=== PATIENT | male | born 1940 | race Caucasian/White ===

== ENCOUNTER 2016-08-08 00:55 | Inpatient (IN) | payer MEDICARE, OTHER ==
[2016-08-08] VITALS (13 sets, daily range): BP systolic 98–124; BP diastolic 50–72
[~2016-08-08] VITALS: Ht 170.2 cm; Wt 68.9 kg
[~2016-08-08 00:55] MED LIST: ASPI-482 PO; BENA20TA2 PO; CYAN100031 PO; FOLI0.8T2 PO; MAGN400C PO; METO25TA4 PO; NITR0.4T SL; PANT40TA5 PO; POTA10TA31 PO; SIMV40TA3 PO; TAMS0.4C2 PO; VITA1TAB31 PO
[2016-08-08 01:59] LABS: BASO % 0 % (0-3); EOS % 1 % (0-3); HEMATOCRIT 35.1 % (39.0-53.0); HEMOGLOBIN 11.2 g/dL (13.0-17.5); LYMPH # 1.5 x10^3/uL (1.0-4.8); LYMPH % 8 % (24-48); MEAN CORPUSCULAR HEMOGLOBIN 28 pg (25-35); MEAN CORPUSCULAR HGB CONC 32 g/dL (31-37); MEAN CORPUSCULAR VOLUME 89 fL (79-100); MONO % 5 % (0-9); NEUT % 86 % (31-73); PLATELET COUNT 281 x10^3/uL (140-400); RED BLOOD COUNT 3.95 x10^6/uL (4.30-5.70); RED CELL DISTRIBUTION WIDTH 13.7 % (11.5-14.5)
[2016-08-08] MEDS ORDERED: fentaNYL PF VIAL 100 MCG/2 ML VIAL IV PRN ×4 (02:00→12:45)
[2016-08-08 02:08] LABS: INR 1.2 (0.8-1.1)
[2016-08-08 02:10] LABS: CALCIUM 8.7 mg/dL (8.5-10.1); CREATININE 1.2 mg/dL (0.7-1.3); GFR 59.3; POTASSIUM 4.4 mmol/L (3.5-5.1)
[2016-08-08] MEDS ORDERED: IV NORMAL SALINE 1000ML BAG 1,000 ML IV SCH (02:15)
[2016-08-08] MEDS ORDERED: PANTOPRAZOLE IV PUSH 40 MG VIAL. IVP ONE (02:15)
[2016-08-08] MEDS ORDERED: ONDANSETRON PF 4 MG/2 ML VIAL. IV ONE (02:15)
--- NOTE | 2016-08-08 02:15 | PHYS DOC ---
Past Medical History Past Medical History: CAD, Cancer, High Cholesterol, Other Additional Past Medical Histor: ESOPHAGUS CANCER 2012,UT 2011 W STENT X 1, Past Surgical History: Other Additional Past Surgical Histo: CARDIAC STENTS,THYROIDECTOMY,PARTAIL ESOPH. REMOVAL Alcohol Use: Occasionally Drug Use: None Adult General Chief Complaint Chief Complaint: HEMATEMESIS/VOMITING BLOOD HPI HPI Patient is a 75 year old male who presents with hematemesis. Patient states his symptoms started approximately 5 hours prior to arrival. Patient states he suddenly had vomiting of bright red blood at home. Patient states that he had been having nausea for the past 3-4 days. 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 Patient has undergone treatment with radiation and chemotherapy. Patient states his last treatments were given over one year ago. Patient states that he has had problems with bleeding peptic ulcers in the past. Patient denies any black stools. Patient has had lightheadedness and states that prior to arrival he had upper abdominal pain. Patient states currently he is having no pain but still feels nauseous and weak. Patient has not taken any medications to help with symptoms at this time. Review of Systems Review of Systems Constitutional: Generalized weakness, denies fever or chills [] Eyes: Denies change in visual acuity, redness, or eye pain [] HENT: Denies nasal congestion or sore throat [] Respiratory: Denies cough or shortness of breath [] Cardiovascular: Denies chest pain or edema [] GI: Abdominal pain, nausea, hematemesis, denies bloody stools [] : Denies dysuria or hematuria [] Musculoskeletal: Denies back pain or joint pain [] Integument: Denies rash or skin lesions [] Neurologic: Denies headache, focal weakness or sensory changes [] Current Medications Current Medications Current Medications Medications (Trade) Dose Ordered Sig/Rita Start Time Stop Time Status Last Admin Dose Admin Fentanyl Citrate (Fentanyl 2ml Vial) 50 mcg PRN Q2HR PRN 08/08/16 03:30 08/09/16 03:29 Ondansetron HCl (Zofran) 4 mg PRN Q8HRS PRN 08/08/16 03:30 08/09/16 03:29 Pantoprazole Sodium (Protonix Vial) 40 mg 1X ONCE 08/08/16 02:15 08/08/16 02:16 DC 08/08/16 02:18 40 MG Pantoprazole Sodium 80 mg/ Sodium Chloride 100 ml @ 10 mls/hr Q10H 08/08/16 03:30 08/09/16 03:29 Sodium Chloride 1,000 ml @ 100 mls/hr Q10H 08/08/16 03:26 08/09/16 03:25 Allergies Allergies Allergies Coded Allergies Type Severity Reaction Last Updated Verified morphine Allergy Intermediate HALLUCINATE 10/08/15 Yes Penicillins Allergy Mild JOINT PAIN 10/08/15 Yes Physical Exam Physical Exam Constitutional: Alert, afebrile, appears ill. [] HENT: Normocephalic, atraumatic, bilateral external ears normal, oropharynx moist, no oral exudates, nose normal. [] Eyes: PERRLA, EOMI, conjunctiva normal, no discharge. [] Neck: Normal range of motion, no tenderness, supple, no stridor. [] Cardiovascular: Tachycardia, regular rhythm, no murmur [] Lungs & Thorax: Bilateral breath sounds clear to auscultation [] Abdomen: Bowel sounds normal, soft, no tenderness, no masses, no pulsatile masses. [] Skin: Warm, dry, no erythema, no rash. [] Back: No tenderness, no CVA tenderness. [] Extremities: No tenderness, no cyanosis, no clubbing, ROM intact, no edema. [] Neurologic: Alert and oriented X 3, normal motor function, normal sensory function, no focal deficits noted. [] Current Patient Data Vital Signs Vital Signs Date Time Temp Pulse Resp B/P (MAP) Pulse Ox O2 Delivery O2 Flow Rate FiO2 08/08/16 01:15 98.1 116 16 106/70 (82) 92 Room Air 98.1 Lab Values Laboratory Tests Test 08/08/16 01:20 White Blood Count 18.0 x10^3/uL (4.0-11.0) H Red Blood Count 3.95 x10^6/uL (4.30-5.70) L Hemoglobin 11.2 g/dL (13.0-17.5) L Hematocrit 35.1 % (39.0-53.0) L Mean Corpuscular Volume 89 fL (79-100) Mean Corpuscular Hemoglobin 28 pg (25-35) Mean Corpuscular Hemoglobin Concent 32 g/dL (31-37) Red Cell Distribution Width 13.7 % (11.5-14.5) Platelet Count 281 x10^3/uL (140-400) Neutrophils (%) (Auto) 86 % (31-73) H Lymphocytes (%) (Auto) 8 % (24-48) L Monocytes (%) (Auto) 5 % (0-9) Eosinophils (%) (Auto) 1 % (0-3) Basophils (%) (Auto) 0 % (0-3) Neutrophils # (Auto) 15.4 x10^3uL (1.8-7.7) H Lymphocytes # (Auto) 1.5 x10^3/uL (1.0-4.8) Monocytes # (Auto) 0.9 x10^3/uL (0.0-1.1) Eosinophils # (Auto) 0.1 x10^3/uL (0.0-0.7) Basophils # (Auto) 0.0 x10^3/uL (0.0-0.2) Segmented Neutrophils % 85 % (35-66) H Band Neutrophils % 1 % (0-9) Lymphocytes % 11 % (24-48) L Monocytes % 2 % (0-10) Metamyelocytes % 1 % (0-0) H Platelet Estimate Adequate (ADEQUATE) Prothrombin Time 14.0 SEC (11.7-14.0) Prothrombin Time INR 1.2 (0.8-1.1) H PTT 30 SEC (24-38) Sodium Level 142 mmol/L (136-145) Potassium Level 4.4 mmol/L (3.5-5.1) Chloride Level 103 mmol/L (98-107) Carbon Dioxide Level 31 mmol/L (21-32) Anion Gap 8 (6-14) Blood Urea Nitrogen 44 mg/dL (8-26) H Creatinine 1.2 mg/dL (0.7-1.3) Estimated GFR (Cockcroft-Gault) 59.3 BUN/Creatinine Ratio 37 (6-20) H Glucose Level 211 mg/dL (70-99) H Calcium Level 8.7 mg/dL (8.5-10.1) Total Bilirubin 0.3 mg/dL (0.2-1.0) Aspartate Amino Transferase (AST) 14 U/L (15-37) L Alanine Aminotransferase (ALT) 17 U/L (16-63) Alkaline Phosphatase 77 U/L (46-116) Total Protein 7.0 g/dL (6.4-8.2) Albumin 3.2 g/dL (3.4-5.0) L Albumin/Globulin Ratio 0.8 (1.0-1.7) L Lipase 141 U/L (73-393) Laboratory Tests 08/08/16 01:20 Laboratory Tests 08/08/16 01:20 EKG EKG Interpreted by me: Heart rate 93, sinus rhythm, normal intervals, normal axis, no acute ST/T-wave abnormalities present [] Radiology/Procedures Radiology/Procedures 3 view acute abdominal series interpreted by me: No pulmonary infiltrates or effusions, no free air under the diaphragm, nonobstructive bowel gas pattern [] Course & Med Decision Making Course & Med Decision Making Pertinent Labs and Imaging studies reviewed. (See chart for details) Patient started on IV fluids, fentanyl, Protonix, and Zofran. The patient will be continued on Protonix drip. Patient hemoglobin at this time is slightly decreased and patient's BUN level is significantly elevated. Patient is hemodynamically stable at this time. The patient will be continued on IV Protonix drip and IV fluids and will be admitted to the hospital for further evaluation and care. Patient admitted to Dr. Maher. A consult was placed to Dr. Jaimes of gastroenterology to follow with patient in hospital. Dragon Disclaimer Dragon Disclaimer This electronic medical record was generated, in whole or in part, using a voice recognition dictation system. Departure Departure Impression: Primary Impression: Acute GI bleeding Additional Impressions: Peptic ulcer disease History of esophageal cancer Hyperglycemia Mild protein malnutrition Disposition: ADMITTED INPATIENT Admitting Physician: Pranav Maher Condition: GUARDED Referrals: GRUPO RICHARDSON Jr, MD (PCP) Problem Qualifiers JOSE MIGUEL FIELD MD August 08, 2016 02:15
[2016-08-08 02:17] LABS: ALBUMIN 3.2 g/dL (3.4-5.0); ALBUMIN/GLOBULIN RATIO 0.8 (1.0-1.7); TOTAL BILIRUBIN 0.3 mg/dL (0.2-1.0)
[2016-08-08 03:05] LABS: PLT ESTIMATE ADEQUATE (ADEQUATE)
[2016-08-08] MEDS ORDERED: ONDANSETRON PF 4 MG/2 ML VIAL. IV PRN ×2 (03:30→09:36)
[2016-08-08] MEDS: PANTOPRAZOLE SODIUM IV 80 MG in IV NORMAL SALINE 100ML 100 ML IV SCH ×3 (05:06→23:30)
[2016-08-08] MEDS: IV NORMAL SALINE 1000ML BAG 1,000 ML IV SCH ×3 (05:06→18:25)
[2016-08-08] MEDS ORDERED: MAG355OR12 PO (05:56)
[2016-08-08] MEDS ORDERED: PSYL0.5215 PO (05:56)
[2016-08-08] MEDS ORDERED: HYDR12.58 PO (05:56)
[2016-08-08] MEDS ORDERED: ASPI-482 PO (05:56)
[2016-08-08] MEDS ORDERED: OMEP20CA9 PO (05:56)
--- NOTE | 2016-08-08 06:43 | EKG ---
[facility] [address] [place] [address] Test Date: 2016-08-08 Test Time: 01:23:40 Pat Name: RIMA DEL REAL Department: Room: 402 1 Gender: M Urology Teacher: TW EMT : 1940 Requested By: JOSE MIGUEL FIELD Order Number: [id number] Reading MD: Pierre Baltazar Measurements Intervals [place] Rate: 93 P: 51 CA: 156 QRS: -34 QRSD: 80 T: 49 QT: 364 QTc: 455 Interpretive Statements SINUS RHYTHM Electronically Signed On 08-09-2016 9:23:36 CDT by Pierre Baltazar
--- NOTE | 2016-08-08 08:16 | RAD ---
Indication hematemesis. A single view of the chest was obtained as well as flat and upright films of the abdomen. The chest is compared to a study 02/24/2015. There are changes compatible with esophagectomy and gastric pull-up. The appearance of the chest is similar to the previous exam. The heart and pulmonary vessels are within normal limits. An acute parenchymal infiltrate in the chest or significant change compared to the previous exam is not seen. There is no free air. An acute finding in the abdomen is not apparent on plain films. Benign-appearing calcifications are noted. IMPRESSION: No acute finding seen in the chest or abdomen on plain films
--- NOTE | 2016-08-08 09:14 | PDOC2 ---
GI CONSULT Reason For Consult: Upper GI Bleed HPI: HPI: 75 y/o male admitted through the ER for hematemesis. He reports he has had some vague lower abdominal pain and has been losing some weight. He ate dinner around 7:00 or 8:00 last night, and then at 9:00 felt "sick to his stomach" and vomited "dark purple" material about 3 times. Bleeding has not recurred since admission. Labs: WBC 18, Hgb 11.2, INR 1.2, BUN 44. Abd x-ray unrevealing. Has been NPO on PPI drip. GI history is significant for esophageal cancer s/p resection and chemo/ radiation in 2012. Relays history of GI bleed in 2014; saw Dr. Celaya and reports EGD showed some small gastric ulcers. Seems had colonoscopy a couple months later (also w/ Dr. Celaya) which showed "a lot of holes" (diverticulosis). Takes ASA 81mg QD, no other NSAIDs. Takes omeprazole and Maalox QHS. Denies dysphagia, diarrhea, constipation, melena, hematochezia. His is actually currently admitted as well. PMH: PMH: esophageal cancer s/p resection w/ chemo/radiation, [place], CAD s/p stent, COPD, HLD , partial thyroidectomy, cholecystectomy, PEG tube placement/removal FH: Family History: No pertinent hx Social History: Smoke: Quit ALCOHOL: occassional (1-2 beers per month) Drugs: None ROS: GEN: Denies fevers, chills, sweats HEENT: Denies blurred vision, sore throat CV: Denies chest pain RESP: Denies shortness of air, cough GI: Per HPI : Denies hematuria, dysuria ENDO: +weight loss NEURO: Denies confusion, dizziness MSK: Denies weakness, joint pain/swelling SKIN: Denies jaundice, pruritus Vitals: Vitals: Vital Signs Date Time Temp Pulse Resp B/P (MAP) Pulse Ox O2 Delivery O2 Flow Rate FiO2 08/08/16 07:15 97.9 97 18 113/66 (82) 96 Room Air 97.9 Labs: Labs: Laboratory Tests Test 08/08/16 01:20 White Blood Count 18.0 x10^3/uL (4.0-11.0) Red Blood Count 3.95 x10^6/uL (4.30-5.70) Hemoglobin 11.2 g/dL (13.0-17.5) Hematocrit 35.1 % (39.0-53.0) Mean Corpuscular Volume 89 fL (79-100) Mean Corpuscular Hemoglobin 28 pg (25-35) Mean Corpuscular Hemoglobin Concent 32 g/dL (31-37) Red Cell Distribution Width 13.7 % (11.5-14.5) Platelet Count 281 x10^3/uL (140-400) Neutrophils (%) (Auto) 86 % (31-73) Lymphocytes (%) (Auto) 8 % (24-48) Monocytes (%) (Auto) 5 % (0-9) Eosinophils (%) (Auto) 1 % (0-3) Basophils (%) (Auto) 0 % (0-3) Neutrophils # (Auto) 15.4 x10^3uL (1.8-7.7) Lymphocytes # (Auto) 1.5 x10^3/uL (1.0-4.8) Monocytes # (Auto) 0.9 x10^3/uL (0.0-1.1) Eosinophils # (Auto) 0.1 x10^3/uL (0.0-0.7) Basophils # (Auto) 0.0 x10^3/uL (0.0-0.2) Segmented Neutrophils % 85 % (35-66) Band Neutrophils % 1 % (0-9) Lymphocytes % 11 % (24-48) Monocytes % 2 % (0-10) Metamyelocytes % 1 % (0-0) Platelet Estimate Adequate (ADEQUATE) Prothrombin Time 14.0 SEC (11.7-14.0) Prothromb Time International Ratio 1.2 (0.8-1.1) Activated Partial Thromboplast Time 30 SEC (24-38) Sodium Level 142 mmol/L (136-145) Potassium Level 4.4 mmol/L (3.5-5.1) Chloride Level 103 mmol/L (98-107) Carbon Dioxide Level 31 mmol/L (21-32) Anion Gap 8 (6-14) Blood Urea Nitrogen 44 mg/dL (8-26) Creatinine 1.2 mg/dL (0.7-1.3) Estimated GFR (Cockcroft-Gault) 59.3 BUN/Creatinine Ratio 37 (6-20) Glucose Level 211 mg/dL (70-99) Calcium Level 8.7 mg/dL (8.5-10.1) Total Bilirubin 0.3 mg/dL (0.2-1.0) Aspartate Amino Transf (AST/SGOT) 14 U/L (15-37) Alanine Aminotransferase (ALT/SGPT) 17 U/L (16-63) Alkaline Phosphatase 77 U/L (46-116) Total Protein 7.0 g/dL (6.4-8.2) Albumin 3.2 g/dL (3.4-5.0) Albumin/Globulin Ratio 0.8 (1.0-1.7) Lipase 141 U/L (73-393) Allergies: Coded Allergies: morphine (Verified Allergy, Intermediate, HALLUCINATE, 10/08/15) Penicillins (Verified Allergy, Mild, JOINT PAIN, 10/08/15) Medications: Current Medications Medications (Trade) Dose Ordered Sig/Rita Route PRN Reason Start Time Stop Time Status Last Admin Dose Admin Sodium Chloride 1,000 ml @ 1,000 mls/hr Q1H IV 08/08/16 02:15 08/08/16 03:14 DC 08/08/16 02:19 Ondansetron HCl (Zofran) 4 mg 1X ONCE IV 08/08/16 02:15 08/08/16 02:16 DC 08/08/16 02:18 Pantoprazole Sodium (Protonix Vial) 40 mg 1X ONCE IVP 08/08/16 02:15 08/08/16 02:16 DC 08/08/16 02:18 Sodium Chloride 1,000 ml @ 100 mls/hr Q10H IV 08/08/16 03:26 08/09/16 03:25 08/08/16 05:06 Pantoprazole Sodium 80 mg/ Sodium Chloride 100 ml @ 10 mls/hr Q10H IV 08/08/16 03:30 08/09/16 03:29 08/08/16 05:06 Imaging: Imaging: Acute Abd Series 08/08/16 IMPRESSION: No acute finding seen in the chest or abdomen on plain films. PE: GEN: NAD HEENT: Atraumatic, PERRL LUNGS: CTAB anteriorly HEART: RRR ABD: NABS, S/ND, BLQ discomfort EXTREMITY: No edema SKIN: No rashes, no jaundice NEURO/PSYCH: A & O 3 A/P: A/P: Hematemesis -sudden onset last night, "dark purple" emesis x 3 -takes ASA 81mg QD + omeprazole and Maalox QHS Lower abd pain, weight loss H/o esophageal cancer s/p resection, chemo/rad -2012 H/o GI bleed, PUD, diverticulosis -had EGD and colonoscopy w/ Dr. Celaya in [id number] CRC screen -up to date Leukocytosis, anemia -Hgb 11.2 w/ elevated BUN -Hgb was in 7-9 range around the time of previous GI bleed -- Keep NPO on PPI drip. EGD this afternoon to assess for recurrent esophageal cancer, esophagitis, or PUD. D/w GI lab and CUONG. KRISTIN REDMOND August 08, 2016 09:14
--- NOTE | 2016-08-08 11:59 | PDOC1 ---
History and Physical Date of Admission Date of Admission DATE: 08/08/16 TIME: 11:54 Identification/Chief Complaint Chief Complaint vomited blood at home after dinner Problems: Source Source: Caregiver, Chart review, Patient History of Present Illness History of Present Illness Very pleasant 75 y.o male, hx esophageal CA? s/p resection? chemo/ radiation, went home after visiting his here who is hospitalized, ate dinner, then vomited blood quite significant amount, did it 3x. SOme abd pain, Known to Dr. Mendoza, last EGD 18 mos ago., did twice, second time found "ulcers". Followed by Cscope afterwards, was ok. VS ok, hgb 11. started on IVF and PPI gtt on admit by ER/GI. PLans of EGD today, Pt denies any recurrence since admit, no pain, watching tv TAkes ASA 81 at home, no NSAIDs or AC (blood thinners) Past Medical History Cardiovascular: No pertinent hx Pulmonary: No pertinent hx GI: Gastritis, Other Heme/Onc: Cancer Infectious disease: No pertinent hx Renal/: No pertinent hx Endocrine: No pertinent hx Past Surgical History Past Surgical History: Other Family History Family History: No Significant Social History Smoke: No ALCOHOL: none (1-2 beers per month) Drugs: None Current Problem List Problem List Problems Medical Problems: (1) Acute GI bleeding Status: Acute (2) History of esophageal cancer Status: Acute (3) Hyperglycemia Status: Acute (4) Mild protein malnutrition Status: Acute (5) Peptic ulcer disease Status: Acute Problems: Current Medications Current Medications Current Medications Fentanyl Citrate (Fentanyl 2ml Vial) 50 mcg PRN Q15MIN PRN IV PAIN GREATER THAN 3/10; Start 08/08/16 at 02:00; Stop 08/08/16 at 05:00; Status DC Sodium Chloride 1,000 ml @ 1,000 mls/hr Q1H IV Last administered on 08/08/16 02:19; Start 08/08/16 at 02:15; Stop 08/08/16 at 03:14; Status DC Ondansetron HCl (Zofran) 4 mg 1X ONCE IV Last administered on 08/08/16 02:18 ; Start 08/08/16 at 02:15; Stop 08/08/16 at 02:16; Status DC Pantoprazole Sodium (Protonix Vial) 40 mg 1X ONCE IVP Last administered on 02:18; Start 08/08/16 at 02:15; Stop 08/08/16 at 02:16; Status DC Ondansetron HCl (Zofran) 4 mg PRN Q8HRS PRN IV NAUSEA/VOMITING; Start 08/08/16 at 03:30; Stop 08/08/16 at 09:38; Status DC Fentanyl Citrate (Fentanyl 2ml Vial) 50 mcg PRN Q2HR PRN IV SEVERE PAIN; Start 08/08/16 at 03:30; Stop 08/09/16 at 03:29 Sodium Chloride 1,000 ml @ 100 mls/hr Q10H IV Last administered on 08/08/16 05:06; Start 08/08/16 at 03:26; Stop 08/09/16 at 03:25 Pantoprazole Sodium 80 mg/ Sodium Chloride 100 ml @ 10 mls/hr Q10H IV Last administered on 08/08/16 05:06; Start 08/08/16 at 03:30; Stop 08/09/16 at 03:29 Ondansetron HCl (Zofran) 4 mg PRN Q6HRS PRN IV NAUSEA/VOMITING; Start 08/08/16 at 09:36; Stop 08/09/16 at 09:35 Active Scripts Active Pantoprazole Sodium 40 Mg Tablet.dr 40 Mg PO BID Reported Metamucil (Psyllium Husk) 0.52 Gm Capsule 0.52 Gm PO PRN DAILY PRN Hydrochlorothiazide Tablet (Hydrochlorothiazide) 12.5 Mg Tablet 25 Mg PO DAILY Aspir 81 (Aspirin) 81 Mg Tablet.dr 1 Tab PO DAILY Maalox Maximum Strength Susp (Mag Hydrox/Al Hydrox/Simeth) 355 Ml Oral.susp 355 Ml PO DAILY Omeprazole 20 Mg Capsule.dr 1 Cap PO DAILYWSUP Potassium Chloride 10 Meq Tab.er.prt 10 Meq PO DAILY Tamsulosin Hcl 0.4 Mg Cap.er.24h 0.4 Mg PO B-12 (Cyanocobalamin (Vitamin B-12)) 1,000 Mcg Tablet.er 1,000 Mcg PO Metoprolol Tartrate 25 Mg Tablet 25 Mg PO BID Magnesium (Magnesium Oxide) 400 Mg Capsule 400 Mg PO Folic Acid 0.8 Mg Tablet 0.8 Mg PO D3 + K2 Dots 1,000 Units Tab (Vitamin D3/Vitamin K2) 1 Each Tab.rapdis 1 Each PO Simvastatin 40 Mg Tablet 40 Mg PO QHS Nitrostat (Nitroglycerin) 0.4 Mg Tab.subl 0.4 Mg SL Allergies Allergies: Coded Allergies: morphine (Verified Allergy, Intermediate, HALLUCINATE, 10/08/15) Penicillins (Verified Allergy, Mild, JOINT PAIN, 10/08/15) ROS General: No: Chills, Night Sweats, Fatigue, Malaise, Appetite, Other PSYCHOLOGICAL ROS: No: Anxiety, Behavioral Disorder, Concentration difficultie , Decreased libido, Depression, Disorientation, Hallucinations, Hostility, Irritablity, Memory difficulties, Mood Swings, Obsessive thoughts, Physical abuse, Sexual abuse, Sleep disturbances, Suicidal ideation, Other Eyes: No Blurry vision, No Decreased vision, No Double vision, No Dry eyes, No Excessive tearing, No Eye Pain, No Itchy Eyes, No Loss of vision, No Photophobia , No Scotomata, No Uses contacts, No Uses glasses, No Other HEENT: No: Heacaches, Visual Changes, Hearing change, Nasal congestion, Nasal discharge, Oral lesions, Sinus pain, Sore Throat, Epistaxis, Sneezing, Snoring, Tinnitus, Vertigo, Vocal changes, Other ALLERGY AND IMMUNOLOGY: No: Hives, Insect Bite Sensitivity, Itchy/Watery Eyes, Nasal Congestion, Post Nasal Drip, Seasonal Allergies, Other Hematological and Lymphatic: No: Bleeding Problems, Blood Clots, Blood Transfusions, Brusing, Night Sweats, Pallor, Swollen Lymph Nodes, Other ENDOCRINE: No: Breast Changes, Galactorrhea, Hair Pattern Changes, Hot Flashes , Malaise/lethargy, Mood Swings, Palpitations, Polydipsia/polyuria, Skin Changes , Temperature Intolerance, Unexpected Weight Changes, Other Breast: No New/Changing Breast Lumps, No Nipple changes, No Nipple discharge, No Other Respiratory: No: Cough, Hemoptysis, Orthopnea, Pleuritic Pain, Shortness of breath, SOB with excertion, Sputum Changes, Stridor, Tachypnea, Wheezing, Other Cardiovascular: No Chest Pain, No Palpitations, No Orthopnea, No Paroxysmal Noc. Dyspnea, No Edema, No Lt Headedness, No Other Gastrointestinal: No Nausea, No Vomiting, No Abdominal Pain, No Diarrhea, No Constipation, No Melena, No Hematochezia, No Other Genitourinary: No Dysuria, No Frequency, No Incontinence, No Hematuria, No Retention, No Discharge, No Urgency, No Pain, No Flank Pain, No Other, No , No , No , No , No , No , No Musculoskeletal: No Gait Disturbance, No Joint Pain, No Joint Stiffness, No Joint Swelling, No Muscle Pain, No Muscular Weakness, No Pain In:, No Swelling In:, No Other Neurological: No Behavorial Changes, No Bowel/Bladder ControlChng, No Confusion , No Dizziness, No Gait Disturbance, No Headaches, No Impaired Coord/balance, No Memory Loss, No Numbness/Tingling, No Seizures, No Speech Problems, No Tremors, No Visual Changes, No Weakness, No Other Skin: No Dry Skin, No Eczema, No Hair Changes, No Lumps, No Mole Changes, No Mottling, No Nail Changes, No Pruritus, No Rash, No Skin Lesion Changes, No Other, No Acne Physical Exam General: Alert, Oriented X3, Cooperative, No acute distress HEENT: PERRLA, EOMI Lungs: Clear to auscultation, Normal air movement Heart: S1S2, RRR, no thrills, no rubs, no gallops, no murmurs Cardiovascular: S1, S2 Abdomen: Normal bowel sounds, Soft, No tenderness, No hepatosplenomegaly, No masses Male Genitals Exam: normal genitalia, normal prostate Rectal Exam: not examined, mass Extremities: No clubbing, No cyanosis, No edema, Normal pulses, No tenderness/ swelling Skin: No rashes, No breakdown, No significant lesion Neuro: Normal gait, Normal speech, Strength at 5/5 X4 ext, Normal tone, Sensation intact, Cranial nerves 3-12 NL, Reflexes 2+ Psych/Mental Status: Mental status NL, Mood NL Vitals Vitals Vital Signs Date Time Temp Pulse Resp B/P (MAP) Pulse Ox O2 Delivery O2 Flow Rate FiO2 08/08/16 11:07 99.0 84 20 107/63 (78) 97 Room Air 99.0 Labs Labs Laboratory Tests Test 08/08/16 01:20 White Blood Count 18.0 x10^3/uL (4.0-11.0) Red Blood Count 3.95 x10^6/uL (4.30-5.70) Hemoglobin 11.2 g/dL (13.0-17.5) Hematocrit 35.1 % (39.0-53.0) Mean Corpuscular Volume 89 fL (79-100) Mean Corpuscular Hemoglobin 28 pg (25-35) Mean Corpuscular Hemoglobin Concent 32 g/dL (31-37) Red Cell Distribution Width 13.7 % (11.5-14.5) Platelet Count 281 x10^3/uL (140-400) Neutrophils (%) (Auto) 86 % (31-73) Lymphocytes (%) (Auto) 8 % (24-48) Monocytes (%) (Auto) 5 % (0-9) Eosinophils (%) (Auto) 1 % (0-3) Basophils (%) (Auto) 0 % (0-3) Neutrophils # (Auto) 15.4 x10^3uL (1.8-7.7) Lymphocytes # (Auto) 1.5 x10^3/uL (1.0-4.8) Monocytes # (Auto) 0.9 x10^3/uL (0.0-1.1) Eosinophils # (Auto) 0.1 x10^3/uL (0.0-0.7) Basophils # (Auto) 0.0 x10^3/uL (0.0-0.2) Segmented Neutrophils % 85 % (35-66) Band Neutrophils % 1 % (0-9) Lymphocytes % 11 % (24-48) Monocytes % 2 % (0-10) Metamyelocytes % 1 % (0-0) Platelet Estimate Adequate (ADEQUATE) Prothrombin Time 14.0 SEC (11.7-14.0) Prothromb Time International Ratio 1.2 (0.8-1.1) Activated Partial Thromboplast Time 30 SEC (24-38) Sodium Level 142 mmol/L (136-145) Potassium Level 4.4 mmol/L (3.5-5.1) Chloride Level 103 mmol/L (98-107) Carbon Dioxide Level 31 mmol/L (21-32) Anion Gap 8 (6-14) Blood Urea Nitrogen 44 mg/dL (8-26) Creatinine 1.2 mg/dL (0.7-1.3) Estimated GFR (Cockcroft-Gault) 59.3 BUN/Creatinine Ratio 37 (6-20) Glucose Level 211 mg/dL (70-99) Calcium Level 8.7 mg/dL (8.5-10.1) Total Bilirubin 0.3 mg/dL (0.2-1.0) Aspartate Amino Transf (AST/SGOT) 14 U/L (15-37) Alanine Aminotransferase (ALT/SGPT) 17 U/L (16-63) Alkaline Phosphatase 77 U/L (46-116) Total Protein 7.0 g/dL (6.4-8.2) Albumin 3.2 g/dL (3.4-5.0) Albumin/Globulin Ratio 0.8 (1.0-1.7) Lipase 141 U/L (73-393) Laboratory Tests Test 08/08/16 01:20 White Blood Count 18.0 x10^3/uL (4.0-11.0) Red Blood Count 3.95 x10^6/uL (4.30-5.70) Hemoglobin 11.2 g/dL (13.0-17.5) Hematocrit 35.1 % (39.0-53.0) Mean Corpuscular Volume 89 fL (79-100) Mean Corpuscular Hemoglobin 28 pg (25-35) Mean Corpuscular Hemoglobin Concent 32 g/dL (31-37) Red Cell Distribution Width 13.7 % (11.5-14.5) Platelet Count 281 x10^3/uL (140-400) Neutrophils (%) (Auto) 86 % (31-73) Lymphocytes (%) (Auto) 8 % (24-48) Monocytes (%) (Auto) 5 % (0-9) Eosinophils (%) (Auto) 1 % (0-3) Basophils (%) (Auto) 0 % (0-3) Neutrophils # (Auto) 15.4 x10^3uL (1.8-7.7) Lymphocytes # (Auto) 1.5 x10^3/uL (1.0-4.8) Monocytes # (Auto) 0.9 x10^3/uL (0.0-1.1) Eosinophils # (Auto) 0.1 x10^3/uL (0.0-0.7) Basophils # (Auto) 0.0 x10^3/uL (0.0-0.2) Segmented Neutrophils % 85 % (35-66) Band Neutrophils % 1 % (0-9) Lymphocytes % 11 % (24-48) Monocytes % 2 % (0-10) Metamyelocytes % 1 % (0-0) Platelet Estimate Adequate (ADEQUATE) Prothrombin Time 14.0 SEC (11.7-14.0) Prothromb Time International Ratio 1.2 (0.8-1.1) Activated Partial Thromboplast Time 30 SEC (24-38) Sodium Level 142 mmol/L (136-145) Potassium Level 4.4 mmol/L (3.5-5.1) Chloride Level 103 mmol/L (98-107) Carbon Dioxide Level 31 mmol/L (21-32) Anion Gap 8 (6-14) Blood Urea Nitrogen 44 mg/dL (8-26) Creatinine 1.2 mg/dL (0.7-1.3) Estimated GFR (Cockcroft-Gault) 59.3 BUN/Creatinine Ratio 37 (6-20) Glucose Level 211 mg/dL (70-99) Calcium Level 8.7 mg/dL (8.5-10.1) Total Bilirubin 0.3 mg/dL (0.2-1.0) Aspartate Amino Transf (AST/SGOT) 14 U/L (15-37) Alanine Aminotransferase (ALT/SGPT) 17 U/L (16-63) Alkaline Phosphatase 77 U/L (46-116) Total Protein 7.0 g/dL (6.4-8.2) Albumin 3.2 g/dL (3.4-5.0) Albumin/Globulin Ratio 0.8 (1.0-1.7) Lipase 141 U/L (73-393) VTE Prophylaxis Ordered VTE Prophylaxis Devices: Contraindicated VTE Pharmacological Prophylaxi: Contraindicated Assessment/Plan Assessment/Plan 1. Hematemesis 2. Acute blood loss anemia, possible on top of chronic anemia of hx malignancy 3. esophageal cancer s/p resection w/ chemo/radiation, [place], CAD s/p stent, COPD, HLD, partial thyroidectomy, cholecystectomy, PEG tube placement/removal PLAN: NPO, PPI gtt Admit 2MN IVF GI consult NO NSAIDs, hold ASA, hold AC SCDs supportive care Dw pt and RN and his JAMES ARRIAGA August 08, 2016 11:59
[2016-08-08] MEDS ORDERED: LIDOCAINE 1% 1 ML SYRINGE. ID PRN (12:45)
[2016-08-08] MEDS ORDERED: MIDAZOLAM HCL/PF 2 MG/2 ML VIAL. IV PRN (12:45)
[2016-08-08] MEDS: IV RINGERS,LACTATED 1000ML 1,000 ML IV SCH ×2 (12:52→20:31)
[2016-08-08] MEDS ORDERED: LIDOCAINE 2% PF Vial for OR 5 ML VIAL. ONE (13:17)
[2016-08-08] MEDS ORDERED: PROPOFOL 20 ML IV ONE ×2 (13:17→13:41)
--- NOTE | 2016-08-08 13:46 | PDOC4 ---
Operative Note Operative Note EGD Meds propofol per anesthesia Pre-op dx acute blood loss anemia/hematemesis Post-op dx normal esophagus s/p pull through with ge junction at 30 cm and clear GE junction without varices normal duodenum without ulcer or retained blood after washing adherent clot less er [id number] base Plan IR consult for possible embolization RYAN MONTE MD August 08, 2016 13:46
[2016-08-08] MEDS ORDERED: IOHEXOL 300 MG/ML 100ML VIAL. ONE (14:46)
[2016-08-08] MEDS ORDERED: HEPARIN for ARTERIAL LINE 1,500 ML ONE (14:47)
[2016-08-08] MEDS ORDERED: LIDOCAINE 1% / SOD BICARB 8.4% 20 ML VIAL. IJ ONE ×2 (14:47→16:00)
[2016-08-08] MEDS ORDERED: MIDAZOLAM HCL/PF 5 MG/5 ML VIAL. ONE (15:31)
[2016-08-08] MEDS ORDERED: fentaNYL PF VIAL 250 MCG/5 ML VIAL ONE (15:31)
[2016-08-08] MEDS ORDERED: fentaNYL PF VIAL 250 MCG/5 ML VIAL IV ONE (16:00)
[2016-08-08] MEDS ORDERED: NITROGLYCERIN 200 MCG/2 ML SYRINGE FOR CATH/VASC LAB. IART ONE (16:00)
[2016-08-08] MEDS ORDERED: IOHEXOL 300 MG/ML 100ML VIAL. IART ONE (16:00)
[2016-08-08] MEDS ORDERED: MIDAZOLAM HCL/PF 5 MG/5 ML VIAL. IV ONE (16:00)
[2016-08-08] MEDS ORDERED: CONTRAST GIVEN MC PRN (16:15)
[2016-08-08] MEDS ORDERED: GELATIN SPONGE SIZE 12-7MM SPONGE. ONE (16:20)
--- NOTE | 2016-08-08 17:13 | PDOC ---
MODERATE SEDATION ASSESSMENT RISKS/ALTERNATIVES Risks/Alternatives Risks and alternatives of this type of sedation and procedure discussed with: RISK/ALTERNATIVES: Patient H & P ON CHART H & P H & P on chart and reviewed for co-morbid conditions and appropriate labs. H&P ON CHART: Yes STATUS PREG STATUS ASSESSED: N/A MEDS/ALLERGIES REVIEWED Meds/Allergies Reviewed Medications and Allergies including time and route of recently administered narcotics and sedatives. MEDS/ALLERGIES REVIEWED: Yes ASA RATING ASA RATING: II AIRWAY ASSESSMENT Airway Assessment Airway patency, oral function limitations, presence of caps, crowns, dentures, partials, and ability to extend neck assessed. AIRWAY ASSESSMENT: Yes MALLAMPATI SCORE MALLAMPATI SCORE: II PRE-SEDATION ASSESSMENT PRE-SEDATION ASSESSMENT: Yes JOIE FARRELL MD August 08, 2016 17:13
--- NOTE | 2016-08-08 17:19 | PDOC ---
Exam Transit Operations Supervisor Transit Operations Supervisor Reinier Classification Control Clerk Classification Control Clerk F Ndumbu Pre-Procedure Diagnosis Pre-Procedure Diagnosis Gastric bleed by EGD, s/p gastric pull-up procedure and XRT for esophageal cancer. Angio +/- embolization requested by GI. Post-Procedure Diagnosis Post-Procedure Diagnosis No active GI bleed identified. No LGA identified. Large caliber inferior epigastric artery from GDA is only visualized artery perfusing stomach, which lies almost entirely within chest. Procedure Performed Procedure Performed Selective/superselective celiac angio with trans-microcatheter embolization of inferior epigastric artery with Gelfoam slurry Type of Anesthesia Type of Anesthesia Local + Mod sedation Estimated Blood Loss EBL: 25 cc Condition of Patient Condition of Patient Hemodynamically stable. No apparent complication. Disposition Disposition From IR return to 402 for recovery. F/u with GI and HIMS. Full report to follow. JOIE FARRELL MD August 08, 2016 17:19
[2016-08-08] MEDS: TAMSULOSIN 0.4 MG CAP.ER.24H. PO SCH (21:34)
--- NOTE | 2016-08-09 02:04 | ACF ---
Admission Forms Criteria GASTROINTESTINAL BLEEDING Clinical Indications for Inpatient Care (Place 'X' for any and all applicable criteria): Ongoing inpatient care may be indicated for gastrointestinal bleeding with ANY ONE of the following (4)(20)(21)(22)(23)(24): [X ]I. Active bleeding (eg, fresh voluminous blood in emesis or nasogastric aspirate, or per rectum) [ ]II. Hemodynamic instability [ ]III. Anticoagulation therapy or coagulopathy ((eg, advanced liver disease, irreversible anticoagulation) [ ]IV. Ischemic colitis (22) [ ]V. Endoscopy showing arterial bleeding, adherent clot, nonbleeding visible vessel, varices, flat red spots, ulcer size greater than 2 cm, or portal hypertensive gastropathy [ ]. High-risk low platelet count [ ]VII. Anemia requiring inpatient care as indicated by ANY ONE of the following a)[ ] Cognitive impairment b)[ ] Syncope c)[ ] Heart failure d)[ ] Chest pain e)[ ] Dyspnea f)[ ] Other findings suggesting inadequate perfusion (eg, peripheral or myocardial ischemia, end organ dysfunction) [ ]VIII. High-risk low platelet count [ ]IX. Suspected variceal cause of bleeding as indicated by ANY ONE of the following(27)(28): a)[ ] Known varices b)[ ] Hepatomegaly or splenomegaly c)[ ] Ascites d)[ ] Jaundice or scleral icterus e)[ ] History of liver disease (eg, cirrhosis) f)[ ] Physical findings of portal hypertension (eg, caput medusa) g)[ ] Comorbid disorder indicating risk for portal vein thrombosis (eg , abdominal surgery, sepsis, shock, exchange transfusion, prior umbilical vein catheterization) Extended stay may be needed until ALL of the following are present(20)(38)(47): [ ]a) Hemodynamic stability [ ]b) No evidence of active bleeding (eg, stable Hematocrit) [ ]c) Platelet count, prothrombin time, and partial thromboplastin time acceptable for next level of care [ ]d) Surgical or other acute intervention not needed [ ]e) Oral hydration and diet tolerated The original [employer]aint[employer] content created by Rod Clifford has been revised. The portions of the content which have been revised are identified through the use of italic text or in bold, and Rod Clifford has neither reviewed nor approved the modified material. All other unmodified content is copyright [facility]. Please see references footnoted in the original [facility] edition 2016 Admission Criteria Met?: Yes JOANA OLIVERA Aug 09, 2016 02:03
[2016-08-09 03:05] VITALS: BP 109/56
[2016-08-09 06:36] LABS: BASO % 0 % (0-3); EOS % 0 % (0-3); HEMATOCRIT 27.3 % (39.0-53.0); HEMOGLOBIN 8.7 g/dL (13.0-17.5); LYMPH # 0.7 x10^3/uL (1.0-4.8); LYMPH % 4 % (24-48); MEAN CORPUSCULAR HEMOGLOBIN 28 pg (25-35); MEAN CORPUSCULAR HGB CONC 32 g/dL (31-37); MEAN CORPUSCULAR VOLUME 89 fL (79-100); MONO % 8 % (0-9); NEUT % 88 % (31-73); PLATELET COUNT 219 x10^3/uL (140-400); RED BLOOD COUNT 3.07 x10^6/uL (4.30-5.70); RED CELL DISTRIBUTION WIDTH 14.2 % (11.5-14.5); WHITE BLOOD COUNT 15.9 x10^3/uL (4.0-11.0)
[2016-08-09 06:55] LABS: GFR 73.2; POTASSIUM 3.9 mmol/L (3.5-5.1)
[2016-08-09 07:15] VITALS: BP 113/57
--- NOTE | 2016-08-09 07:22 | RAD ---
Selective/superselective celiac arteriogram (celiac, GDA, and inferior epigastric artery injections) Trans-microcatheter embolization of inferior epigastric artery Indication: 75-year-old male with upper GI bleed, status post gastric pull-up procedure with XRT for esophageal cancer. EGD revealed unremarkable esophagus and unremarkable duodenum, with a large amount of blood within stomach, consistent with gastric GI bleed. Diagnostic angiography, with possible embolization, has been requested by GI. Fluoroscopy time: 25.4 minutes Kerma-area Product: 275 Gycm2 Contrast material: 91 cc Omnipaque 300 Anesthesia: The patient was appropriately monitored by a qualified independent observer throughout the time of moderate sedation. Consent: The procedure was explained in its entirety to the patient and/or the patient's designated district representative by a member of the treatment team. This included a discussion of risks and benefits and commonly accepted alternatives to the procedure, as well as expected consequences of no treatment at all. Discussion of risks included, but was not limited to, those that are most frequent and those that are rare, but possibly severe or life-threatening, as well as the possibility of unforeseen complications. Sterility: All elements of maximal sterile barrier technique, hand hygiene, skin preparation, and, if ultrasound was used, sterile ultrasound technique were followed. Procedure: Informed consent was obtained from the patient and his . He was placed supine on the angiography table. Preliminary ultrasound examination of right groin revealed wide patency of right common femoral artery, which was documented with a single hard copy ultrasound image. Right groin was then prepped and draped in the usual sterile fashion, utilizing all elements of maximal sterile barrier technique, as described above. Moderate sedation was provided with IV Versed and fentanyl. Using aseptic technique, local anesthesia, direct ultrasound guidance, and the micropuncture system, a 6 [place] Gold 2 sheath was successfully introduced. Celiac trunk injection: The 6 [place] Gold 2 sheath was advanced superiorly under fluoroscopic guidance, and was utilized to selectively cannulate celiac trunk. Omnipaque 300 was injected and DSA images were obtained over celiac distribution. Findings: Celiac trunk is widely patent. Left gastric artery was not identified. Of note, this vessel was large in caliber and was easily seen on a preoperative CT chest done 07/28/2010, but was not identified on a postoperative CTA chest done 05/21/2012. Splenic artery, common hepatic artery, proper hepatic artery, are widely patent. Gastroduodenal artery is also widely patent. Large caliber inferior epigastric artery arises from distal gastroduodenal artery, and extends superiorly to provide major perfusion to stomach, which predominantly lies within chest, right of midline. No extravasation of injected contrast material was demonstrated, to document active GI bleeding. Gastroduodenal artery injection: The 6 [place] Gold 2 sheath was then further advanced from celiac trunk into mid common hepatic artery. A 4 [place] angled glide catheter was then inserted through the Ancel sheath, and was utilized to selectively cannulate gastroduodenal artery. Omnipaque 300 was injected and DSA images were obtained. Findings: Gastroduodenal artery is tortuous, but widely patent. Areas of guidewire induced vasospasm were noted, and were successfully treated with direct intra-arterial nitroglycerin. Large caliber inferior epigastric artery arises from the gastroduodenal artery, is widely patent, and extends superiorly to provide perfusion to stomach, which predominantly lies within chest, right of midline, status post gastric pull-up procedure for esophageal cancer. No active extravasation of injected contrast material was demonstrated. Inferior epigastric artery injection: A 2.4 [place] ProGreat microcatheter was coaxially inserted through the angled glide catheter, previously positioned within gastroduodenal artery. The microcatheter was then successfully advanced over a Selerity GT microguidewire through gastroduodenal artery into proximal segment of large caliber inferior epigastric artery. Omnipaque 300 was hand injected and DSA images were obtained. Utilizing magnification fluoroscopic guidance, control contrast injections, and roadmapping technique, the microcatheter was then further advanced superiorly, deeply into inferior epigastric artery, to a level above jeana. Omnipaque 300 was again injected and DSA images were again obtained. Findings: Inferior epigastric artery, and multiple tiny side branches, are patent. There was no demonstration of active GI bleeding. No vascular malformation or hypervascular mass was seen. Trans-microcatheter Gelfoam embolization of inferior epigastric artery: Due to this patient's known gastric upper GI bleed, with absent visualization of left gastric artery, empirical embolization of inferior epigastric artery was considered reasonable. Using aseptic technique and magnification fluoroscopic guidance, "pull-back" Gelfoam embolization of inferior epigastric artery was carefully performed, beginning distally at the level of jeana, then terminating near diaphragmatic hiatus. The microcatheter was then withdrawn into proximal inferior epigastric artery. Omnipaque 300 was injected and completion DSA images were obtained. Those images revealed satisfactory embolization, with very sluggish flow within inferior epigastric artery, and with markedly diminished opacification of multiple previously present small side branches. Patient tolerated the procedure well without apparent complication. The microcatheter, angled glide catheter, and Gold sheath were removed and hemostasis was achieved at the right groin puncture site utilizing the Mynx closure system. Impression: 1. Successful, uneventful selective/superselective celiac arteriogram, as described. No extravasation of injected contrast material was demonstrated on any injection to document ongoing active GI bleeding. 2. Left gastric artery was not visualized angiographically. This vessel was easily identified and was large in caliber on pregastric pull-up CT images from 2010. However, left gastric artery was not identified on postoperative CT images from 2012. This suggests that left gastric artery was sacrificed during the surgical procedure. 3. Large caliber inferior epigastric artery arises from gastroduodenal artery, and provides major perfusion to stomach, which lies predominantly within chest, centered right of midline. Empirical trans-microcatheter Gelfoam embolization of inferior epigastric artery was then successfully and uneventfully performed, as described.
[2016-08-09] MEDS: fentaNYL PF VIAL 100 MCG/2 ML VIAL IV PRN ×3 (07:27→21:57)
--- NOTE | 2016-08-09 09:26 | PDOC ---
Subjective: Subjective: Right rib pain, 5/10 w/ pain meds. Some nausea attributed to pain. No bleeding. Reports normal-colored BM. Objective: Vital Signs: Vital Signs Date Time Temp Pulse Resp B/P (MAP) Pulse Ox O2 Delivery O2 Flow Rate FiO2 08/09/16 08:50 Room Air 08/09/16 07:15 101.1 98 18 113/57 (75) 97 101.1 08/09/16 06:42 95.0 Labs: Laboratory Tests Test 08/09/16 05:40 White Blood Count 15.9 x10^3/uL Red Blood Count 3.07 x10^6/uL Hemoglobin 8.7 g/dL Hematocrit 27.3 % Mean Corpuscular Volume 89 fL Mean Corpuscular Hemoglobin 28 pg Mean Corpuscular Hemoglobin Concent 32 g/dL Red Cell Distribution Width 14.2 % Platelet Count 219 x10^3/uL Neutrophils (%) (Auto) 88 % Lymphocytes (%) (Auto) 4 % Monocytes (%) (Auto) 8 % Eosinophils (%) (Auto) 0 % Basophils (%) (Auto) 0 % Neutrophils # (Auto) 14.0 x10^3uL Lymphocytes # (Auto) 0.7 x10^3/uL Monocytes # (Auto) 1.2 x10^3/uL Eosinophils # (Auto) 0.0 x10^3/uL Basophils # (Auto) 0.0 x10^3/uL Sodium Level 143 mmol/L Potassium Level 3.9 mmol/L Chloride Level 107 mmol/L Carbon Dioxide Level 28 mmol/L Anion Gap 8 Blood Urea Nitrogen 36 mg/dL Creatinine 1.0 mg/dL Estimated GFR (Cockcroft-Gault) 73.2 Glucose Level 138 mg/dL Calcium Level 8.0 mg/dL Imaging: EGD 08/08/16: normal esophagus s/p pull through with ge junction at 30 cm and clear GE junction without varices, normal duodenum without ulcer or retained blood after washing, adherent clot less er [id number] base. IR procedure 08/08/16: No active GI bleed identified, no LGA identified, large caliber inferior epigastric artery from GDA is only visualized artery perfusing stomach, which lies almost entirely within chest. Selective/superselective celiac angio with trans-microcatheter embolization of inferior epigastric artery with Gelfoam slurry. PE: GEN: NAD LUNGS: clear HEART: tachy ABD: right-sided discomfort toward RLQ, although mostly right ribs/flank NEURO/PSYCH: A & O 3 A/P: Hematemesis - no recurrence -s/p EGD w/ adherent clot, IR embol of inferior gastric artery Right-sided pain -ribs, flank, some abdomen Anemia -Hgb from 11.2 to 8.7, BUN better Leukocytosis, fever, tachycardia H/o esophageal cancer s/p gastric pull-up, chemo/rad CRC screen -reports diverticulosis on colonoscopy last year w/ Dr. Celaya -- D/w Dr. Jaimes. Continue to monitor. Fever possibly 2/2 embolization. Keep to ice chips for now. KRISTIN REDMOND Aug 09, 2016 09:26
[2016-08-09] MEDS ORDERED: IOHEXOL 300 MG/ML 75 ML VIAL IV ONE (09:45)
[2016-08-09] MEDS: PANTOPRAZOLE IV PUSH 40 MG VIAL. IVP SCH (09:50)
[2016-08-09] MEDS: ACETAMINOPHEN 325 MG TABLET. PO PRN (09:51)
[2016-08-09] MEDS: IV NORMAL SALINE 1000ML BAG 1,000 ML IV SCH ×2 (09:52→21:17)
[2016-08-09] MEDS: HYDROcodone/APAP 5/325MG 1 TAB TABLET PO PRN ×2 (10:53→18:20)
[2016-08-09 11:13] VITALS: BP 103/58
--- NOTE | 2016-08-09 11:20 | RAD ---
Indication abdominal pain, fever. Axial images through the abdomen and pelvis were obtained. IV contrast, approximately 75 cc of Omnipaque 300 was administered intravenously. No oral contrast was administered. Note is made of a previous examination 02/24/2015. There is a small nodule in the right middle lobe similar to an examination 02/18/2015. There is some volume loss in the right lower lobe which may reflect atelectasis or pneumonia. This volume loss does appear to be new relative to the exam 02/25/2015. Changes of a gastric pull-up are noted. The liver and spleen appear unremarkable. Clips are noted in the gallbladder fossa. The pancreas adrenal glands and kidneys are unremarkable. There is a 1 cm mass in the left kidney compatible with a cyst. Inflammatory process or acute finding in the abdomen is not seen. In the pelvis occasional diverticula are seen associated with the sigmoid colon. There are suggested mild inflammatory changes extending over approximately a 8 to 10 cm segment involving the sigmoid colon and junction of the descending and sigmoid colon. Mild diverticulitis or focal colitis in this area is not excluded. An underlying mass is not seen but if colonoscopy has not been recently performed this should be considered. The prostate is moderately enlarged. IMPRESSION: Volume loss compatible with atelectasis or pneumonia at the right lung base. Probable mild diverticulitis or focal colitis extending over several centimeters at the junction of the descending and sigmoid colon. If colonoscopy has not been recently performed this should be considered. Enlarged prostate
--- NOTE | 2016-08-09 11:48 | PDOC ---
PROGRESS NOTES Chief Complaint Chief Complaint 1. Hematemesis -s/p EGD w/ adherent clot, IR embol of inferior gastric artery 2. Acute blood loss anemia, possible on top of chronic anemia of hx malignancy 3. esophageal cancer s/p gastric pull up w/ chemo/radiation, MO, CAD s/p stent, COPD, HLD, partial thyroidectomy, cholecystectomy, PEG tube placement/removal History of Present Illness History of Present Illness ABd pain today, RUQ area, needing IV pain meds Was severely nauseated this AM, no emesis Fevers 101 temp this AM SInus tachy WBC 15 (lower) from 18 HGb dropped to 8 from 11 Platelets ok PLAn: Stat CT abd pelvis with IV contrast (crea ok) HH again nick (dropped today) NPO for now, or liquid diet (nauseated) keep IVF NAusea meds Tylenol for fever MOnitor fevers BC if persists MAy check UA - await CT results Dw RN Vitals Vitals Vital Signs Date Time Temp Pulse Resp B/P (MAP) Pulse Ox O2 Delivery O2 Flow Rate FiO2 08/09/16 11:13 99.5 117 20 103/58 (73) 94 Room Air 99.5 08/09/16 08:00 97.0 Physical Exam General: Alert, Oriented X3, Cooperative, No acute distress Abdomen: Normal bowel sounds, Soft, No tenderness, No hepatosplenomegaly, No masses Extremities: No clubbing, No cyanosis, No edema, Normal pulses, No tenderness/ swelling Skin: No rashes, No breakdown, No significant lesion Labs LABS Laboratory Tests Test 08/09/16 05:40 White Blood Count 15.9 x10^3/uL (4.0-11.0) Red Blood Count 3.07 x10^6/uL (4.30-5.70) Hemoglobin 8.7 g/dL (13.0-17.5) Hematocrit 27.3 % (39.0-53.0) Mean Corpuscular Volume 89 fL (79-100) Mean Corpuscular Hemoglobin 28 pg (25-35) Mean Corpuscular Hemoglobin Concent 32 g/dL (31-37) Red Cell Distribution Width 14.2 % (11.5-14.5) Platelet Count 219 x10^3/uL (140-400) Neutrophils (%) (Auto) 88 % (31-73) Lymphocytes (%) (Auto) 4 % (24-48) Monocytes (%) (Auto) 8 % (0-9) Eosinophils (%) (Auto) 0 % (0-3) Basophils (%) (Auto) 0 % (0-3) Neutrophils # (Auto) 14.0 x10^3uL (1.8-7.7) Lymphocytes # (Auto) 0.7 x10^3/uL (1.0-4.8) Monocytes # (Auto) 1.2 x10^3/uL (0.0-1.1) Eosinophils # (Auto) 0.0 x10^3/uL (0.0-0.7) Basophils # (Auto) 0.0 x10^3/uL (0.0-0.2) Sodium Level 143 mmol/L (136-145) Potassium Level 3.9 mmol/L (3.5-5.1) Chloride Level 107 mmol/L (98-107) Carbon Dioxide Level 28 mmol/L (21-32) Anion Gap 8 (6-14) Blood Urea Nitrogen 36 mg/dL (8-26) Creatinine 1.0 mg/dL (0.7-1.3) Estimated GFR (Cockcroft-Gault) 73.2 Glucose Level 138 mg/dL (70-99) Calcium Level 8.0 mg/dL (8.5-10.1) Review of Systems Review of Systems abd pain, nausea, no emesis, no diarrhea, RUQ /rib pain Assessment and Plan Assessmemt and Plan Problems Medical Problems: (1) Acute GI bleeding Status: Acute (2) History of esophageal cancer Status: Acute (3) Hyperglycemia Status: Acute (4) Mild protein malnutrition Status: Acute (5) Peptic ulcer disease Status: Acute Problems: Comment Review of Relevant I have reviewed the following items indigo (where applicable) has been applied. Labs Laboratory Tests Test 08/08/16 01:20 08/09/16 05:40 White Blood Count 18.0 x10^3/uL (4.0-11.0) 15.9 x10^3/uL (4.0-11.0) Red Blood Count 3.95 x10^6/uL (4.30-5.70) 3.07 x10^6/uL (4.30-5.70) Hemoglobin 11.2 g/dL (13.0-17.5) 8.7 g/dL (13.0-17.5) Hematocrit 35.1 % (39.0-53.0) 27.3 % (39.0-53.0) Mean Corpuscular Volume 89 fL (79-100) 89 fL (79-100) Mean Corpuscular Hemoglobin 28 pg (25-35) 28 pg (25-35) Mean Corpuscular Hemoglobin Concent 32 g/dL (31-37) 32 g/dL (31-37) Red Cell Distribution Width 13.7 % (11.5-14.5) 14.2 % (11.5-14.5) Platelet Count 281 x10^3/uL (140-400) 219 x10^3/uL (140-400) Neutrophils (%) (Auto) 86 % (31-73) 88 % (31-73) Lymphocytes (%) (Auto) 8 % (24-48) 4 % (24-48) Monocytes (%) (Auto) 5 % (0-9) 8 % (0-9) Eosinophils (%) (Auto) 1 % (0-3) 0 % (0-3) Basophils (%) (Auto) 0 % (0-3) 0 % (0-3) Neutrophils # (Auto) 15.4 x10^3uL (1.8-7.7) 14.0 x10^3uL (1.8-7.7) Lymphocytes # (Auto) 1.5 x10^3/uL (1.0-4.8) 0.7 x10^3/uL (1.0-4.8) Monocytes # (Auto) 0.9 x10^3/uL (0.0-1.1) 1.2 x10^3/uL (0.0-1.1) Eosinophils # (Auto) 0.1 x10^3/uL (0.0-0.7) 0.0 x10^3/uL (0.0-0.7) Basophils # (Auto) 0.0 x10^3/uL (0.0-0.2) 0.0 x10^3/uL (0.0-0.2) Segmented Neutrophils % 85 % (35-66) Band Neutrophils % 1 % (0-9) Lymphocytes % 11 % (24-48) Monocytes % 2 % (0-10) Metamyelocytes % 1 % (0-0) Platelet Estimate Adequate (ADEQUATE) Prothrombin Time 14.0 SEC (11.7-14.0) Prothromb Time International Ratio 1.2 (0.8-1.1) Activated Partial Thromboplast Time 30 SEC (24-38) Sodium Level 142 mmol/L (136-145) 143 mmol/L (136-145) Potassium Level 4.4 mmol/L (3.5-5.1) 3.9 mmol/L (3.5-5.1) Chloride Level 103 mmol/L (98-107) 107 mmol/L (98-107) Carbon Dioxide Level 31 mmol/L (21-32) 28 mmol/L (21-32) Anion Gap 8 (6-14) 8 (6-14) Blood Urea Nitrogen 44 mg/dL (8-26) 36 mg/dL (8-26) Creatinine 1.2 mg/dL (0.7-1.3) 1.0 mg/dL (0.7-1.3) Estimated GFR (Cockcroft-Gault) 59.3 73.2 BUN/Creatinine Ratio 37 (6-20) Glucose Level 211 mg/dL (70-99) 138 mg/dL (70-99) Calcium Level 8.7 mg/dL (8.5-10.1) 8.0 mg/dL (8.5-10.1) Total Bilirubin 0.3 mg/dL (0.2-1.0) Aspartate Amino Transf (AST/SGOT) 14 U/L (15-37) Alanine Aminotransferase (ALT/SGPT) 17 U/L (16-63) Alkaline Phosphatase 77 U/L (46-116) Total Protein 7.0 g/dL (6.4-8.2) Albumin 3.2 g/dL (3.4-5.0) Albumin/Globulin Ratio 0.8 (1.0-1.7) Lipase 141 U/L (73-393) Laboratory Tests Test 08/09/16 05:40 White Blood Count 15.9 x10^3/uL (4.0-11.0) Red Blood Count 3.07 x10^6/uL (4.30-5.70) Hemoglobin 8.7 g/dL (13.0-17.5) Hematocrit 27.3 % (39.0-53.0) Mean Corpuscular Volume 89 fL (79-100) Mean Corpuscular Hemoglobin 28 pg (25-35) Mean Corpuscular Hemoglobin Concent 32 g/dL (31-37) Red Cell Distribution Width 14.2 % (11.5-14.5) Platelet Count 219 x10^3/uL (140-400) Neutrophils (%) (Auto) 88 % (31-73) Lymphocytes (%) (Auto) 4 % (24-48) Monocytes (%) (Auto) 8 % (0-9) Eosinophils (%) (Auto) 0 % (0-3) Basophils (%) (Auto) 0 % (0-3) Neutrophils # (Auto) 14.0 x10^3uL (1.8-7.7) Lymphocytes # (Auto) 0.7 x10^3/uL (1.0-4.8) Monocytes # (Auto) 1.2 x10^3/uL (0.0-1.1) Eosinophils # (Auto) 0.0 x10^3/uL (0.0-0.7) Basophils # (Auto) 0.0 x10^3/uL (0.0-0.2) Sodium Level 143 mmol/L (136-145) Potassium Level 3.9 mmol/L (3.5-5.1) Chloride Level 107 mmol/L (98-107) Carbon Dioxide Level 28 mmol/L (21-32) Anion Gap 8 (6-14) Blood Urea Nitrogen 36 mg/dL (8-26) Creatinine 1.0 mg/dL (0.7-1.3) Estimated GFR (Cockcroft-Gault) 73.2 Glucose Level 138 mg/dL (70-99) Calcium Level 8.0 mg/dL (8.5-10.1) Medications Current Medications Fentanyl Citrate (Fentanyl 2ml Vial) 50 mcg PRN Q15MIN PRN IV PAIN GREATER THAN 3/10; Start 08/08/16 at 02:00; Stop 08/08/16 at 05:00; Status DC Sodium Chloride 1,000 ml @ 1,000 mls/hr Q1H IV Last administered on 08/08/16t 02:19; Start 08/08/16 at 02:15; Stop 08/08/16 at 03:14; Status DC Ondansetron HCl (Zofran) 4 mg 1X ONCE IV Last administered on 08/08/16 02:18 ; Start 08/08/16 at 02:15; Stop 08/08/16 at 02:16; Status DC Pantoprazole Sodium (Protonix Vial) 40 mg 1X ONCE IVP Last administered on 02:18; Start 08/08/16 at 02:15; Stop 08/08/16 at 02:16; Status DC Ondansetron HCl (Zofran) 4 mg PRN Q8HRS PRN IV NAUSEA/VOMITING; Start 08/08/16 at 03:30; Stop 08/08/16 at 09:38; Status DC Fentanyl Citrate (Fentanyl 2ml Vial) 50 mcg PRN Q2HR PRN IV SEVERE PAIN Last administered on 08/09/16 02:58; Start 08/08/16 at 03:30; Stop 08/09/16 at 03:29; Status DC Sodium Chloride 1,000 ml @ 100 mls/hr Q10H IV Last administered on 08/08/16 18:25; Start 08/08/16 at 03:26; Stop 08/09/16 at 03:25; Status DC Pantoprazole Sodium 80 mg/ Sodium Chloride 100 ml @ 10 mls/hr Q10H IV Last administered on 08/08/16 16:38; Start 08/08/16 at 03:30; Stop 08/09/16 at 03:29 ; Status DC Ondansetron HCl (Zofran) 4 mg PRN Q6HRS PRN IV NAUSEA/VOMITING; Start 08/08/16 at 09:36; Stop 08/09/16 at 09:35; Status DC Midazolam HCl (Versed) 2 mg PRN 1X PRN IV PRIOR TO PROCEDURE; Start 08/08/16 at 12:45; Stop 08/08/16 at 18:00; Status DC Fentanyl Citrate (Fentanyl 2ml Vial) 25 mcg PRN Q5MIN PRN IV X 2 DOSES FOR PAIN ; Start 08/08/16 at 12:45; Stop 08/08/16 at 18:00; Status DC Fentanyl Citrate (Fentanyl 2ml Vial) 50 mcg PRN Q5MIN PRN IV X 2 DOSES FOR PAIN ; Start 08/08/16 at 12:45; Stop 08/08/16 at 18:00; Status DC Ringer's Solution 1,000 ml @ 125 mls/hr Q8H IV Last administered on 08/08/16t 12:52; Start 08/08/16 at 12:45; Stop 08/09/16 at 00:44; Status DC Lidocaine HCl 2 ml 1X PRN PRN ID IV START; Start 08/08/16 at 12:45; Stop at 18:00; Status DC Propofol 20 ml @ As Directed STK-MED ONCE IV ; Start 08/08/16 at 13:17; Stop at 13:18; Status DC Lidocaine HCl (Lidocaine Pf 2% Vial) 5 ml STK-MED ONCE .ROUTE ; Start 08/08/16 at 13:17; Stop 08/08/16 at 13:18; Status DC Propofol 20 ml @ As Directed STK-MED ONCE IV ; Start 08/08/16 at 13:41; Stop at 13:42; Status DC Iohexol (Omnipaque 300 Mg/ml) 100 ml STK-MED ONCE .ROUTE ; Start 08/08/16 at 14: 46; Stop 08/08/16 at 14:47; Status DC Lidocaine/Sodium Bicarbonate (Buffered Lidocaine 1%) 20 ml STK-MED ONCE IJ ; Start 08/08/16 at 14:47; Stop 08/08/16 at 14:48; Status DC Heparin Sodium/ Sodium Chloride 1,500 ml @ As Directed STK-MED ONCE .ROUTE ; Start 08/08/16 at 14:47; Stop 08/08/16 at 14:48; Status DC Midazolam HCl (Versed) 5 mg STK-MED ONCE .ROUTE ; Start 08/08/16 at 15:31; Stop 08/08/16 at 15:32; Status DC Fentanyl Citrate (Fentanyl 5ml Vial) 250 mcg STK-MED ONCE .ROUTE ; Start at 15:31; Stop 08/08/16 at 15:32; Status DC Nitroglycerin (Nitroglycerin) 200 mcg 1X ONCE IART Last administered on t 17:03; Start 08/08/16 at 16:00; Stop 08/08/16 at 16:03; Status DC Heparin Sodium/ Sodium Chloride 1,000 unit 1X ONCE IART Last administered on 17:03; Start 08/08/16 at 16:00; Stop 08/08/16 at 16:03; Status DC Lidocaine/Sodium Bicarbonate (Buffered Lidocaine 1%) 20 ml 1X ONCE IJ Last administered on 08/08/16 17:04; Start 08/08/16 at 16:00; Stop 08/08/16 at 16:03 ; Status DC Midazolam HCl (Versed) 5 mg 1X ONCE IV Last administered on 08/08/16 17:04; Start 08/08/16 at 16:00; Stop 08/08/16 at 16:03; Status DC Fentanyl Citrate (Fentanyl 5ml Vial) 250 mcg 1X ONCE IV Last administered on 17:04; Start 08/08/16 at 16:00; Stop 08/08/16 at 16:03; Status DC Iohexol (Omnipaque 300 Mg/ml) 100 ml 1X ONCE IART Last administered on 17:03; Start 08/08/16 at 16:00; Stop 08/08/16 at 16:03; Status DC Info (Do NOT chart on this entry -- for MONITORING) 1 each PRN DAILY PRN MC SEE COMMENTS; Start 08/08/16 at 16:15; Stop 08/10/16 at 16:14 Gelatin (Gelfoam Size 12-7mm) 1 each STK-MED ONCE .ROUTE ; Start 08/08/16 at 16 :20; Stop 08/08/16 at 16:21; Status DC Tamsulosin HCl (Flomax) 0.4 mg QHS PO Last administered on 08/08/16 21:34; Start 08/08/16 at 21:30 Fentanyl Citrate (Fentanyl 2ml Vial) 50 mcg PRN Q2HR PRN IV PAIN Last administered on 08/09/16 07:27; Start 08/09/16 at 07:15 Acetaminophen/ Hydrocodone Bitart (Lortab 5/325) 1 tab PRN Q6HRS PRN PO PAIN Last administered on 08/09/16 10:53; Start 08/09/16 at 07:15 Pantoprazole Sodium (Protonix Vial) 40 mg DAILYAC IVP Last administered on 09:50; Start 08/09/16 at 10:00 Sodium Chloride 1,000 ml @ 100 mls/hr Q10H IV Last administered on 08/09/16 09 :52; Start 08/09/16 at 09:45 Acetaminophen (Tylenol) 650 mg PRN Q6HRS PRN PO temp Last administered on 09:51; Start 08/09/16 at 09:45 Iohexol (Omnipaque 300 Mg/ml) 75 ml 1X ONCE IV Last administered on 08/09/16 10:13; Start 08/09/16 at 09:45; Stop 08/09/16 at 09:47; Status DC Active Scripts Active Pantoprazole Sodium 40 Mg Tablet.dr 40 Mg PO BID Reported Metamucil (Psyllium Husk) 0.52 Gm Capsule 0.52 Gm PO PRN DAILY PRN Hydrochlorothiazide Tablet (Hydrochlorothiazide) 12.5 Mg Tablet 25 Mg PO DAILY Aspir 81 (Aspirin) 81 Mg Tablet.dr 1 Tab PO DAILY Maalox Maximum Strength Susp (Mag Hydrox/Al Hydrox/Simeth) 355 Ml Oral.susp 355 Ml PO DAILY Omeprazole 20 Mg Capsule.dr 1 Cap PO DAILYWSUP Potassium Chloride 10 Meq Tab.er.prt 10 Meq PO DAILY Tamsulosin Hcl 0.4 Mg Cap.er.24h 0.4 Mg PO B-12 (Cyanocobalamin (Vitamin B-12)) 1,000 Mcg Tablet.er 1,000 Mcg PO Metoprolol Tartrate 25 Mg Tablet 25 Mg PO BID Magnesium (Magnesium Oxide) 400 Mg Capsule 400 Mg PO Folic Acid 0.8 Mg Tablet 0.8 Mg PO D3 + K2 Dots 1,000 Units Tab (Vitamin D3/Vitamin K2) 1 Each Tab.rapdis 1 Each PO Simvastatin 40 Mg Tablet 40 Mg PO QHS Nitrostat (Nitroglycerin) 0.4 Mg Tab.subl 0.4 Mg SL Vitals/I & O Vital Sign - Last 24 Hours 08/08/16 08/08/16 08/08/16 08/08/16 12:49 12:50 13:50 14:04 Temp 98.8 98.5 98.8 98.5 Pulse 90 84 83 Resp 20 16 20 B/P (MAP) 106/64 118/72 Pulse Ox 97 98 100 O2 Delivery Room Air Room Air Room Air 508/08/16 08/08/16 08/08/16 14:15 14:57 16:55 17:04 Temp 98.7 98.7 Pulse 82 82 80 Resp 20 18 14 15 B/P (MAP) 117/69 111/63 (79) Pulse Ox 100 98 100 100 O2 Delivery Room Air Room Air Room Air 08/08/16 08/08/16 08/08/16 08/08/16 17:15 17:30 17:45 18:00 Temp 97.9 97.9 Pulse 80 78 80 Resp 18 16 16 B/P (MAP) 103/54 (70) 106/50 (68) 102/63 (76) 110/60 (77) Pulse Ox 99 98 99 O2 Delivery Room Air Room Air Room Air 08/08/16 08/08/16 08/08/16 08/08/16 18:01 18:30 19:00 20:00 Temp 97.4 97.4 Pulse 77 85 89 Resp 18 18 18 B/P (MAP) 109/55 (73) 118/59 (78) 117/65 (82) Pulse Ox 98 95 98 O2 Delivery Room Air Room Air Room Air Room Air 08/08/16 08/09/16 08/09/16 08/09/16 23:04 02:58 03:05 05:21 Pulse 89 77 Resp 18 18 18 B/P (MAP) 98/50 (66) 109/56 (73) Pulse Ox 98 98 O2 Delivery Room Air Room Air Room Air Room Air 08/09/16 08/09/16 08/09/16 08/09/16 06:42 07:15 07:27 08:00 Temp 101.1 101.1 Pulse 98 Resp 18 B/P (MAP) 113/57 (75) Pulse Ox 97 O2 Delivery Room Air Room Air Room Air Room Air O2 Flow Rate 95.0 97.0 08/09/16 08/09/16 08/09/16 08:50 10:53 11:13 Temp 99.5 99.5 Pulse 117 Resp 20 B/P (MAP) 103/58 (73) Pulse Ox 94 O2 Delivery Room Air Room Air Room Air Intake and Output 08/08/16 08/08/16 08/09/16 15:00 23:00 07:00 Intake Total 650 ml 867 ml 0 ml Output Total 600 ml 975 ml Balance 50 ml -108 ml 0 ml JAMES ARRIAGA MD Aug 09, 2016 11:48
[2016-08-09 15:04] VITALS: BP 109/64
[2016-08-09 19:15] VITALS: BP 102/64
[2016-08-09] MEDS: TAMSULOSIN 0.4 MG CAP.ER.24H. PO SCH (21:15)
[2016-08-09 22:59] VITALS: BP 105/65
[2016-08-10] MEDS: HYDROcodone/APAP 5/325MG 1 TAB TABLET PO PRN ×4 (00:15→20:52)
[2016-08-10] MEDS: fentaNYL PF VIAL 100 MCG/2 ML VIAL IV PRN ×3 (00:16→08:30)
[2016-08-10 03:16] VITALS: BP 102/63
[2016-08-10 04:43] LABS: BASO % 0 % (0-3); EOS % 0 % (0-3); HEMATOCRIT 22.3 % (39.0-53.0); HEMOGLOBIN 7.2 g/dL (13.0-17.5); LYMPH # 0.8 x10^3/uL (1.0-4.8); LYMPH % 4 % (24-48); MEAN CORPUSCULAR HEMOGLOBIN 29 pg (25-35); MEAN CORPUSCULAR HGB CONC 32 g/dL (31-37); MEAN CORPUSCULAR VOLUME 88 fL (79-100); MONO % 12 % (0-9); NEUT % 84 % (31-73); PLATELET COUNT 187 x10^3/uL (140-400); RED BLOOD COUNT 2.53 x10^6/uL (4.30-5.70); RED CELL DISTRIBUTION WIDTH 14.3 % (11.5-14.5); WHITE BLOOD COUNT 18.5 x10^3/uL (4.0-11.0)
[2016-08-10 04:53] LABS: GFR 73.2; POTASSIUM 4.1 mmol/L (3.5-5.1)
[2016-08-10 07:00] VITALS: BP 95/54
[2016-08-10] MEDS: IV NORMAL SALINE 1000ML BAG 1,000 ML IV SCH ×3 (08:23→20:52)
[2016-08-10] MEDS: TAMSULOSIN 0.4 MG CAP.ER.24H. PO SCH ×2 (08:24→20:51)
[2016-08-10] MEDS: PANTOPRAZOLE IV PUSH 40 MG VIAL. IVP SCH (08:24)
--- NOTE | 2016-08-10 10:38 | PDOC ---
Subjective: Subjective: Less pain today, now mostly felt w/ hiccups. No bleeding or stools. Would like to try diet. Objective: Objective: Tmax 99.5. Started on Levaquin. Note ID consult. Vital Signs: Vital Signs Date Time Temp Pulse Resp B/P (MAP) Pulse Ox O2 Delivery O2 Flow Rate FiO2 08/10/16 08:30 Room Air 08/10/16 07:00 97.7 87 20 95/54 (68) 94 97.7 08/09/16 08:00 97.0 Labs: Laboratory Tests Test 08/10/16 04:11 White Blood Count 18.5 x10^3/uL Red Blood Count 2.53 x10^6/uL Hemoglobin 7.2 g/dL Hematocrit 22.3 % Mean Corpuscular Volume 88 fL Mean Corpuscular Hemoglobin 29 pg Mean Corpuscular Hemoglobin Concent 32 g/dL Red Cell Distribution Width 14.3 % Platelet Count 187 x10^3/uL Neutrophils (%) (Auto) 84 % Lymphocytes (%) (Auto) 4 % Monocytes (%) (Auto) 12 % Eosinophils (%) (Auto) 0 % Basophils (%) (Auto) 0 % Neutrophils # (Auto) 15.5 x10^3uL Lymphocytes # (Auto) 0.8 x10^3/uL Monocytes # (Auto) 2.2 x10^3/uL Eosinophils # (Auto) 0.0 x10^3/uL Basophils # (Auto) 0.0 x10^3/uL Sodium Level 140 mmol/L Potassium Level 4.1 mmol/L Chloride Level 106 mmol/L Carbon Dioxide Level 28 mmol/L Anion Gap 6 Blood Urea Nitrogen 26 mg/dL Creatinine 1.0 mg/dL Estimated GFR (Cockcroft-Gault) 73.2 Glucose Level 128 mg/dL Calcium Level 8.0 mg/dL Imaging: CT A/P 08/09/16 IMPRESSION: Volume loss compatible with atelectasis or pneumonia at the right lung base. Probable mild diverticulitis or focal colitis extending over several centimeters at the junction of the descending and sigmoid colon. If colonoscopy has not been recently performed this should be considered. Enlarged prostate PE: GEN: looks better, more comfortable LUNGS: clear HEART: RRR ABD: non-tender NEURO/PSYCH: A & O 3 A/P: Hematemesis - no recurrence -s/p EGD w/ adherent clot, IR embol of inferior gastric artery Right-sided pain - improved Abnormal CT -right atelectasis vs pneumonia, diverticulitis/colitis left colon -no SOA or diarrhea Anemia -Hgb from 11.2 to 8.7 to 7.2, BUN now normal -had colonoscopy last year w/ Dr. Celaya, h/o diverticulosis Leukocytosis - worse Fever, tachycardia - better H/o esophageal cancer s/p gastric pull-up, chemo/rad -- Clinically better today. Hgb and WBC worse. Continue same for now, Dr. Varner to see later. KRISTIN REDMOND Aug 10, 2016 10:38
[2016-08-10 11:00] VITALS: BP 97/47
--- NOTE | 2016-08-10 13:12 | PDOC ---
PROGRESS NOTES Chief Complaint Chief Complaint 1. Hematemesis -s/p EGD w/ adherent clot, IR embol of inferior gastric artery 2. Acute blood loss anemia, possible on top of chronic anemia of hx malignancy 3. esophageal cancer s/p gastric pull up w/ chemo/radiation, AK, CAD s/p stent, COPD, HLD, partial thyroidectomy, cholecystectomy, PEG tube placement/removal 4. FEVERS, LEUKOCYTOSIS, R rib pain History of Present Illness History of Present Illness WBC 18 Low grade temps persist Was higher temp few days ago COughing actually better CT shows possible pNA or atelectasis on R side COlitis/diverticulitis on CT HGb dropping down to 7 now from 11 on admit Pt denies active BS CTs can results provided to dtr PLAN: Recheckl hgb at 2 PM Keep NPO per GI INvolve ID given persistent temps and WBC 18 despite me starting IV levaquin few days ago BC now - ordered this AM Dw dtr and pt CBC nick Trial of lidoderm patch to R rib pain, could be from PNA too Vitals Vitals Vital Signs Date Time Temp Pulse Resp B/P (MAP) Pulse Ox O2 Delivery O2 Flow Rate FiO2 08/10/16 12:26 Room Air 08/10/16 11:00 97.5 91 20 97/47 (64) 94 97.5 08/09/16 08:00 97.0 Physical Exam General: Alert, Oriented X3, Cooperative, No acute distress Heart: Regular rate Lungs: Clear Abdomen: Normal bowel sounds, Soft, No tenderness, No hepatosplenomegaly, No masses Extremities: No clubbing, No cyanosis, No edema, Normal pulses, No tenderness/ swelling Skin: No rashes, No breakdown, No significant lesion Labs LABS Laboratory Tests Test 08/10/16 04:11 White Blood Count 18.5 x10^3/uL (4.0-11.0) Red Blood Count 2.53 x10^6/uL (4.30-5.70) Hemoglobin 7.2 g/dL (13.0-17.5) Hematocrit 22.3 % (39.0-53.0) Mean Corpuscular Volume 88 fL (79-100) Mean Corpuscular Hemoglobin 29 pg (25-35) Mean Corpuscular Hemoglobin Concent 32 g/dL (31-37) Red Cell Distribution Width 14.3 % (11.5-14.5) Platelet Count 187 x10^3/uL (140-400) Neutrophils (%) (Auto) 84 % (31-73) Lymphocytes (%) (Auto) 4 % (24-48) Monocytes (%) (Auto) 12 % (0-9) Eosinophils (%) (Auto) 0 % (0-3) Basophils (%) (Auto) 0 % (0-3) Neutrophils # (Auto) 15.5 x10^3uL (1.8-7.7) Lymphocytes # (Auto) 0.8 x10^3/uL (1.0-4.8) Monocytes # (Auto) 2.2 x10^3/uL (0.0-1.1) Eosinophils # (Auto) 0.0 x10^3/uL (0.0-0.7) Basophils # (Auto) 0.0 x10^3/uL (0.0-0.2) Sodium Level 140 mmol/L (136-145) Potassium Level 4.1 mmol/L (3.5-5.1) Chloride Level 106 mmol/L (98-107) Carbon Dioxide Level 28 mmol/L (21-32) Anion Gap 6 (6-14) Blood Urea Nitrogen 26 mg/dL (8-26) Creatinine 1.0 mg/dL (0.7-1.3) Estimated GFR (Cockcroft-Gault) 73.2 Glucose Level 128 mg/dL (70-99) Calcium Level 8.0 mg/dL (8.5-10.1) Review of Systems Review of Systems R rib pain, no cough soa, cp, abd pain or bloody bm Assessment and Plan Assessmemt and Plan Problems Medical Problems: (1) Acute GI bleeding Status: Acute (2) History of esophageal cancer Status: Acute (3) Hyperglycemia Status: Acute (4) Mild protein malnutrition Status: Acute (5) Peptic ulcer disease Status: Acute Problems: Comment Review of Relevant I have reviewed the following items indigo (where applicable) has been applied. Labs Laboratory Tests Test 08/09/16 05:40 08/10/16 04:11 White Blood Count 15.9 x10^3/uL (4.0-11.0) 18.5 x10^3/uL (4.0-11.0) Red Blood Count 3.07 x10^6/uL (4.30-5.70) 2.53 x10^6/uL (4.30-5.70) Hemoglobin 8.7 g/dL (13.0-17.5) 7.2 g/dL (13.0-17.5) Hematocrit 27.3 % (39.0-53.0) 22.3 % (39.0-53.0) Mean Corpuscular Volume 89 fL (79-100) 88 fL (79-100) Mean Corpuscular Hemoglobin 28 pg (25-35) 29 pg (25-35) Mean Corpuscular Hemoglobin Concent 32 g/dL (31-37) 32 g/dL (31-37) Red Cell Distribution Width 14.2 % (11.5-14.5) 14.3 % (11.5-14.5) Platelet Count 219 x10^3/uL (140-400) 187 x10^3/uL (140-400) Neutrophils (%) (Auto) 88 % (31-73) 84 % (31-73) Lymphocytes (%) (Auto) 4 % (24-48) 4 % (24-48) Monocytes (%) (Auto) 8 % (0-9) 12 % (0-9) Eosinophils (%) (Auto) 0 % (0-3) 0 % (0-3) Basophils (%) (Auto) 0 % (0-3) 0 % (0-3) Neutrophils # (Auto) 14.0 x10^3uL (1.8-7.7) 15.5 x10^3uL (1.8-7.7) Lymphocytes # (Auto) 0.7 x10^3/uL (1.0-4.8) 0.8 x10^3/uL (1.0-4.8) Monocytes # (Auto) 1.2 x10^3/uL (0.0-1.1) 2.2 x10^3/uL (0.0-1.1) Eosinophils # (Auto) 0.0 x10^3/uL (0.0-0.7) 0.0 x10^3/uL (0.0-0.7) Basophils # (Auto) 0.0 x10^3/uL (0.0-0.2) 0.0 x10^3/uL (0.0-0.2) Sodium Level 143 mmol/L (136-145) 140 mmol/L (136-145) Potassium Level 3.9 mmol/L (3.5-5.1) 4.1 mmol/L (3.5-5.1) Chloride Level 107 mmol/L (98-107) 106 mmol/L (98-107) Carbon Dioxide Level 28 mmol/L (21-32) 28 mmol/L (21-32) Anion Gap 8 (6-14) 6 (6-14) Blood Urea Nitrogen 36 mg/dL (8-26) 26 mg/dL (8-26) Creatinine 1.0 mg/dL (0.7-1.3) 1.0 mg/dL (0.7-1.3) Estimated GFR (Cockcroft-Gault) 73.2 73.2 Glucose Level 138 mg/dL (70-99) 128 mg/dL (70-99) Calcium Level 8.0 mg/dL (8.5-10.1) 8.0 mg/dL (8.5-10.1) Laboratory Tests Test 08/10/16 04:11 White Blood Count 18.5 x10^3/uL (4.0-11.0) Red Blood Count 2.53 x10^6/uL (4.30-5.70) Hemoglobin 7.2 g/dL (13.0-17.5) Hematocrit 22.3 % (39.0-53.0) Mean Corpuscular Volume 88 fL (79-100) Mean Corpuscular Hemoglobin 29 pg (25-35) Mean Corpuscular Hemoglobin Concent 32 g/dL (31-37) Red Cell Distribution Width 14.3 % (11.5-14.5) Platelet Count 187 x10^3/uL (140-400) Neutrophils (%) (Auto) 84 % (31-73) Lymphocytes (%) (Auto) 4 % (24-48) Monocytes (%) (Auto) 12 % (0-9) Eosinophils (%) (Auto) 0 % (0-3) Basophils (%) (Auto) 0 % (0-3) Neutrophils # (Auto) 15.5 x10^3uL (1.8-7.7) Lymphocytes # (Auto) 0.8 x10^3/uL (1.0-4.8) Monocytes # (Auto) 2.2 x10^3/uL (0.0-1.1) Eosinophils # (Auto) 0.0 x10^3/uL (0.0-0.7) Basophils # (Auto) 0.0 x10^3/uL (0.0-0.2) Sodium Level 140 mmol/L (136-145) Potassium Level 4.1 mmol/L (3.5-5.1) Chloride Level 106 mmol/L (98-107) Carbon Dioxide Level 28 mmol/L (21-32) Anion Gap 6 (6-14) Blood Urea Nitrogen 26 mg/dL (8-26) Creatinine 1.0 mg/dL (0.7-1.3) Estimated GFR (Cockcroft-Gault) 73.2 Glucose Level 128 mg/dL (70-99) Calcium Level 8.0 mg/dL (8.5-10.1) Microbiology 08/09/16 Blood Culture - Preliminary, Resulted NO GROWTH AFTER 1 DAY Medications Current Medications Fentanyl Citrate (Fentanyl 2ml Vial) 50 mcg PRN Q15MIN PRN IV PAIN GREATER THAN 3/10; Start 08/08/16 at 02:00; Stop 08/08/16 at 05:00; Status DC Sodium Chloride 1,000 ml @ 1,000 mls/hr Q1H IV Last administered on 08/08/16 02:19; Start 08/08/16 at 02:15; Stop 08/08/16 at 03:14; Status DC Ondansetron HCl (Zofran) 4 mg 1X ONCE IV Last administered on 08/08/16 02:18 ; Start 08/08/16 at 02:15; Stop 08/08/16 at 02:16; Status DC Pantoprazole Sodium (Protonix Vial) 40 mg 1X ONCE IVP Last administered on 02:18; Start 08/08/16 at 02:15; Stop 08/08/16 at 02:16; Status DC Ondansetron HCl (Zofran) 4 mg PRN Q8HRS PRN IV NAUSEA/VOMITING; Start 08/08/16 at 03:30; Stop 08/08/16 at 09:38; Status DC Fentanyl Citrate (Fentanyl 2ml Vial) 50 mcg PRN Q2HR PRN IV SEVERE PAIN Last administered on 08/09/16 02:58; Start 08/08/16 at 03:30; Stop 08/09/16 at 03:29; Status DC Sodium Chloride 1,000 ml @ 100 mls/hr Q10H IV Last administered on 08/08/16 18:25; Start 08/08/16 at 03:26; Stop 08/09/16 at 03:25; Status DC Pantoprazole Sodium 80 mg/ Sodium Chloride 100 ml @ 10 mls/hr Q10H IV Last administered on 08/08/16 16:38; Start 08/08/16 at 03:30; Stop 08/09/16 at 03:29 ; Status DC Ondansetron HCl (Zofran) 4 mg PRN Q6HRS PRN IV NAUSEA/VOMITING; Start 08/08/16 at 09:36; Stop 08/09/16 at 09:35; Status DC Midazolam HCl (Versed) 2 mg PRN 1X PRN IV PRIOR TO PROCEDURE; Start 08/08/16 at 12:45; Stop 08/08/16 at 18:00; Status DC Fentanyl Citrate (Fentanyl 2ml Vial) 25 mcg PRN Q5MIN PRN IV X 2 DOSES FOR PAIN ; Start 08/08/16 at 12:45; Stop 08/08/16 at 18:00; Status DC Fentanyl Citrate (Fentanyl 2ml Vial) 50 mcg PRN Q5MIN PRN IV X 2 DOSES FOR PAIN ; Start 08/08/16 at 12:45; Stop 08/08/16 at 18:00; Status DC Ringer's Solution 1,000 ml @ 125 mls/hr Q8H IV Last administered on 08/08/16 12:52; Start 08/08/16 at 12:45; Stop 08/09/16 at 00:44; Status DC Lidocaine HCl 2 ml 1X PRN PRN ID IV START; Start 08/08/16 at 12:45; Stop at 18:00; Status DC Propofol 20 ml @ As Directed STK-MED ONCE IV ; Start 08/08/16 at 13:17; Stop at 13:18; Status DC Lidocaine HCl (Lidocaine Pf 2% Vial) 5 ml STK-MED ONCE .ROUTE ; Start 08/08/16 at 13:17; Stop 08/08/16 at 13:18; Status DC Propofol 20 ml @ As Directed STK-MED ONCE IV ; Start 08/08/16 at 13:41; Stop at 13:42; Status DC Iohexol (Omnipaque 300 Mg/ml) 100 ml STK-MED ONCE .ROUTE ; Start 08/08/16 at 14: 46; Stop 08/08/16 at 14:47; Status DC Lidocaine/Sodium Bicarbonate (Buffered Lidocaine 1%) 20 ml STK-MED ONCE IJ ; Start 08/08/16 at 14:47; Stop 08/08/16 at 14:48; Status DC Heparin Sodium/ Sodium Chloride 1,500 ml @ As Directed STK-MED ONCE .ROUTE ; Start 08/08/16 at 14:47; Stop 08/08/16 at 14:48; Status DC Midazolam HCl (Versed) 5 mg STK-MED ONCE .ROUTE ; Start 08/08/16 at 15:31; Stop 08/08/16 at 15:32; Status DC Fentanyl Citrate (Fentanyl 5ml Vial) 250 mcg STK-MED ONCE .ROUTE ; Start at 15:31; Stop 08/08/16 at 15:32; Status DC Nitroglycerin (Nitroglycerin) 200 mcg 1X ONCE IART Last administered on 17:03; Start 08/08/16 at 16:00; Stop 08/08/16 at 16:03; Status DC Heparin Sodium/ Sodium Chloride 1,000 unit 1X ONCE IART Last administered on 17:03; Start 08/08/16 at 16:00; Stop 08/08/16 at 16:03; Status DC Lidocaine/Sodium Bicarbonate (Buffered Lidocaine 1%) 20 ml 1X ONCE IJ Last administered on 08/08/16 17:04; Start 08/08/16 at 16:00; Stop 08/08/16 at 16:03 ; Status DC Midazolam HCl (Versed) 5 mg 1X ONCE IV Last administered on 08/08/16 17:04; Start 08/08/16 at 16:00; Stop 08/08/16 at 16:03; Status DC Fentanyl Citrate (Fentanyl 5ml Vial) 250 mcg 1X ONCE IV Last administered on 17:04; Start 08/08/16 at 16:00; Stop 08/08/16 at 16:03; Status DC Iohexol (Omnipaque 300 Mg/ml) 100 ml 1X ONCE IART Last administered on 17:03; Start 08/08/16 at 16:00; Stop 08/08/16 at 16:03; Status DC Info (Do NOT chart on this entry -- for MONITORING) 1 each PRN DAILY PRN MC SEE COMMENTS; Start 08/08/16 at 16:15; Stop 08/10/16 at 16:14 Gelatin (Gelfoam Size 12-7mm) 1 each STK-MED ONCE .ROUTE ; Start 08/08/16 at 16 :20; Stop 08/08/16 at 16:21; Status DC Tamsulosin HCl (Flomax) 0.4 mg QHS PO Last administered on 08/09/16 21:15; Start 08/08/16 at 21:30; Stop 08/10/16 at 07:10; Status DC Fentanyl Citrate (Fentanyl 2ml Vial) 50 mcg PRN Q2HR PRN IV PAIN Last administered on 08/10/16 08:30; Start 08/09/16 at 07:15 Acetaminophen/ Hydrocodone Bitart (Lortab 5/325) 1 tab PRN Q6HRS PRN PO PAIN Last administered on 08/10/16 12:26; Start 08/09/16 at 07:15 Pantoprazole Sodium (Protonix Vial) 40 mg DAILYAC IVP Last administered on 08:24; Start 08/09/16 at 10:00 Sodium Chloride 1,000 ml @ 100 mls/hr Q10H IV Last administered on 08/10/16 08 :23; Start 08/09/16 at 09:45 Acetaminophen (Tylenol) 650 mg PRN Q6HRS PRN PO temp Last administered on 09:51; Start 08/09/16 at 09:45 Iohexol (Omnipaque 300 Mg/ml) 75 ml 1X ONCE IV Last administered on 08/09/16 10:13; Start 08/09/16 at 09:45; Stop 08/09/16 at 09:47; Status DC Levofloxacin/ Dextrose 100 ml @ 100 mls/hr Q24H IV Last administered on 14:30; Start 08/09/16 at 14:00 Metronidazole 100 ml @ 100 mls/hr Q12HR IV Last administered on 08/10/16 08:23 ; Start 08/09/16 at 18:00 Tamsulosin HCl (Flomax) 0.4 mg BID PO Last administered on 08/10/16 08:24; Start 08/10/16 at 09:00 Active Scripts Active Pantoprazole Sodium 40 Mg Tablet.dr 40 Mg PO BID Reported Metamucil (Psyllium Husk) 0.52 Gm Capsule 0.52 Gm PO PRN DAILY PRN Hydrochlorothiazide Tablet (Hydrochlorothiazide) 12.5 Mg Tablet 25 Mg PO DAILY Aspir 81 (Aspirin) 81 Mg Tablet.dr 1 Tab PO DAILY Maalox Maximum Strength Susp (Mag Hydrox/Al Hydrox/Simeth) 355 Ml Oral.susp 355 Ml PO DAILY Omeprazole 20 Mg Capsule.dr 1 Cap PO DAILYWSUP Potassium Chloride 10 Meq Tab.er.prt 10 Meq PO DAILY Tamsulosin Hcl 0.4 Mg Cap.er.24h 0.4 Mg PO B-12 (Cyanocobalamin (Vitamin B-12)) 1,000 Mcg Tablet.er 1,000 Mcg PO Metoprolol Tartrate 25 Mg Tablet 25 Mg PO BID Magnesium (Magnesium Oxide) 400 Mg Capsule 400 Mg PO Folic Acid 0.8 Mg Tablet 0.8 Mg PO D3 + K2 Dots 1,000 Units Tab (Vitamin D3/Vitamin K2) 1 Each Tab.rapdis 1 Each PO Simvastatin 40 Mg Tablet 40 Mg PO QHS Nitrostat (Nitroglycerin) 0.4 Mg Tab.subl 0.4 Mg SL Vitals/I & O Vital Sign - Last 24 Hours 08/09/16 08/09/16 08/09/16 08/09/16 15:04 18:20 19:15 19:21 Temp 99.2 99.5 99.2 99.5 Pulse 90 100 Resp 18 8 20 8 B/P (MAP) 109/64 (79) 102/64 (77) Pulse Ox 95 95 93 95 O2 Delivery Room Air Room Air Room Air Room Air 08/09/16 08/09/16 08/09/16 08/10/16 20:08 21:57 22:59 00:15 Temp 99.5 99.5 Pulse 96 Resp 18 18 18 B/P (MAP) 105/65 (78) Pulse Ox 94 O2 Delivery Room Air Room Air Room Air Room Air 08/10/16 08/10/16 08/10/16 08/10/16 00:16 03:16 06:04 07:00 Temp 99.5 97.7 99.5 97.7 Pulse 91 87 Resp 18 18 18 20 B/P (MAP) 102/63 (76) 95/54 (68) Pulse Ox 94 94 O2 Delivery Room Air Room Air Room Air 08/10/16 08/10/16 08/10/16 08/10/16 07:20 07:20 07:25 08:30 O2 Delivery Room Air Room Air Room Air Room Air 08/10/16 08/10/16 11:00 12:26 Temp 97.5 97.5 Pulse 91 Resp 20 B/P (MAP) 97/47 (64) Pulse Ox 94 O2 Delivery Room Air Room Air Intake and Output 08/09/16 08/09/16 08/10/16 15:00 23:00 07:00 Intake Total 50 ml 345 ml 0 ml Output Total 400 ml 350 ml Balance 50 ml -55 ml -350 ml JAMES ARRIAGA MD Aug 10, 2016 13:12
[2016-08-10] MEDS: LIDOCAINE (700MG/PATCH) PATCH. TD SCH (13:45)
[2016-08-10 13:47] LABS: HEMATOCRIT 23.6 % (39.0-53.0); HEMOGLOBIN 7.7 g/dL (13.0-17.5)
[2016-08-10 15:00] VITALS: BP 115/57
--- NOTE | 2016-08-10 15:12 | PDOC ---
Infectious Disease Note Vital Sign Vital Signs Vital Signs Date Time Temp Pulse Resp B/P (MAP) Pulse Ox O2 Delivery O2 Flow Rate FiO2 08/10/16 13:45 Room Air 08/10/16 11:00 97.5 91 20 97/47 (64) 94 97.5 08/09/16 08:00 97.0 Labs Lab Laboratory Tests Test 08/10/16 04:11 08/10/16 13:40 White Blood Count 18.5 x10^3/uL (4.0-11.0) Red Blood Count 2.53 x10^6/uL (4.30-5.70) Hemoglobin 7.2 g/dL (13.0-17.5) 7.7 g/dL (13.0-17.5) Hematocrit 22.3 % (39.0-53.0) 23.6 % (39.0-53.0) Mean Corpuscular Volume 88 fL (79-100) Mean Corpuscular Hemoglobin 29 pg (25-35) Mean Corpuscular Hemoglobin Concent 32 g/dL (31-37) 33 g/dL (31-37) Red Cell Distribution Width 14.3 % (11.5-14.5) Platelet Count 187 x10^3/uL (140-400) Neutrophils (%) (Auto) 84 % (31-73) Lymphocytes (%) (Auto) 4 % (24-48) Monocytes (%) (Auto) 12 % (0-9) Eosinophils (%) (Auto) 0 % (0-3) Basophils (%) (Auto) 0 % (0-3) Neutrophils # (Auto) 15.5 x10^3uL (1.8-7.7) Lymphocytes # (Auto) 0.8 x10^3/uL (1.0-4.8) Monocytes # (Auto) 2.2 x10^3/uL (0.0-1.1) Eosinophils # (Auto) 0.0 x10^3/uL (0.0-0.7) Basophils # (Auto) 0.0 x10^3/uL (0.0-0.2) Sodium Level 140 mmol/L (136-145) Potassium Level 4.1 mmol/L (3.5-5.1) Chloride Level 106 mmol/L (98-107) Carbon Dioxide Level 28 mmol/L (21-32) Anion Gap 6 (6-14) Blood Urea Nitrogen 26 mg/dL (8-26) Creatinine 1.0 mg/dL (0.7-1.3) Estimated GFR (Cockcroft-Gault) 73.2 Glucose Level 128 mg/dL (70-99) Calcium Level 8.0 mg/dL (8.5-10.1) Objective Assessment Fever Leukocytosis Colitis on abd/pelvis CT PCN allergy Atelectasis GI bleed s/p embolization gastric artery, 08/08 Plan Plan of Care change Levaquin and Flagyl to po Monitor WBC, Cr and temp Continue ambulation Thank you [id number] Attending Co-Sign The patient was seen and interviewed as well as examined at the bedside. The chart was reviewed. The case was discussed. Agree with the plan of care. MARNI DUNCAN APRN Aug 10, 2016 15:12 ARTHUR CUNHA MD Aug 10, 2016 15:15
[2016-08-10 19:00] VITALS: BP 101/55
[2016-08-10] MEDS: ACETAMINOPHEN 325 MG TABLET. PO PRN (22:48)
[2016-08-10 23:00] VITALS: BP 95/51
[2016-08-11] VITALS (11 sets, daily range): BP systolic 95–128; BP diastolic 45–68
--- NOTE | 2016-08-11 01:25 | CONS ---
DATE OF CONSULTATION: 08/10/2016 REFERRING PHYSICIAN: Dr. Wallace. REASON FOR CONSULTATION: Pneumonia. HISTORY OF PRESENT ILLNESS: This patient is a pleasant 75-year-old male with a past medical history of esophageal cancer, status post resection, chemotherapy and radiation. He presented with a 3-4 day history of nausea followed by acute onset of bright red emesis. He was admitted for the GI bleed. He underwent an EGD followed by embolization of inferior epigastric artery on 08/08/2016. The following day, he spiked a fever of 101.1. A CT of abdomen with IV contrast only revealed volume loss compatible with atelectasis or pneumonia at the right lung base as well as probable mild diverticulitis or focal colitis extending over several centimeters at the junction of the descending and sigmoid colon. His white blood cell count is 18,000. The patient is feeling "blah." He walked earlier. Denies further nausea or vomiting. His abdomen feels somewhat sore. He is tolerating a clear liquid diet so far. Denies diarrhea or constipation. Denies cough, shortness of air or wheezing. Denies chest pain, palpitations or swelling. Denies headache, nasal/sinus congestion or sore throat. Denies difficulty swallowing. Denies dysuria, frequency or urgency. Denies rash. PAST MEDICAL HISTORY: Previous history of GI bleed, peptic ulcer, myocardial infarction, coronary artery disease, chronic obstructive pulmonary disease, hyperlipidemia, diverticulosis, history of infected Port-A-Cath. PAST SURGICAL HISTORY: Partial thyroidectomy, cholecystectomy, PEG tube placement and removal, Port-A-Cath placement and removal, coronary artery stent, esophagectomy. FAMILY HISTORY: Positive for cancer. SOCIAL HISTORY: The patient is a former smoker, drinks about 1-2 beers a month. ALLERGIES: PENICILLINS AND MORPHINE. MEDICATIONS: Levofloxacin, metronidazole, Thorazine, Tylenol, fentanyl, hydrocodone/APAP, Lidoderm patch, Protonix, Flomax. REVIEW OF SYSTEMS: As per HPI. PHYSICAL EXAMINATION: GENERAL: male, sitting on the side of the bed, in no apparent distress. VITAL SIGNS: Temperature is 97.5, blood pressure 97/47, heart rate 91, respiratory rate 20, pulse oximetry 94% on room air, weight is 152 pounds, BMI 23.8. HEENT: Pupils equally round. Normal conjunctivae. Oral mucosa is pink and moist. NECK: Supple. No adenopathy present. LUNGS: Clear to auscultation. HEART: Normal S1 and S2. ABDOMEN: Nondistended. Bowel sounds are present, soft and mildly tender in epigastric area. EXTREMITIES: No gross edema or cyanosis. SKIN: Without rash. Warm to touch. NEUROLOGIC: Alert and oriented x 3. He is ambulatory. LABORATORY DATA: Today's WBC 18.5, hemoglobin 7.2, hematocrit 22.3, platelet count 187,000. Electrolytes are unremarkable. Creatinine 1.0, BUN 26, glucose 128, total bilirubin 0.3, AST 14, ALT 17, albumin 3.2, lipase 141. Blood cultures are negative so far. Abdomen/pelvis CT per HPI. IMPRESSION: 1. Fever. 2. Leukocytosis. 3. Colitis on abdominal and pelvis CT. 4. PENICILLIN ALLERGY. 5. Atelectasis. 6. GI bleed, status post embolization of gastric artery on 08/08/2016. PLAN: Change levofloxacin and metronidazole to p.o. Monitor WBC count, creatinine, temperature. Continue ambulation. Supportive care. Thank you, Dr. Wallace for asking us to participate in this patient's care. Should you have further questions or concerns, please call. The patient seen and examined and plan of care implemented by Dr. Aden Cunha. ADEN CUNHA MD DR: DARLYN/roni JOB#: [id number] / [id number] CLARISSE
[2016-08-11] MEDS: fentaNYL PF VIAL 100 MCG/2 ML VIAL IV PRN ×5 (02:56→21:16)
[2016-08-11 04:45] LABS: BASO % 0 % (0-3); EOS % 0 % (0-3); LYMPH # 0.8 x10^3/uL (1.0-4.8); LYMPH % 6 % (24-48); MEAN CORPUSCULAR HEMOGLOBIN 29 pg (25-35); MEAN CORPUSCULAR HGB CONC 32 g/dL (31-37); MEAN CORPUSCULAR VOLUME 89 fL (79-100); MONO % 10 % (0-9); NEUT % 84 % (31-73); PLATELET COUNT 194 x10^3/uL (140-400); RED BLOOD COUNT 2.35 x10^6/uL (4.30-5.70); RED CELL DISTRIBUTION WIDTH 14.3 % (11.5-14.5); WHITE BLOOD COUNT 14.2 x10^3/uL (4.0-11.0)
[2016-08-11 04:51] LABS: HEMATOCRIT 20.8 % (39.0-53.0); HEMOGLOBIN 6.7 g/dL (13.0-17.5)
[2016-08-11] MEDS: ACETAMINOPHEN 325 MG TABLET. PO PRN (05:16)
[2016-08-11] MEDS: diphenhydrAMINE HCL 25 MG CAPSULE PO ONE ×2 (05:16→08:17)
[2016-08-11] MEDS: PANTOPRAZOLE IV PUSH 40 MG VIAL. IVP SCH (06:14)
[2016-08-11] MEDS: IV NORMAL SALINE 1000ML BAG 1,000 ML IV SCH ×2 (06:14→22:00)
[2016-08-11 08:05] LABS: BILIRUBIN,URINE NEGATIVE (NEG); GLUCOSE,URINE NEGATIVE (NEG); NITRITE,URINE NEGATIVE (NEG); PH,URINE 5.5; PROTEIN,URINE NEGATIVE (NEG-TRACE)
[2016-08-11 08:18] LABS: BACTERIA,URINE 0 /HPF (0-FEW); RBC,URINE 0 /HPF (0-2); SQUAMOUS EPITHELIAL CELL,UR MOD /LPF; WBC,URINE 20-40 /HPF (0-4)
[2016-08-11] MEDS: TAMSULOSIN 0.4 MG CAP.ER.24H. PO SCH ×2 (08:27→21:16)
[2016-08-11] MEDS: LIDOCAINE (700MG/PATCH) PATCH. TD SCH (08:35)
[2016-08-11] MEDS: HYDROcodone/APAP 5/325MG 1 TAB TABLET PO PRN ×3 (08:35→21:16)
--- NOTE | 2016-08-11 10:51 | PDOC ---
Infectious Disease Note Subjective Subjective feeling not too bad + fever Tolerating clear liquids ROS ROS GEN: Denies chills, sweats CV: Denies chest pain RESP: Denies shortness of air, cough GI: Denies n/v/d Vital Sign Vital Signs Vital Signs Date Time Temp Pulse Resp B/P (MAP) Pulse Ox O2 Delivery O2 Flow Rate FiO2 08/11/16 10:03 Room Air 08/11/16 10:01 100.0 90 16 98/55 100.0 08/11/16 07:00 90 Physical Exam PHYSICAL EXAM GENERAL: Propped up in bed, NAD Blood transfusing HEENT: OC/OP clear LUNGS: Clear HEART: S1S2, no gallop, no murmur ABD: Soft, NT, BS present EXT: No edema, no cyanosis [employer] MACHINE OPERATOR: Alert, oriented x 3, no focal neurologic deficit SKIN: No rash IV: ok Labs Lab Laboratory Tests Test 08/10/16 13:40 08/10/16 22:55 08/11/16 04:02 08/11/16 05:24 Hemoglobin 7.7 g/dL (13.0-17.5) 6.7 g/dL (13.0-17.5) Hematocrit 23.6 % (39.0-53.0) 20.8 % (39.0-53.0) Mean Corpuscular Hemoglobin Concent 33 g/dL (31-37) 32 g/dL (31-37) Glucose (Fingerstick) 119 mg/dL (70-99) White Blood Count 14.2 x10^3/uL (4.0-11.0) Red Blood Count 2.35 x10^6/uL (4.30-5.70) Mean Corpuscular Volume 89 fL (79-100) Mean Corpuscular Hemoglobin 29 pg (25-35) Red Cell Distribution Width 14.3 % (11.5-14.5) Platelet Count 194 x10^3/uL (140-400) Neutrophils (%) (Auto) 84 % (31-73) Lymphocytes (%) (Auto) 6 % (24-48) Monocytes (%) (Auto) 10 % (0-9) Eosinophils (%) (Auto) 0 % (0-3) Basophils (%) (Auto) 0 % (0-3) Neutrophils # (Auto) 11.9 x10^3uL (1.8-7.7) Lymphocytes # (Auto) 0.8 x10^3/uL (1.0-4.8) Monocytes # (Auto) 1.5 x10^3/uL (0.0-1.1) Eosinophils # (Auto) 0.0 x10^3/uL (0.0-0.7) Basophils # (Auto) 0.0 x10^3/uL (0.0-0.2) Urine Collection Type Unknown Urine Color Yellow Urine Clarity Clear Urine pH 5.5 Urine Specific [place] 1.025 Urine Protein Negative mg/dL (NEG-TRACE) Urine Glucose (UA) Negative mg/dL (NEG) Urine Ketones (Stick) Negative mg/dL (NEG) Urine Blood Negative (NEG) Urine Nitrite Negative (NEG) Urine Bilirubin Negative (NEG) Urine Urobilinogen Dipstick 1.0 mg/dL (0.2 mg/dL) Urine Leukocyte Esterase Small (NEG) Urine RBC 0 /HPF (0-2) Urine WBC 20-40 /HPF (0-4) Urine Squamous Epithelial Cells Mod /LPF Urine Bacteria 0 /HPF (0-FEW) Urine Mucus Mod /LPF Micro BLOOD CULTURE Preliminary NO GROWTH AFTER 1 DAY Objective Assessment Fever Leukocytosis, improved Colitis on abd/pelvis CT PCN allergy-joint pains Anemia Atelectasis GI bleed s/p embolization gastric artery, 08/08 Plan Plan of Care Levaquin and Flagyl change to meropenem Monitor WBC, Cr and temp Continue ambulation MARNI DUNCAN APRN Aug 11, 2016 10:51 ARTHUR CUNHA MD Aug 11, 2016 12:48
--- NOTE | 2016-08-11 13:52 | PDOC ---
PROGRESS NOTES Chief Complaint Chief Complaint 1. Hematemesis -s/p EGD w/ adherent clot, IR embol of inferior gastric artery 2. Acute blood loss anemia, possible on top of chronic anemia of hx malignancy 3. esophageal cancer s/p gastric pull up w/ chemo/radiation, [place], CAD s/p stent, COPD, HLD, partial thyroidectomy, cholecystectomy, PEG tube placement/removal 4. FEVERS, LEUKOCYTOSIS, R rib pain History of Present Illness History of Present Illness 2 issues today: 1. HGb dropped to 6.7 NO overt blood loss (emesis) ON liquid diet 2. Fevers persist, atelectasis or PNA on CT ABd pelvis is neg NO UTI ID has escalated to meropenem BC neg prelim PLAN: Transfuse 1 pRBC - HH 2 hrs after Keep on clears only HH nick AM FOllow ID recs Vitals Vitals Vital Signs Date Time Temp Pulse Resp B/P (MAP) Pulse Ox O2 Delivery O2 Flow Rate FiO2 08/11/16 12:00 101.7 87 18 111/59 101.7 08/11/16 11:00 92 Room Air Physical Exam General: Alert, Oriented X3, Cooperative, No acute distress Heart: Regular rate Lungs: Clear Abdomen: Normal bowel sounds, Soft, No tenderness, No hepatosplenomegaly, No masses Extremities: No clubbing, No cyanosis, No edema, Normal pulses, No tenderness/ swelling Skin: No rashes, No breakdown, No significant lesion Labs LABS Laboratory Tests Test 08/10/16 22:55 08/11/16 04:02 08/11/16 05:24 Glucose (Fingerstick) 119 mg/dL (70-99) White Blood Count 14.2 x10^3/uL (4.0-11.0) Red Blood Count 2.35 x10^6/uL (4.30-5.70) Hemoglobin 6.7 g/dL (13.0-17.5) Hematocrit 20.8 % (39.0-53.0) Mean Corpuscular Volume 89 fL (79-100) Mean Corpuscular Hemoglobin 29 pg (25-35) Mean Corpuscular Hemoglobin Concent 32 g/dL (31-37) Red Cell Distribution Width 14.3 % (11.5-14.5) Platelet Count 194 x10^3/uL (140-400) Neutrophils (%) (Auto) 84 % (31-73) Lymphocytes (%) (Auto) 6 % (24-48) Monocytes (%) (Auto) 10 % (0-9) Eosinophils (%) (Auto) 0 % (0-3) Basophils (%) (Auto) 0 % (0-3) Neutrophils # (Auto) 11.9 x10^3uL (1.8-7.7) Lymphocytes # (Auto) 0.8 x10^3/uL (1.0-4.8) Monocytes # (Auto) 1.5 x10^3/uL (0.0-1.1) Eosinophils # (Auto) 0.0 x10^3/uL (0.0-0.7) Basophils # (Auto) 0.0 x10^3/uL (0.0-0.2) Urine Collection Type Unknown Urine Color Yellow Urine Clarity Clear Urine pH 5.5 Urine Specific [place] 1.025 Urine Protein Negative mg/dL (NEG-TRACE) Urine Glucose (UA) Negative mg/dL (NEG) Urine Ketones (Stick) Negative mg/dL (NEG) Urine Blood Negative (NEG) Urine Nitrite Negative (NEG) Urine Bilirubin Negative (NEG) Urine Urobilinogen Dipstick 1.0 mg/dL (0.2 mg/dL) Urine Leukocyte Esterase Small (NEG) Urine RBC 0 /HPF (0-2) Urine WBC 20-40 /HPF (0-4) Urine Squamous Epithelial Cells Mod /LPF Urine Bacteria 0 /HPF (0-FEW) Urine Mucus Mod /LPF Review of Systems Review of Systems SOme R rib pain, no emesis, black stools, cp, soa Assessment and Plan Assessmemt and Plan Problems Medical Problems: (1) Acute GI bleeding Status: Acute (2) History of esophageal cancer Status: Acute (3) Hyperglycemia Status: Acute (4) Mild protein malnutrition Status: Acute (5) Peptic ulcer disease Status: Acute Problems: Comment Review of Relevant I have reviewed the following items indigo (where applicable) has been applied. Labs Laboratory Tests Test 08/10/16 04:11 08/10/16 13:40 08/10/16 22:55 08/11/16 04:02 White Blood Count 18.5 x10^3/uL (4.0-11.0) 14.2 x10^3/uL (4.0-11.0) Red Blood Count 2.53 x10^6/uL (4.30-5.70) 2.35 x10^6/uL (4.30-5.70) Hemoglobin 7.2 g/dL (13.0-17.5) 7.7 g/dL (13.0-17.5) 6.7 g/dL (13.0-17.5) Hematocrit 22.3 % (39.0-53.0) 23.6 % (39.0-53.0) 20.8 % (39.0-53.0) Mean Corpuscular Volume 88 fL (79-100) 89 fL (79-100) Mean Corpuscular Hemoglobin 29 pg (25-35) 29 pg (25-35) Mean Corpuscular Hemoglobin Concent 32 g/dL (31-37) 33 g/dL (31-37) 32 g/dL (31-37) Red Cell Distribution Width 14.3 % (11.5-14.5) 14.3 % (11.5-14.5) Platelet Count 187 x10^3/uL (140-400) 194 x10^3/uL (140-400) Neutrophils (%) (Auto) 84 % (31-73) 84 % (31-73) Lymphocytes (%) (Auto) 4 % (24-48) 6 % (24-48) Monocytes (%) (Auto) 12 % (0-9) 10 % (0-9) Eosinophils (%) (Auto) 0 % (0-3) 0 % (0-3) Basophils (%) (Auto) 0 % (0-3) 0 % (0-3) Neutrophils # (Auto) 15.5 x10^3uL (1.8-7.7) 11.9 x10^3uL (1.8-7.7) Lymphocytes # (Auto) 0.8 x10^3/uL (1.0-4.8) 0.8 x10^3/uL (1.0-4.8) Monocytes # (Auto) 2.2 x10^3/uL (0.0-1.1) 1.5 x10^3/uL (0.0-1.1) Eosinophils # (Auto) 0.0 x10^3/uL (0.0-0.7) 0.0 x10^3/uL (0.0-0.7) Basophils # (Auto) 0.0 x10^3/uL (0.0-0.2) 0.0 x10^3/uL (0.0-0.2) Sodium Level 140 mmol/L (136-145) Potassium Level 4.1 mmol/L (3.5-5.1) Chloride Level 106 mmol/L (98-107) Carbon Dioxide Level 28 mmol/L (21-32) Anion Gap 6 (6-14) Blood Urea Nitrogen 26 mg/dL (8-26) Creatinine 1.0 mg/dL (0.7-1.3) Estimated GFR (Cockcroft-Gault) 73.2 Glucose Level 128 mg/dL (70-99) Calcium Level 8.0 mg/dL (8.5-10.1) Glucose (Fingerstick) 119 mg/dL (70-99) Test 08/11/16 05:24 Urine Collection Type Unknown Urine Color Yellow Urine Clarity Clear Urine pH 5.5 Urine Specific [place] 1.025 Urine Protein Negative mg/dL (NEG-TRACE) Urine Glucose (UA) Negative mg/dL (NEG) Urine Ketones (Stick) Negative mg/dL (NEG) Urine Blood Negative (NEG) Urine Nitrite Negative (NEG) Urine Bilirubin Negative (NEG) Urine Urobilinogen Dipstick 1.0 mg/dL (0.2 mg/dL) Urine Leukocyte Esterase Small (NEG) Urine RBC 0 /HPF (0-2) Urine WBC 20-40 /HPF (0-4) Urine Squamous Epithelial Cells Mod /LPF Urine Bacteria 0 /HPF (0-FEW) Urine Mucus Mod /LPF Laboratory Tests Test 08/10/16 22:55 08/11/16 04:02 08/11/16 05:24 Glucose (Fingerstick) 119 mg/dL (70-99) White Blood Count 14.2 x10^3/uL (4.0-11.0) Red Blood Count 2.35 x10^6/uL (4.30-5.70) Hemoglobin 6.7 g/dL (13.0-17.5) Hematocrit 20.8 % (39.0-53.0) Mean Corpuscular Volume 89 fL (79-100) Mean Corpuscular Hemoglobin 29 pg (25-35) Mean Corpuscular Hemoglobin Concent 32 g/dL (31-37) Red Cell Distribution Width 14.3 % (11.5-14.5) Platelet Count 194 x10^3/uL (140-400) Neutrophils (%) (Auto) 84 % (31-73) Lymphocytes (%) (Auto) 6 % (24-48) Monocytes (%) (Auto) 10 % (0-9) Eosinophils (%) (Auto) 0 % (0-3) Basophils (%) (Auto) 0 % (0-3) Neutrophils # (Auto) 11.9 x10^3uL (1.8-7.7) Lymphocytes # (Auto) 0.8 x10^3/uL (1.0-4.8) Monocytes # (Auto) 1.5 x10^3/uL (0.0-1.1) Eosinophils # (Auto) 0.0 x10^3/uL (0.0-0.7) Basophils # (Auto) 0.0 x10^3/uL (0.0-0.2) Urine Collection Type Unknown Urine Color Yellow Urine Clarity Clear Urine pH 5.5 Urine Specific [place] 1.025 Urine Protein Negative mg/dL (NEG-TRACE) Urine Glucose (UA) Negative mg/dL (NEG) Urine Ketones (Stick) Negative mg/dL (NEG) Urine Blood Negative (NEG) Urine Nitrite Negative (NEG) Urine Bilirubin Negative (NEG) Urine Urobilinogen Dipstick 1.0 mg/dL (0.2 mg/dL) Urine Leukocyte Esterase Small (NEG) Urine RBC 0 /HPF (0-2) Urine WBC 20-40 /HPF (0-4) Urine Squamous Epithelial Cells Mod /LPF Urine Bacteria 0 /HPF (0-FEW) Urine Mucus Mod /LPF Microbiology 08/10/16 Blood Culture - Preliminary, Resulted NO GROWTH AFTER 1 DAY Medications Current Medications Fentanyl Citrate (Fentanyl 2ml Vial) 50 mcg PRN Q15MIN PRN IV PAIN GREATER THAN 3/10; Start 08/08/16 at 02:00; Stop 08/08/16 at 05:00; Status DC Sodium Chloride 1,000 ml @ 1,000 mls/hr Q1H IV Last administered on 08/08/16t 02:19; Start 08/08/16 at 02:15; Stop 08/08/16 at 03:14; Status DC Ondansetron HCl (Zofran) 4 mg 1X ONCE IV Last administered on 08/08/16 02:18 ; Start 08/08/16 at 02:15; Stop 08/08/16 at 02:16; Status DC Pantoprazole Sodium (Protonix Vial) 40 mg 1X ONCE IVP Last administered on 02:18; Start 08/08/16 at 02:15; Stop 08/08/16 at 02:16; Status DC Ondansetron HCl (Zofran) 4 mg PRN Q8HRS PRN IV NAUSEA/VOMITING; Start 08/08/16 at 03:30; Stop 08/08/16 at 09:38; Status DC Fentanyl Citrate (Fentanyl 2ml Vial) 50 mcg PRN Q2HR PRN IV SEVERE PAIN Last administered on 08/09/16 02:58; Start 08/08/16 at 03:30; Stop 08/09/16 at 03:29; Status DC Sodium Chloride 1,000 ml @ 100 mls/hr Q10H IV Last administered on 08/08/16 18:25; Start 08/08/16 at 03:26; Stop 08/09/16 at 03:25; Status DC Pantoprazole Sodium 80 mg/ Sodium Chloride 100 ml @ 10 mls/hr Q10H IV Last administered on 08/08/16 16:38; Start 08/08/16 at 03:30; Stop 08/09/16 at 03:29 ; Status DC Ondansetron HCl (Zofran) 4 mg PRN Q6HRS PRN IV NAUSEA/VOMITING; Start 08/08/16 at 09:36; Stop 08/09/16 at 09:35; Status DC Midazolam HCl (Versed) 2 mg PRN 1X PRN IV PRIOR TO PROCEDURE; Start 08/08/16 at 12:45; Stop 08/08/16 at 18:00; Status DC Fentanyl Citrate (Fentanyl 2ml Vial) 25 mcg PRN Q5MIN PRN IV X 2 DOSES FOR PAIN ; Start 08/08/16 at 12:45; Stop 08/08/16 at 18:00; Status DC Fentanyl Citrate (Fentanyl 2ml Vial) 50 mcg PRN Q5MIN PRN IV X 2 DOSES FOR PAIN ; Start 08/08/16 at 12:45; Stop 08/08/16 at 18:00; Status DC Ringer's Solution 1,000 ml @ 125 mls/hr Q8H IV Last administered on 08/08/16t 12:52; Start 08/08/16 at 12:45; Stop 08/09/16 at 00:44; Status DC Lidocaine HCl 2 ml 1X PRN PRN ID IV START; Start 08/08/16 at 12:45; Stop at 18:00; Status DC Propofol 20 ml @ As Directed STK-MED ONCE IV ; Start 08/08/16 at 13:17; Stop at 13:18; Status DC Lidocaine HCl (Lidocaine Pf 2% Vial) 5 ml STK-MED ONCE .ROUTE ; Start 08/08/16 at 13:17; Stop 08/08/16 at 13:18; Status DC Propofol 20 ml @ As Directed STK-MED ONCE IV ; Start 08/08/16 at 13:41; Stop at 13:42; Status DC Iohexol (Omnipaque 300 Mg/ml) 100 ml STK-MED ONCE .ROUTE ; Start 08/08/16 at 14: 46; Stop 08/08/16 at 14:47; Status DC Lidocaine/Sodium Bicarbonate (Buffered Lidocaine 1%) 20 ml STK-MED ONCE IJ ; Start 08/08/16 at 14:47; Stop 08/08/16 at 14:48; Status DC Heparin Sodium/ Sodium Chloride 1,500 ml @ As Directed STK-MED ONCE .ROUTE ; Start 08/08/16 at 14:47; Stop 08/08/16 at 14:48; Status DC Midazolam HCl (Versed) 5 mg STK-MED ONCE .ROUTE ; Start 08/08/16 at 15:31; Stop 08/08/16 at 15:32; Status DC Fentanyl Citrate (Fentanyl 5ml Vial) 250 mcg STK-MED ONCE .ROUTE ; Start at 15:31; Stop 08/08/16 at 15:32; Status DC Nitroglycerin (Nitroglycerin) 200 mcg 1X ONCE IART Last administered on t 17:03; Start 08/08/16 at 16:00; Stop 08/08/16 at 16:03; Status DC Heparin Sodium/ Sodium Chloride 1,000 unit 1X ONCE IART Last administered on 17:03; Start 08/08/16 at 16:00; Stop 08/08/16 at 16:03; Status DC Lidocaine/Sodium Bicarbonate (Buffered Lidocaine 1%) 20 ml 1X ONCE IJ Last administered on 08/08/16 17:04; Start 08/08/16 at 16:00; Stop 08/08/16 at 16:03 ; Status DC Midazolam HCl (Versed) 5 mg 1X ONCE IV Last administered on 08/08/16 17:04; Start 08/08/16 at 16:00; Stop 08/08/16 at 16:03; Status DC Fentanyl Citrate (Fentanyl 5ml Vial) 250 mcg 1X ONCE IV Last administered on 17:04; Start 08/08/16 at 16:00; Stop 08/08/16 at 16:03; Status DC Iohexol (Omnipaque 300 Mg/ml) 100 ml 1X ONCE IART Last administered on 17:03; Start 08/08/16 at 16:00; Stop 08/08/16 at 16:03; Status DC Info (Do NOT chart on this entry -- for MONITORING) 1 each PRN DAILY PRN MC SEE COMMENTS; Start 08/08/16 at 16:15; Stop 08/10/16 at 16:14; Status DC Gelatin (Gelfoam Size 12-7mm) 1 each STK-MED ONCE .ROUTE ; Start 08/08/16 at 16 :20; Stop 08/08/16 at 16:21; Status DC Tamsulosin HCl (Flomax) 0.4 mg QHS PO Last administered on 08/09/16 21:15; Start 08/08/16 at 21:30; Stop 08/10/16 at 07:10; Status DC Fentanyl Citrate (Fentanyl 2ml Vial) 50 mcg PRN Q2HR PRN IV PAIN Last administered on 08/11/16 08:28; Start 08/09/16 at 07:15 Acetaminophen/ Hydrocodone Bitart (Lortab 5/325) 1 tab PRN Q6HRS PRN PO PAIN Last administered on 08/11/16 08:35; Start 08/09/16 at 07:15 Pantoprazole Sodium (Protonix Vial) 40 mg DAILYAC IVP Last administered on 06:14; Start 08/09/16 at 10:00 Sodium Chloride 1,000 ml @ 100 mls/hr Q10H IV Last administered on 08/11/16 06 :14; Start 08/09/16 at 09:45 Acetaminophen (Tylenol) 650 mg PRN Q6HRS PRN PO temp Last administered on 05:16; Start 08/09/16 at 09:45 Iohexol (Omnipaque 300 Mg/ml) 75 ml 1X ONCE IV Last administered on 08/09/16 10:13; Start 08/09/16 at 09:45; Stop 08/09/16 at 09:47; Status DC Levofloxacin/ Dextrose 100 ml @ 100 mls/hr Q24H IV Last administered on 15:00; Start 08/09/16 at 14:00; Stop 08/11/16 at 12:49; Status DC Metronidazole 100 ml @ 100 mls/hr Q12HR IV Last administered on 08/11/16 11:34 ; Start 08/09/16 at 18:00; Stop 08/11/16 at 12:49; Status DC Tamsulosin HCl (Flomax) 0.4 mg BID PO Last administered on 08/11/16 08:27; Start 08/10/16 at 09:00 Lidocaine (Lidoderm) 1 patch DAILY TD Last administered on 08/10/16 13:45; Start 08/10/16 at 13:15 Chlorpromazine HCl (Thorazine) 25 mg PRN Q6HRS PRN PO HICCUPS; Start 08/10/16 at 14:45 Diphenhydramine HCl (Benadryl) 25 mg 1X ONCE PO Last administered on 08/11/16 08:17; Start 08/11/16 at 05:15; Stop 08/11/16 at 05:16; Status DC Meropenem 500 mg/ Sodium Chloride 50 ml @ 100 mls/hr Q8HRS IV ; Start 08/11/16 at 14:00 Active Scripts Active Pantoprazole Sodium 40 Mg Tablet.dr 40 Mg PO BID Reported Metamucil (Psyllium Husk) 0.52 Gm Capsule 0.52 Gm PO PRN DAILY PRN Hydrochlorothiazide Tablet (Hydrochlorothiazide) 12.5 Mg Tablet 25 Mg PO DAILY Aspir 81 (Aspirin) 81 Mg Tablet.dr 1 Tab PO DAILY Maalox Maximum Strength Susp (Mag Hydrox/Al Hydrox/Simeth) 355 Ml Oral.susp 355 Ml PO DAILY Omeprazole 20 Mg Capsule.dr 1 Cap PO DAILYWSUP Potassium Chloride 10 Meq Tab.er.prt 10 Meq PO DAILY Tamsulosin Hcl 0.4 Mg Cap.er.24h 0.4 Mg PO B-12 (Cyanocobalamin (Vitamin B-12)) 1,000 Mcg Tablet.er 1,000 Mcg PO Metoprolol Tartrate 25 Mg Tablet 25 Mg PO BID Magnesium (Magnesium Oxide) 400 Mg Capsule 400 Mg PO Folic Acid 0.8 Mg Tablet 0.8 Mg PO D3 + K2 Dots 1,000 Units Tab (Vitamin D3/Vitamin K2) 1 Each Tab.rapdis 1 Each PO Simvastatin 40 Mg Tablet 40 Mg PO QHS Nitrostat (Nitroglycerin) 0.4 Mg Tab.subl 0.4 Mg SL Vitals/I & O Vital Sign - Last 24 Hours 08/10/16 08/10/16 08/10/16 08/10/16 15:00 19:00 20:00 20:52 Temp 97.5 98.8 97.5 98.8 Pulse 101 98 Resp 20 18 18 B/P (MAP) 115/57 (76) 101/55 (70) Pulse Ox 92 93 O2 Delivery Room Air Room Air Room Air Room Air 08/10/16 08/11/16 08/11/16 08/11/16 23:00 02:56 03:00 05:30 Temp 100.6 100.2 99.1 100.6 100.2 99.1 Pulse 95 88 90 Resp 18 18 18 18 B/P (MAP) 95/51 (66) 95/54 (68) Pulse Ox 92 93 92 O2 Delivery Room Air Room Air Room Air 08/11/16 08/11/16 08/11/16 08/11/16 07:00 07:50 08:28 08:35 Temp 100.6 100.6 Pulse 87 Resp 20 B/P (MAP) 101/56 (71) Pulse Ox 90 O2 Delivery Room Air Room Air Room Air Room Air 08/11/16 08/11/16 08/11/16 08/11/16 08:44 08:59 09:02 10:01 Temp 101.7 100.9 100.0 101.7 100.9 100.0 Pulse 89 89 90 Resp 16 16 16 B/P (MAP) 103/56 102/55 98/55 O2 Delivery Room Air 08/11/16 08/11/16 08/11/16 08/11/16 10:03 11:00 11:00 12:00 Temp 99.5 99.5 101.7 99.5 99.5 101.7 Pulse 84 84 87 Resp 20 20 18 B/P (MAP) 128/68 128/68 (88) 111/59 Pulse Ox 92 O2 Delivery Room Air Room Air Intake and Output 08/10/16 08/10/16 08/11/16 15:00 23:00 07:00 Intake Total 819 ml 450 ml Output Total 100 ml 850 ml 175 ml Balance -100 ml -31 ml 275 ml JAMES ARRIAGA MD Aug 11, 2016 13:52
[2016-08-11] MEDS: MEROPENEM 500 MG in IV NORMAL SALINE 50ML 50 ML IV SCH ×2 (14:03→21:16)
[2016-08-11 14:28] LABS: HEMATOCRIT 25.6 % (39.0-53.0); HEMOGLOBIN 8.5 g/dL (13.0-17.5)
[2016-08-12] MEDS: HYDROcodone/APAP 5/325MG 1 TAB TABLET PO PRN ×4 (02:30→21:28)
[2016-08-12] MEDS: fentaNYL PF VIAL 100 MCG/2 ML VIAL IV PRN ×5 (02:30→21:28)
[2016-08-12 03:05] VITALS: BP 122/65
[2016-08-12] MEDS: MEROPENEM 500 MG in IV NORMAL SALINE 50ML 50 ML IV SCH ×3 (05:09→18:08)
[2016-08-12] MEDS: IV NORMAL SALINE 1000ML BAG 1,000 ML IV SCH ×2 (06:22→18:08)
[2016-08-12] MEDS: PANTOPRAZOLE IV PUSH 40 MG VIAL. IVP SCH (06:22)
[2016-08-12 07:00] VITALS: BP 114/61
[2016-08-12] MEDS: TAMSULOSIN 0.4 MG CAP.ER.24H. PO SCH ×2 (08:50→21:28)
[2016-08-12] MEDS: chlorproMAZINE 25 MG TABLET PO PRN ×2 (08:50→18:09)
[2016-08-12] MEDS: LIDOCAINE (700MG/PATCH) PATCH. TD SCH (09:19)
--- NOTE | 2016-08-12 09:35 | PDOC ---
Infectious Disease Note Subjective Subjective + cough with phlegm production Now on supplemental O2, 2LNC Persistent fevers ROS ROS GEN: Denies chills, sweats CV: Denies chest pain RESP: Denies shortness of air GI: Denies n/v/d Vital Sign Vital Signs Vital Signs Date Time Temp Pulse Resp B/P (MAP) Pulse Ox O2 Delivery O2 Flow Rate FiO2 08/12/16 08:51 Nasal Cannula 08/12/16 07:00 100.8 85 20 114/61 (78) 94 100.8 08/12/16 03:40 2.0 Physical Exam PHYSICAL EXAM GENERAL: Propped up in bed, NAD HEENT: OC/OP clear LUNGS: Clear HEART: S1S2, no gallop, no murmur ABD: Soft, NT, BS present EXT: BLE trace edema. No cyanosis RESIDENTIAL AIDE: Alert, oriented x 3, no focal neurologic deficit SKIN: No rash IV: ok Labs Lab Laboratory Tests Test 08/11/16 14:00 Hemoglobin 8.5 g/dL (13.0-17.5) Hematocrit 25.6 % (39.0-53.0) Mean Corpuscular Hemoglobin Concent 33 g/dL (31-37) Micro BLOOD CULTURE NGTD Objective Assessment Fever Leukocytosis, improved Colitis on abd/pelvis CT PCN allergy-joint pains Anemia Atelectasis GI bleed s/p embolization gastric artery, 08/08 Plan Plan of Care meropenem Monitor WBC, Cr and temp Panculture pending Attending Co-Sign The patient was seen and interviewed as well as examined at the bedside. The chart was reviewed. The case was discussed. Agree with the plan of care. MARNI DUNCAN APRN Aug 12, 2016 09:35 ARTHUR CUNHA MD Aug 12, 2016 14:15
--- NOTE | 2016-08-12 10:54 | PDOC ---
PROGRESS NOTES Chief Complaint Chief Complaint 1. Hematemesis -s/p EGD w/ adherent clot, IR embol of inferior gastric artery 2. Acute blood loss anemia, possible on top of chronic anemia of hx malignancy 3. esophageal cancer s/p gastric pull up w/ chemo/radiation, [place], CAD s/p stent, COPD, HLD, partial thyroidectomy, cholecystectomy, PEG tube placement/removal 4. FEVERS, LEUKOCYTOSIS, R rib pain History of Present Illness History of Present Illness Temp 100.8 this AM [place] warm NOt coughing NO diarrhea BC neg prelim HGb up to 8 plus after 1 prBC NO overt blood loss PLAN: On IV meropenem Follow BC HH inck CBC nick PT/OT Dw pt Vitals Vitals Vital Signs Date Time Temp Pulse Resp B/P (MAP) Pulse Ox O2 Delivery O2 Flow Rate FiO2 08/12/16 10:23 Nasal Cannula 08/12/16 07:00 100.8 85 20 114/61 (78) 94 100.8 08/12/16 03:40 2.0 Physical Exam General: Alert, Oriented X3, Cooperative, No acute distress Heart: Regular rate Lungs: Clear Abdomen: Normal bowel sounds, Soft, No tenderness, No hepatosplenomegaly, No masses Extremities: No clubbing, No cyanosis, No edema, Normal pulses, No tenderness/ swelling Skin: No rashes, No breakdown, No significant lesion Labs LABS Laboratory Tests Test 08/11/16 14:00 08/12/16 09:42 Hemoglobin 8.5 g/dL (13.0-17.5) 9.3 g/dL (13.0-17.5) Hematocrit 25.6 % (39.0-53.0) 26.9 % (39.0-53.0) Mean Corpuscular Hemoglobin Concent 33 g/dL (31-37) 35 g/dL (31-37) Review of Systems Review of Systems denies 14 pt except felt warm this AM Assessment and Plan Assessmemt and Plan Problems Medical Problems: (1) Acute GI bleeding Status: Acute (2) History of esophageal cancer Status: Acute (3) Hyperglycemia Status: Acute (4) Mild protein malnutrition Status: Acute (5) Peptic ulcer disease Status: Acute Problems: Comment Review of Relevant I have reviewed the following items indigo (where applicable) has been applied. Labs Laboratory Tests Test 08/10/16 13:40 08/10/16 22:55 08/11/16 04:02 08/11/16 05:24 Hemoglobin 7.7 g/dL (13.0-17.5) 6.7 g/dL (13.0-17.5) Hematocrit 23.6 % (39.0-53.0) 20.8 % (39.0-53.0) Mean Corpuscular Hemoglobin Concent 33 g/dL (31-37) 32 g/dL (31-37) Glucose (Fingerstick) 119 mg/dL (70-99) White Blood Count 14.2 x10^3/uL (4.0-11.0) Red Blood Count 2.35 x10^6/uL (4.30-5.70) Mean Corpuscular Volume 89 fL (79-100) Mean Corpuscular Hemoglobin 29 pg (25-35) Red Cell Distribution Width 14.3 % (11.5-14.5) Platelet Count 194 x10^3/uL (140-400) Neutrophils (%) (Auto) 84 % (31-73) Lymphocytes (%) (Auto) 6 % (24-48) Monocytes (%) (Auto) 10 % (0-9) Eosinophils (%) (Auto) 0 % (0-3) Basophils (%) (Auto) 0 % (0-3) Neutrophils # (Auto) 11.9 x10^3uL (1.8-7.7) Lymphocytes # (Auto) 0.8 x10^3/uL (1.0-4.8) Monocytes # (Auto) 1.5 x10^3/uL (0.0-1.1) Eosinophils # (Auto) 0.0 x10^3/uL (0.0-0.7) Basophils # (Auto) 0.0 x10^3/uL (0.0-0.2) Urine Collection Type Unknown Urine Color Yellow Urine Clarity Clear Urine pH 5.5 Urine Specific [place] 1.025 Urine Protein Negative mg/dL (NEG-TRACE) Urine Glucose (UA) Negative mg/dL (NEG) Urine Ketones (Stick) Negative mg/dL (NEG) Urine Blood Negative (NEG) Urine Nitrite Negative (NEG) Urine Bilirubin Negative (NEG) Urine Urobilinogen Dipstick 1.0 mg/dL (0.2 mg/dL) Urine Leukocyte Esterase Small (NEG) Urine RBC 0 /HPF (0-2) Urine WBC 20-40 /HPF (0-4) Urine Squamous Epithelial Cells Mod /LPF Urine Bacteria 0 /HPF (0-FEW) Urine Mucus Mod /LPF Test 08/11/16 14:00 08/12/16 09:42 Hemoglobin 8.5 g/dL (13.0-17.5) 9.3 g/dL (13.0-17.5) Hematocrit 25.6 % (39.0-53.0) 26.9 % (39.0-53.0) Mean Corpuscular Hemoglobin Concent 33 g/dL (31-37) 35 g/dL (31-37) Laboratory Tests Test 08/11/16 14:00 08/12/16 09:42 Hemoglobin 8.5 g/dL (13.0-17.5) 9.3 g/dL (13.0-17.5) Hematocrit 25.6 % (39.0-53.0) 26.9 % (39.0-53.0) Mean Corpuscular Hemoglobin Concent 33 g/dL (31-37) 35 g/dL (31-37) Microbiology 08/10/16 Blood Culture - Preliminary, Resulted NO GROWTH AFTER 1 DAY Medications Current Medications Fentanyl Citrate (Fentanyl 2ml Vial) 50 mcg PRN Q15MIN PRN IV PAIN GREATER THAN 3/10; Start 08/08/16 at 02:00; Stop 08/08/16 at 05:00; Status DC Sodium Chloride 1,000 ml @ 1,000 mls/hr Q1H IV Last administered on 08/08/16 02:19; Start 08/08/16 at 02:15; Stop 08/08/16 at 03:14; Status DC Ondansetron HCl (Zofran) 4 mg 1X ONCE IV Last administered on 08/08/16 02:18 ; Start 08/08/16 at 02:15; Stop 08/08/16 at 02:16; Status DC Pantoprazole Sodium (Protonix Vial) 40 mg 1X ONCE IVP Last administered on 02:18; Start 08/08/16 at 02:15; Stop 08/08/16 at 02:16; Status DC Ondansetron HCl (Zofran) 4 mg PRN Q8HRS PRN IV NAUSEA/VOMITING; Start 08/08/16 at 03:30; Stop 08/08/16 at 09:38; Status DC Fentanyl Citrate (Fentanyl 2ml Vial) 50 mcg PRN Q2HR PRN IV SEVERE PAIN Last administered on 08/09/16 02:58; Start 08/08/16 at 03:30; Stop 08/09/16 at 03:29; Status DC Sodium Chloride 1,000 ml @ 100 mls/hr Q10H IV Last administered on 08/08/16 18:25; Start 08/08/16 at 03:26; Stop 08/09/16 at 03:25; Status DC Pantoprazole Sodium 80 mg/ Sodium Chloride 100 ml @ 10 mls/hr Q10H IV Last administered on 08/08/16 16:38; Start 08/08/16 at 03:30; Stop 08/09/16 at 03:29 ; Status DC Ondansetron HCl (Zofran) 4 mg PRN Q6HRS PRN IV NAUSEA/VOMITING; Start 08/08/16 at 09:36; Stop 08/09/16 at 09:35; Status DC Midazolam HCl (Versed) 2 mg PRN 1X PRN IV PRIOR TO PROCEDURE; Start 08/08/16 at 12:45; Stop 08/08/16 at 18:00; Status DC Fentanyl Citrate (Fentanyl 2ml Vial) 25 mcg PRN Q5MIN PRN IV X 2 DOSES FOR PAIN ; Start 08/08/16 at 12:45; Stop 08/08/16 at 18:00; Status DC Fentanyl Citrate (Fentanyl 2ml Vial) 50 mcg PRN Q5MIN PRN IV X 2 DOSES FOR PAIN ; Start 08/08/16 at 12:45; Stop 08/08/16 at 18:00; Status DC Ringer's Solution 1,000 ml @ 125 mls/hr Q8H IV Last administered on 08/08/16 12:52; Start 08/08/16 at 12:45; Stop 08/09/16 at 00:44; Status DC Lidocaine HCl 2 ml 1X PRN PRN ID IV START; Start 08/08/16 at 12:45; Stop at 18:00; Status DC Propofol 20 ml @ As Directed STK-MED ONCE IV ; Start 08/08/16 at 13:17; Stop at 13:18; Status DC Lidocaine HCl (Lidocaine Pf 2% Vial) 5 ml STK-MED ONCE .ROUTE ; Start 08/08/16 at 13:17; Stop 08/08/16 at 13:18; Status DC Propofol 20 ml @ As Directed STK-MED ONCE IV ; Start 08/08/16 at 13:41; Stop at 13:42; Status DC Iohexol (Omnipaque 300 Mg/ml) 100 ml STK-MED ONCE .ROUTE ; Start 08/08/16 at 14: 46; Stop 08/08/16 at 14:47; Status DC Lidocaine/Sodium Bicarbonate (Buffered Lidocaine 1%) 20 ml STK-MED ONCE IJ ; Start 08/08/16 at 14:47; Stop 08/08/16 at 14:48; Status DC Heparin Sodium/ Sodium Chloride 1,500 ml @ As Directed STK-MED ONCE .ROUTE ; Start 08/08/16 at 14:47; Stop 08/08/16 at 14:48; Status DC Midazolam HCl (Versed) 5 mg STK-MED ONCE .ROUTE ; Start 08/08/16 at 15:31; Stop 08/08/16 at 15:32; Status DC Fentanyl Citrate (Fentanyl 5ml Vial) 250 mcg STK-MED ONCE .ROUTE ; Start at 15:31; Stop 08/08/16 at 15:32; Status DC Nitroglycerin (Nitroglycerin) 200 mcg 1X ONCE IART Last administered on 17:03; Start 08/08/16 at 16:00; Stop 08/08/16 at 16:03; Status DC Heparin Sodium/ Sodium Chloride 1,000 unit 1X ONCE IART Last administered on 17:03; Start 08/08/16 at 16:00; Stop 08/08/16 at 16:03; Status DC Lidocaine/Sodium Bicarbonate (Buffered Lidocaine 1%) 20 ml 1X ONCE IJ Last administered on 08/08/16 17:04; Start 08/08/16 at 16:00; Stop 08/08/16 at 16:03 ; Status DC Midazolam HCl (Versed) 5 mg 1X ONCE IV Last administered on 08/08/16 17:04; Start 08/08/16 at 16:00; Stop 08/08/16 at 16:03; Status DC Fentanyl Citrate (Fentanyl 5ml Vial) 250 mcg 1X ONCE IV Last administered on 17:04; Start 08/08/16 at 16:00; Stop 08/08/16 at 16:03; Status DC Iohexol (Omnipaque 300 Mg/ml) 100 ml 1X ONCE IART Last administered on 17:03; Start 08/08/16 at 16:00; Stop 08/08/16 at 16:03; Status DC Info (Do NOT chart on this entry -- for MONITORING) 1 each PRN DAILY PRN MC SEE COMMENTS; Start 08/08/16 at 16:15; Stop 08/10/16 at 16:14; Status DC Gelatin (Gelfoam Size 12-7mm) 1 each STK-MED ONCE .ROUTE ; Start 08/08/16 at 16 :20; Stop 08/08/16 at 16:21; Status DC Tamsulosin HCl (Flomax) 0.4 mg QHS PO Last administered on 08/09/16 21:15; Start 08/08/16 at 21:30; Stop 08/10/16 at 07:10; Status DC Fentanyl Citrate (Fentanyl 2ml Vial) 50 mcg PRN Q2HR PRN IV PAIN Last administered on 08/12/16 08:51; Start 08/09/16 at 07:15 Acetaminophen/ Hydrocodone Bitart (Lortab 5/325) 1 tab PRN Q6HRS PRN PO PAIN Last administered on 08/12/16 08:50; Start 08/09/16 at 07:15 Pantoprazole Sodium (Protonix Vial) 40 mg DAILYAC IVP Last administered on 06:22; Start 08/09/16 at 10:00 Sodium Chloride 1,000 ml @ 100 mls/hr Q10H IV Last administered on 08/12/16 06 :22; Start 08/09/16 at 09:45 Acetaminophen (Tylenol) 650 mg PRN Q6HRS PRN PO temp Last administered on 05:16; Start 08/09/16 at 09:45 Iohexol (Omnipaque 300 Mg/ml) 75 ml 1X ONCE IV Last administered on 08/09/16 10:13; Start 08/09/16 at 09:45; Stop 08/09/16 at 09:47; Status DC Levofloxacin/ Dextrose 100 ml @ 100 mls/hr Q24H IV Last administered on 15:00; Start 08/09/16 at 14:00; Stop 08/11/16 at 12:49; Status DC Metronidazole 100 ml @ 100 mls/hr Q12HR IV Last administered on 08/11/16 11:34 ; Start 08/09/16 at 18:00; Stop 08/11/16 at 12:49; Status DC Tamsulosin HCl (Flomax) 0.4 mg BID PO Last administered on 08/12/16 08:50; Start 08/10/16 at 09:00 Lidocaine (Lidoderm) 1 patch DAILY TD Last administered on 08/10/16 13:45; Start 08/10/16 at 13:15 Chlorpromazine HCl (Thorazine) 25 mg PRN Q6HRS PRN PO HICCUPS Last administered on 08/12/16 08:50; Start 08/10/16 at 14:45 Diphenhydramine HCl (Benadryl) 25 mg 1X ONCE PO Last administered on 08/11/16 08:17; Start 08/11/16 at 05:15; Stop 08/11/16 at 05:16; Status DC Meropenem 500 mg/ Sodium Chloride 50 ml @ 100 mls/hr Q8HRS IV Last administered on 08/12/16 05:09; Start 08/11/16 at 14:00 Active Scripts Active Pantoprazole Sodium 40 Mg Tablet.dr 40 Mg PO BID Reported Metamucil (Psyllium Husk) 0.52 Gm Capsule 0.52 Gm PO PRN DAILY PRN Hydrochlorothiazide Tablet (Hydrochlorothiazide) 12.5 Mg Tablet 25 Mg PO DAILY Aspir 81 (Aspirin) 81 Mg Tablet.dr 1 Tab PO DAILY Maalox Maximum Strength Susp (Mag Hydrox/Al Hydrox/Simeth) 355 Ml Oral.susp 355 Ml PO DAILY Omeprazole 20 Mg Capsule.dr 1 Cap PO DAILYWSUP Potassium Chloride 10 Meq Tab.er.prt 10 Meq PO DAILY Tamsulosin Hcl 0.4 Mg Cap.er.24h 0.4 Mg PO B-12 (Cyanocobalamin (Vitamin B-12)) 1,000 Mcg Tablet.er 1,000 Mcg PO Metoprolol Tartrate 25 Mg Tablet 25 Mg PO BID Magnesium (Magnesium Oxide) 400 Mg Capsule 400 Mg PO Folic Acid 0.8 Mg Tablet 0.8 Mg PO D3 + K2 Dots 1,000 Units Tab (Vitamin D3/Vitamin K2) 1 Each Tab.rapdis 1 Each PO Simvastatin 40 Mg Tablet 40 Mg PO QHS Nitrostat (Nitroglycerin) 0.4 Mg Tab.subl 0.4 Mg SL Vitals/I & O Vital Sign - Last 24 Hours 08/11/16 08/11/16 08/11/16 08/11/16 11:00 11:00 12:00 13:00 Temp 99.5 99.5 101.7 99.5 99.5 101.7 Pulse 84 84 87 Resp 20 20 18 B/P (MAP) 128/68 128/68 (88) 111/59 Pulse Ox 92 O2 Delivery Room Air Room Air 08/11/16 08/11/16 08/11/16 08/11/16 13:00 14:04 15:00 17:13 Temp 97.9 100.8 97.9 100.8 Pulse 85 82 Resp 20 20 B/P (MAP) 99/45 (63) 105/58 (74) Pulse Ox 95 93 O2 Delivery Room Air Room Air Room Air Room Air 08/11/16 08/11/16 08/11/16 08/11/16 17:15 19:05 19:50 21:16 Temp 98.8 98.8 Pulse 95 Resp 16 B/P (MAP) 111/63 (79) Pulse Ox 92 92 O2 Delivery Room Air Room Air Room Air Room Air 08/11/16 08/11/16 08/12/16 08/12/16 21:16 23:04 02:30 02:30 Temp 98.3 98.3 Pulse 85 Resp 16 B/P (MAP) 119/67 (84) Pulse Ox 92 96 96 96 O2 Delivery Room Air Nasal Cannula Room Air Nasal Cannula O2 Flow Rate 2.0 2.0 2.0 08/12/16 08/12/16 08/12/16 08/12/16 03:01 03:05 03:40 05:11 Temp 99.1 98.6 99.1 98.6 Pulse 81 Resp 16 B/P (MAP) 122/65 (84) Pulse Ox 96 96 96 O2 Delivery Nasal Cannula O2 Flow Rate 2.0 2.0 2.0 08/12/16 08/12/16 08/12/16 08/12/16 07:00 08:50 08:51 10:22 Temp 100.8 100.8 Pulse 85 Resp 20 B/P (MAP) 114/61 (78) Pulse Ox 94 O2 Delivery Room Air Room Air Nasal Cannula Nasal Cannula 08/12/16 10:23 O2 Delivery Nasal Cannula Intake and Output 08/11/16 08/11/16 08/12/16 15:00 23:00 07:00 Intake Total 480 ml Output Total 800 ml 250 ml Balance 480 ml -800 ml -250 ml JAMES ARRIAGA MD Aug 12, 2016 10:54
[2016-08-12 11:00] VITALS: BP 127/70
[2016-08-12 11:06] LABS: BASO % 0 % (0-3); EOS % 1 % (0-3); HEMATOCRIT 27.5 % (39.0-53.0); HEMOGLOBIN 9.1 g/dL (13.0-17.5); LYMPH # 0.7 x10^3/uL (1.0-4.8); LYMPH % 5 % (24-48); MEAN CORPUSCULAR HEMOGLOBIN 29 pg (25-35); MEAN CORPUSCULAR HGB CONC 33 g/dL (31-37); MEAN CORPUSCULAR VOLUME 88 fL (79-100); MONO % 10 % (0-9); NEUT % 84 % (31-73); PLATELET COUNT 225 x10^3/uL (140-400); RED BLOOD COUNT 3.13 x10^6/uL (4.30-5.70); RED CELL DISTRIBUTION WIDTH 14.1 % (11.5-14.5)
[2016-08-12 13:22] LABS: NEG OBC FOB NEG; POS OBC FOB POS
[2016-08-12 15:00] VITALS: BP 126/60
--- NOTE | 2016-08-12 15:40 | PDOC ---
GI PROGRESS NOTES Date Date/Time DATE: 08/12/16 TIME: 15:37 Subjective Subjective feels allittle better- tolerating CLD- no pain or nausea Objective Vitals Vital Signs Date Time Temp Pulse Resp B/P (MAP) Pulse Ox O2 Delivery O2 Flow Rate FiO2 08/12/16 15:17 Room Air 08/12/16 15:00 99.5 87 20 126/60 (82) 92 Room Air 99.5 08/12/16 11:00 98.4 90 20 127/70 (89) 91 Room Air 98.4 08/12/16 10:23 Nasal Cannula 08/12/16 10:22 Nasal Cannula 08/12/16 08:51 Nasal Cannula 08/12/16 08:50 Room Air 08/12/16 07:50 Room Air 08/12/16 07:00 100.8 85 20 114/61 (78) 94 Room Air 100.8 08/12/16 05:11 98.6 98.6 08/12/16 03:40 96 2.0 08/12/16 03:05 99.1 81 16 122/65 (84) 96 Nasal Cannula 2.0 99.1 08/12/16 03:01 96 2.0 08/12/16 02:30 96 Nasal Cannula 2.0 08/12/16 02:30 96 Room Air 2.0 08/11/16 23:04 98.3 85 16 119/67 (84) 96 Nasal Cannula 2.0 98.3 08/11/16 21:16 92 Room Air 08/11/16 21:16 92 Room Air 08/11/16 19:50 Room Air 08/11/16 19:05 98.8 95 16 111/63 (79) 92 Room Air 98.8 08/11/16 17:15 Room Air 08/11/16 17:13 Room Air Labs Labs Laboratory Tests Test 08/12/16 09:42 08/12/16 12:00 White Blood Count 12.0 x10^3/uL (4.0-11.0) Red Blood Count 3.13 x10^6/uL (4.30-5.70) Hemoglobin 9.1 g/dL (13.0-17.5) Hematocrit 27.5 % (39.0-53.0) Mean Corpuscular Volume 88 fL (79-100) Mean Corpuscular Hemoglobin 29 pg (25-35) Mean Corpuscular Hemoglobin Concent 33 g/dL (31-37) Red Cell Distribution Width 14.1 % (11.5-14.5) Platelet Count 225 x10^3/uL (140-400) Neutrophils (%) (Auto) 84 % (31-73) Lymphocytes (%) (Auto) 5 % (24-48) Monocytes (%) (Auto) 10 % (0-9) Eosinophils (%) (Auto) 1 % (0-3) Basophils (%) (Auto) 0 % (0-3) Neutrophils # (Auto) 10.1 x10^3uL (1.8-7.7) Lymphocytes # (Auto) 0.7 x10^3/uL (1.0-4.8) Monocytes # (Auto) 1.2 x10^3/uL (0.0-1.1) Eosinophils # (Auto) 0.1 x10^3/uL (0.0-0.7) Basophils # (Auto) 0.0 x10^3/uL (0.0-0.2) Stool Occult Blood Positive (NEG) Physical Exam Physical Exam low grade fever chest- few rhonchi abd- soft non tender Assessment Assessment GAStric bleed- s/p embolization-- stable clinically at this point History of esophageal cancer with resection and gastric pullup Problems: Plan Plan slow advance diet- try FLD today COREY BAILEY MD Aug 12, 2016 15:40
[2016-08-12 19:15] VITALS: BP 131/66
[2016-08-12 23:00] VITALS: BP 122/70
[2016-08-13] MEDS: MEROPENEM 500 MG in IV NORMAL SALINE 50ML 50 ML IV SCH ×2 (00:16→05:55)
[2016-08-13 03:19] VITALS: BP 133/70
[2016-08-13] MEDS: fentaNYL PF VIAL 100 MCG/2 ML VIAL IV PRN ×3 (03:44→21:30)
[2016-08-13] MEDS: IV NORMAL SALINE 1000ML BAG 1,000 ML IV SCH ×2 (03:45→16:58)
[2016-08-13] MEDS: HYDROcodone/APAP 5/325MG 1 TAB TABLET PO PRN ×2 (03:45→10:19)
[2016-08-13 05:11] LABS: BASO % 0 % (0-3); EOS % 2 % (0-3); HEMATOCRIT 24.7 % (39.0-53.0); HEMOGLOBIN 8.6 g/dL (13.0-17.5); LYMPH # 0.7 x10^3/uL (1.0-4.8); LYMPH % 6 % (24-48); MEAN CORPUSCULAR HEMOGLOBIN 30 pg (25-35); MEAN CORPUSCULAR HGB CONC 35 g/dL (31-37); MEAN CORPUSCULAR VOLUME 86 fL (79-100); MONO % 14 % (0-9); NEUT % 78 % (31-73); PLATELET COUNT 224 x10^3/uL (140-400); RED BLOOD COUNT 2.89 x10^6/uL (4.30-5.70); WHITE BLOOD COUNT 10.6 x10^3/uL (4.0-11.0)
[2016-08-13] MEDS: chlorproMAZINE 25 MG TABLET PO PRN (05:59)
[2016-08-13] MEDS: PANTOPRAZOLE IV PUSH 40 MG VIAL. IVP SCH ×2 (06:38→08:52)
[2016-08-13 07:00] VITALS: BP 103/57
--- NOTE | 2016-08-13 08:19 | PDOC ---
Infectious Disease Note Subjective Subjective feeling good, no complaints ROS ROS GEN: Denies fevers, chills, sweats HEENT: Denies blurred vision, sore throat CV: Denies chest pain RESP: Denies shortness of air, cough GI: Denies n/v/d NEURO: Denies confusion, dizziness MSK: Denies weakness, joint pain/swelling Vital Sign Vital Signs Vital Signs Date Time Temp Pulse Resp B/P (MAP) Pulse Ox O2 Delivery O2 Flow Rate FiO2 08/13/16 07:00 97.4 89 20 103/57 (72) 94 Nasal Cannula 2.0 97.4 Physical Exam PHYSICAL EXAM GENERAL: NAD, Alert HEENT: PERRL, OC/OP NECK: Supple, no JVD, no LN LUNGS: Clear HEART: S1S2, no gallop, no murmur ABD: Soft, NT, no organomegaly, no rebound EXT: No edema, no cyanosis DAIRY MANAGEMENT SPECIALIST: Alert, oriented x 3, no focal neurologic deficit SKIN: No rash IV: ok Labs Lab Laboratory Tests Test 08/12/16 09:42 08/12/16 12:00 08/13/16 04:20 White Blood Count 12.0 x10^3/uL (4.0-11.0) 10.6 x10^3/uL (4.0-11.0) Red Blood Count 3.13 x10^6/uL (4.30-5.70) 2.89 x10^6/uL (4.30-5.70) Hemoglobin 9.1 g/dL (13.0-17.5) 8.6 g/dL (13.0-17.5) Hematocrit 27.5 % (39.0-53.0) 24.7 % (39.0-53.0) Mean Corpuscular Volume 88 fL (79-100) 86 fL (79-100) Mean Corpuscular Hemoglobin 29 pg (25-35) 30 pg (25-35) Mean Corpuscular Hemoglobin Concent 33 g/dL (31-37) 35 g/dL (31-37) Red Cell Distribution Width 14.1 % (11.5-14.5) 14.0 % (11.5-14.5) Platelet Count 225 x10^3/uL (140-400) 224 x10^3/uL (140-400) Neutrophils (%) (Auto) 84 % (31-73) 78 % (31-73) Lymphocytes (%) (Auto) 5 % (24-48) 6 % (24-48) Monocytes (%) (Auto) 10 % (0-9) 14 % (0-9) Eosinophils (%) (Auto) 1 % (0-3) 2 % (0-3) Basophils (%) (Auto) 0 % (0-3) 0 % (0-3) Neutrophils # (Auto) 10.1 x10^3uL (1.8-7.7) 8.3 x10^3uL (1.8-7.7) Lymphocytes # (Auto) 0.7 x10^3/uL (1.0-4.8) 0.7 x10^3/uL (1.0-4.8) Monocytes # (Auto) 1.2 x10^3/uL (0.0-1.1) 1.5 x10^3/uL (0.0-1.1) Eosinophils # (Auto) 0.1 x10^3/uL (0.0-0.7) 0.2 x10^3/uL (0.0-0.7) Basophils # (Auto) 0.0 x10^3/uL (0.0-0.2) 0.0 x10^3/uL (0.0-0.2) Stool Occult Blood Positive (NEG) Erythrocyte Sedimentation Rate 83 (0-15) Objective Assessment Fever, improved Leukocytosis, improved Colitis on abd/pelvis CT PCN allergy-joint pains Anemia Atelectasis GI bleed s/p embolization gastric artery, 08/08 Plan Plan of Care change meropenem to po vantin Monitor WBC, Cr and temp Panculture neg so far pt/ot ARTHUR CUNHA MD Aug 13, 2016 08:19
[2016-08-13] MEDS: TAMSULOSIN 0.4 MG CAP.ER.24H. PO SCH ×2 (08:51→21:29)
[2016-08-13] MEDS: LIDOCAINE (700MG/PATCH) PATCH. TD SCH (08:55)
[2016-08-13] MEDS: CEFPODOXIME PROXETIL 100 MG TABLET. PO SCH ×2 (08:57→21:30)
[2016-08-13 11:00] VITALS: BP 111/60
--- NOTE | 2016-08-13 11:12 | PDOC ---
Subjective: Subjective: Tolerating full liquids. Reports 1 dark stool since admission, thinks yesterday. Right-sided pain is better. Objective: Vital Signs: Vital Signs Date Time Temp Pulse Resp B/P (MAP) Pulse Ox O2 Delivery O2 Flow Rate FiO2 08/13/16 10:19 20 96 Nasal Cannula 08/13/16 08:00 2.0 08/13/16 07:00 97.4 89 103/57 (72) 97.4 Labs: Laboratory Tests Test 08/12/16 12:00 08/13/16 04:20 Stool Occult Blood Positive White Blood Count 10.6 x10^3/uL Red Blood Count 2.89 x10^6/uL Hemoglobin 8.6 g/dL Hematocrit 24.7 % Mean Corpuscular Volume 86 fL Mean Corpuscular Hemoglobin 30 pg Mean Corpuscular Hemoglobin Concent 35 g/dL Red Cell Distribution Width 14.0 % Platelet Count 224 x10^3/uL Neutrophils (%) (Auto) 78 % Lymphocytes (%) (Auto) 6 % Monocytes (%) (Auto) 14 % Eosinophils (%) (Auto) 2 % Basophils (%) (Auto) 0 % Neutrophils # (Auto) 8.3 x10^3uL Lymphocytes # (Auto) 0.7 x10^3/uL Monocytes # (Auto) 1.5 x10^3/uL Eosinophils # (Auto) 0.2 x10^3/uL Basophils # (Auto) 0.0 x10^3/uL Erythrocyte Sedimentation Rate 83 PE: GEN: NAD, looks better LUNGS: clear anteriorly HEART: RRR ABD: S/ND/NT NEURO/PSYCH: A & O 3 A/P: Hematemesis - no recurrence -s/p EGD w/ adherent clot, IR embol of inferior gastric artery -reports dark stool over the weekend (hemoccult + 08/12) Right-sided pain - improving Abnormal CT -right atelectasis vs pneumonia, diverticulitis/colitis left colon -on atbx per ID; leukocytosis/fever/tachycardia resolved Anemia -Hgb dropped from admission, now improved to 8-9s s/p transfusion 1 unit pRBCs -had colonoscopy last year w/ Dr. Celaya, h/o diverticulosis H/o esophageal cancer s/p gastric pull-up, chemo/rad -- Tolerating full liquids w/ stable Hgb. Note dark stool yesterday (the first stool he's had since admission). Will change to PO PPI. Continue same diet for now, will review w/ Dr. Varner. KRISTIN REDMOND Aug 13, 2016 11:12
--- NOTE | 2016-08-13 11:15 | PDOC ---
PROGRESS NOTES Chief Complaint Chief Complaint 1. Hematemesis -s/p EGD w/ adherent clot, IR embol of inferior gastric artery 2. Acute blood loss anemia, possible on top of chronic anemia of hx malignancy 3. esophageal cancer s/p gastric pull up w/ chemo/radiation, IA, CAD s/p stent, COPD, HLD, partial thyroidectomy, cholecystectomy, PEG tube placement/removal 4. FEVERS, LEUKOCYTOSIS, R rib pain History of Present Illness History of Present Illness fevers resolved BUt dropped hgb again 8.6 from 9.,1 NOnovert bleeding COntinues to have R rib pain, site of R LL pNA ALso has lidodem patch already PLAN Celebrex 200 BID - pain pleuritic from R sided PNA PO vantin on dc per iD Hgb/Hct nick Tolerating full liquid so far Dw dtr over phone to keep 1 more night make sure not dropping bec he did drop hgb few days ago needing BT BUt cleared from ID to go home Vitals Vitals Vital Signs Date Time Temp Pulse Resp B/P (MAP) Pulse Ox O2 Delivery O2 Flow Rate FiO2 08/13/16 10:19 20 96 Nasal Cannula 08/13/16 08:00 2.0 08/13/16 07:00 97.4 89 103/57 (72) 97.4 Physical Exam General: Alert, Oriented X3, Cooperative, No acute distress Heart: Regular rate Lungs: Clear Abdomen: Normal bowel sounds, Soft, No tenderness, No hepatosplenomegaly, No masses Extremities: No clubbing, No cyanosis, No edema, Normal pulses, No tenderness/ swelling Skin: No rashes, No breakdown, No significant lesion Labs LABS Laboratory Tests Test 08/12/16 12:00 08/13/16 04:20 Stool Occult Blood Positive (NEG) White Blood Count 10.6 x10^3/uL (4.0-11.0) Red Blood Count 2.89 x10^6/uL (4.30-5.70) Hemoglobin 8.6 g/dL (13.0-17.5) Hematocrit 24.7 % (39.0-53.0) Mean Corpuscular Volume 86 fL (79-100) Mean Corpuscular Hemoglobin 30 pg (25-35) Mean Corpuscular Hemoglobin Concent 35 g/dL (31-37) Red Cell Distribution Width 14.0 % (11.5-14.5) Platelet Count 224 x10^3/uL (140-400) Neutrophils (%) (Auto) 78 % (31-73) Lymphocytes (%) (Auto) 6 % (24-48) Monocytes (%) (Auto) 14 % (0-9) Eosinophils (%) (Auto) 2 % (0-3) Basophils (%) (Auto) 0 % (0-3) Neutrophils # (Auto) 8.3 x10^3uL (1.8-7.7) Lymphocytes # (Auto) 0.7 x10^3/uL (1.0-4.8) Monocytes # (Auto) 1.5 x10^3/uL (0.0-1.1) Eosinophils # (Auto) 0.2 x10^3/uL (0.0-0.7) Basophils # (Auto) 0.0 x10^3/uL (0.0-0.2) Erythrocyte Sedimentation Rate 83 (0-15) Review of Systems Review of Systems R sided rib pain, no cough, no fever, no soa, o diarrhea, abd pain Assessment and Plan Assessmemt and Plan Problems Medical Problems: (1) Acute GI bleeding Status: Acute (2) History of esophageal cancer Status: Acute (3) Hyperglycemia Status: Acute (4) Mild protein malnutrition Status: Acute (5) Peptic ulcer disease Status: Acute Problems: Comment Review of Relevant I have reviewed the following items indigo (where applicable) has been applied. Labs Laboratory Tests Test 08/11/16 14:00 08/12/16 09:42 08/12/16 12:00 08/13/16 04:20 Hemoglobin 8.5 g/dL (13.0-17.5) 9.1 g/dL (13.0-17.5) 8.6 g/dL (13.0-17.5) Hematocrit 25.6 % (39.0-53.0) 27.5 % (39.0-53.0) 24.7 % (39.0-53.0) Mean Corpuscular Hemoglobin Concent 33 g/dL (31-37) 33 g/dL (31-37) 35 g/dL (31-37) White Blood Count 12.0 x10^3/uL (4.0-11.0) 10.6 x10^3/uL (4.0-11.0) Red Blood Count 3.13 x10^6/uL (4.30-5.70) 2.89 x10^6/uL (4.30-5.70) Mean Corpuscular Volume 88 fL (79-100) 86 fL (79-100) Mean Corpuscular Hemoglobin 29 pg (25-35) 30 pg (25-35) Red Cell Distribution Width 14.1 % (11.5-14.5) 14.0 % (11.5-14.5) Platelet Count 225 x10^3/uL (140-400) 224 x10^3/uL (140-400) Neutrophils (%) (Auto) 84 % (31-73) 78 % (31-73) Lymphocytes (%) (Auto) 5 % (24-48) 6 % (24-48) Monocytes (%) (Auto) 10 % (0-9) 14 % (0-9) Eosinophils (%) (Auto) 1 % (0-3) 2 % (0-3) Basophils (%) (Auto) 0 % (0-3) 0 % (0-3) Neutrophils # (Auto) 10.1 x10^3uL (1.8-7.7) 8.3 x10^3uL (1.8-7.7) Lymphocytes # (Auto) 0.7 x10^3/uL (1.0-4.8) 0.7 x10^3/uL (1.0-4.8) Monocytes # (Auto) 1.2 x10^3/uL (0.0-1.1) 1.5 x10^3/uL (0.0-1.1) Eosinophils # (Auto) 0.1 x10^3/uL (0.0-0.7) 0.2 x10^3/uL (0.0-0.7) Basophils # (Auto) 0.0 x10^3/uL (0.0-0.2) 0.0 x10^3/uL (0.0-0.2) Stool Occult Blood Positive (NEG) Erythrocyte Sedimentation Rate 83 (0-15) Laboratory Tests Test 08/12/16 12:00 08/13/16 04:20 Stool Occult Blood Positive (NEG) White Blood Count 10.6 x10^3/uL (4.0-11.0) Red Blood Count 2.89 x10^6/uL (4.30-5.70) Hemoglobin 8.6 g/dL (13.0-17.5) Hematocrit 24.7 % (39.0-53.0) Mean Corpuscular Volume 86 fL (79-100) Mean Corpuscular Hemoglobin 30 pg (25-35) Mean Corpuscular Hemoglobin Concent 35 g/dL (31-37) Red Cell Distribution Width 14.0 % (11.5-14.5) Platelet Count 224 x10^3/uL (140-400) Neutrophils (%) (Auto) 78 % (31-73) Lymphocytes (%) (Auto) 6 % (24-48) Monocytes (%) (Auto) 14 % (0-9) Eosinophils (%) (Auto) 2 % (0-3) Basophils (%) (Auto) 0 % (0-3) Neutrophils # (Auto) 8.3 x10^3uL (1.8-7.7) Lymphocytes # (Auto) 0.7 x10^3/uL (1.0-4.8) Monocytes # (Auto) 1.5 x10^3/uL (0.0-1.1) Eosinophils # (Auto) 0.2 x10^3/uL (0.0-0.7) Basophils # (Auto) 0.0 x10^3/uL (0.0-0.2) Erythrocyte Sedimentation Rate 83 (0-15) Microbiology 08/10/16 Blood Culture - Preliminary, Resulted NO GROWTH AFTER 2 DAYS 08/12/16 Gram Stain - Final, Complete Medications Current Medications Fentanyl Citrate (Fentanyl 2ml Vial) 50 mcg PRN Q15MIN PRN IV PAIN GREATER THAN 3/10; Start 08/08/16 at 02:00; Stop 08/08/16 at 05:00; Status DC Sodium Chloride 1,000 ml @ 1,000 mls/hr Q1H IV Last administered on 08/08/16 02:19; Start 08/08/16 at 02:15; Stop 08/08/16 at 03:14; Status DC Ondansetron HCl (Zofran) 4 mg 1X ONCE IV Last administered on 08/08/16 02:18 ; Start 08/08/16 at 02:15; Stop 08/08/16 at 02:16; Status DC Pantoprazole Sodium (Protonix Vial) 40 mg 1X ONCE IVP Last administered on 02:18; Start 08/08/16 at 02:15; Stop 08/08/16 at 02:16; Status DC Ondansetron HCl (Zofran) 4 mg PRN Q8HRS PRN IV NAUSEA/VOMITING; Start 08/08/16 at 03:30; Stop 08/08/16 at 09:38; Status DC Fentanyl Citrate (Fentanyl 2ml Vial) 50 mcg PRN Q2HR PRN IV SEVERE PAIN Last administered on 08/09/16 02:58; Start 08/08/16 at 03:30; Stop 08/09/16 at 03:29; Status DC Sodium Chloride 1,000 ml @ 100 mls/hr Q10H IV Last administered on 08/08/16 18:25; Start 08/08/16 at 03:26; Stop 08/09/16 at 03:25; Status DC Pantoprazole Sodium 80 mg/ Sodium Chloride 100 ml @ 10 mls/hr Q10H IV Last administered on 08/08/16 16:38; Start 08/08/16 at 03:30; Stop 08/09/16 at 03:29 ; Status DC Ondansetron HCl (Zofran) 4 mg PRN Q6HRS PRN IV NAUSEA/VOMITING; Start 08/08/16 at 09:36; Stop 08/09/16 at 09:35; Status DC Midazolam HCl (Versed) 2 mg PRN 1X PRN IV PRIOR TO PROCEDURE; Start 08/08/16 at 12:45; Stop 08/08/16 at 18:00; Status DC Fentanyl Citrate (Fentanyl 2ml Vial) 25 mcg PRN Q5MIN PRN IV X 2 DOSES FOR PAIN ; Start 08/08/16 at 12:45; Stop 08/08/16 at 18:00; Status DC Fentanyl Citrate (Fentanyl 2ml Vial) 50 mcg PRN Q5MIN PRN IV X 2 DOSES FOR PAIN ; Start 08/08/16 at 12:45; Stop 08/08/16 at 18:00; Status DC Ringer's Solution 1,000 ml @ 125 mls/hr Q8H IV Last administered on 08/08/16 12:52; Start 08/08/16 at 12:45; Stop 08/09/16 at 00:44; Status DC Lidocaine HCl 2 ml 1X PRN PRN ID IV START; Start 08/08/16 at 12:45; Stop at 18:00; Status DC Propofol 20 ml @ As Directed STK-MED ONCE IV ; Start 08/08/16 at 13:17; Stop at 13:18; Status DC Lidocaine HCl (Lidocaine Pf 2% Vial) 5 ml STK-MED ONCE .ROUTE ; Start 08/08/16 at 13:17; Stop 08/08/16 at 13:18; Status DC Propofol 20 ml @ As Directed STK-MED ONCE IV ; Start 08/08/16 at 13:41; Stop at 13:42; Status DC Iohexol (Omnipaque 300 Mg/ml) 100 ml STK-MED ONCE .ROUTE ; Start 08/08/16 at 14: 46; Stop 08/08/16 at 14:47; Status DC Lidocaine/Sodium Bicarbonate (Buffered Lidocaine 1%) 20 ml STK-MED ONCE IJ ; Start 08/08/16 at 14:47; Stop 08/08/16 at 14:48; Status DC Heparin Sodium/ Sodium Chloride 1,500 ml @ As Directed STK-MED ONCE .ROUTE ; Start 08/08/16 at 14:47; Stop 08/08/16 at 14:48; Status DC Midazolam HCl (Versed) 5 mg STK-MED ONCE .ROUTE ; Start 08/08/16 at 15:31; Stop 08/08/16 at 15:32; Status DC Fentanyl Citrate (Fentanyl 5ml Vial) 250 mcg STK-MED ONCE .ROUTE ; Start at 15:31; Stop 08/08/16 at 15:32; Status DC Nitroglycerin (Nitroglycerin) 200 mcg 1X ONCE IART Last administered on 17:03; Start 08/08/16 at 16:00; Stop 08/08/16 at 16:03; Status DC Heparin Sodium/ Sodium Chloride 1,000 unit 1X ONCE IART Last administered on 17:03; Start 08/08/16 at 16:00; Stop 08/08/16 at 16:03; Status DC Lidocaine/Sodium Bicarbonate (Buffered Lidocaine 1%) 20 ml 1X ONCE IJ Last administered on 08/08/16 17:04; Start 08/08/16 at 16:00; Stop 08/08/16 at 16:03 ; Status DC Midazolam HCl (Versed) 5 mg 1X ONCE IV Last administered on 08/08/16 17:04; Start 08/08/16 at 16:00; Stop 08/08/16 at 16:03; Status DC Fentanyl Citrate (Fentanyl 5ml Vial) 250 mcg 1X ONCE IV Last administered on 17:04; Start 08/08/16 at 16:00; Stop 08/08/16 at 16:03; Status DC Iohexol (Omnipaque 300 Mg/ml) 100 ml 1X ONCE IART Last administered on 17:03; Start 08/08/16 at 16:00; Stop 08/08/16 at 16:03; Status DC Info (Do NOT chart on this entry -- for MONITORING) 1 each PRN DAILY PRN MC SEE COMMENTS; Start 08/08/16 at 16:15; Stop 08/10/16 at 16:14; Status DC Gelatin (Gelfoam Size 12-7mm) 1 each STK-MED ONCE .ROUTE ; Start 08/08/16 at 16 :20; Stop 08/08/16 at 16:21; Status DC Tamsulosin HCl (Flomax) 0.4 mg QHS PO Last administered on 08/09/16 21:15; Start 08/08/16 at 21:30; Stop 08/10/16 at 07:10; Status DC Fentanyl Citrate (Fentanyl 2ml Vial) 50 mcg PRN Q2HR PRN IV PAIN Last administered on 08/13/16 10:18; Start 08/09/16 at 07:15 Acetaminophen/ Hydrocodone Bitart (Lortab 5/325) 1 tab PRN Q6HRS PRN PO PAIN Last administered on 08/13/16 10:19; Start 08/09/16 at 07:15 Pantoprazole Sodium (Protonix Vial) 40 mg DAILYAC IVP Last administered on 08:52; Start 08/09/16 at 10:00; Stop 08/13/16 at 11:11; Status DC Sodium Chloride 1,000 ml @ 100 mls/hr Q10H IV Last administered on 08/13/16 03 :45; Start 08/09/16 at 09:45 Acetaminophen (Tylenol) 650 mg PRN Q6HRS PRN PO temp Last administered on 05:16; Start 08/09/16 at 09:45 Iohexol (Omnipaque 300 Mg/ml) 75 ml 1X ONCE IV Last administered on 08/09/16 10:13; Start 08/09/16 at 09:45; Stop 08/09/16 at 09:47; Status DC Levofloxacin/ Dextrose 100 ml @ 100 mls/hr Q24H IV Last administered on 15:00; Start 08/09/16 at 14:00; Stop 08/11/16 at 12:49; Status DC Metronidazole 100 ml @ 100 mls/hr Q12HR IV Last administered on 08/11/16 11:34 ; Start 08/09/16 at 18:00; Stop 08/11/16 at 12:49; Status DC Tamsulosin HCl (Flomax) 0.4 mg BID PO Last administered on 08/13/16 08:51; Start 08/10/16 at 09:00 Lidocaine (Lidoderm) 1 patch DAILY TD Last administered on 08/10/16 13:45; Start 08/10/16 at 13:15 Chlorpromazine HCl (Thorazine) 25 mg PRN Q6HRS PRN PO HICCUPS Last administered on 08/13/16 05:59; Start 08/10/16 at 14:45 Diphenhydramine HCl (Benadryl) 25 mg 1X ONCE PO Last administered on 08/11/16 08:17; Start 08/11/16 at 05:15; Stop 08/11/16 at 05:16; Status DC Meropenem 500 mg/ Sodium Chloride 50 ml @ 100 mls/hr Q8HRS IV Last administered on 08/12/16 13:32; Start 08/11/16 at 14:00; Stop 08/12/16 at 14:59; Status DC Meropenem 500 mg/ Sodium Chloride 50 ml @ 100 mls/hr Q6HRS IV Last administered on 08/13/16 05:55; Start 08/12/16 at 19:00; Stop 08/13/16 at 08:19; Status DC Cefpodoxime Proxetil (Vantin) 200 mg BID PO Last administered on 08/13/16t 08:57 ; Start 08/13/16 at 09:00 Pantoprazole Sodium (Protonix) 40 mg DAILYAC PO ; Start 08/14/16 at 07:30; Status UNV Active Scripts Active Pantoprazole Sodium 40 Mg Tablet.dr 40 Mg PO BID Reported Metamucil (Psyllium Husk) 0.52 Gm Capsule 0.52 Gm PO PRN DAILY PRN Hydrochlorothiazide Tablet (Hydrochlorothiazide) 12.5 Mg Tablet 25 Mg PO DAILY Aspir 81 (Aspirin) 81 Mg Tablet.dr 1 Tab PO DAILY Maalox Maximum Strength Susp (Mag Hydrox/Al Hydrox/Simeth) 355 Ml Oral.susp 355 Ml PO DAILY Omeprazole 20 Mg Capsule.dr 1 Cap PO DAILYWSUP Potassium Chloride 10 Meq Tab.er.prt 10 Meq PO DAILY Tamsulosin Hcl 0.4 Mg Cap.er.24h 0.4 Mg PO B-12 (Cyanocobalamin (Vitamin B-12)) 1,000 Mcg Tablet.er 1,000 Mcg PO Metoprolol Tartrate 25 Mg Tablet 25 Mg PO BID Magnesium (Magnesium Oxide) 400 Mg Capsule 400 Mg PO Folic Acid 0.8 Mg Tablet 0.8 Mg PO D3 + K2 Dots 1,000 Units Tab (Vitamin D3/Vitamin K2) 1 Each Tab.rapdis 1 Each PO Simvastatin 40 Mg Tablet 40 Mg PO QHS Nitrostat (Nitroglycerin) 0.4 Mg Tab.subl 0.4 Mg SL Vitals/I & O Vital Sign - Last 24 Hours 08/12/16 08/12/16 08/12/16 08/12/16 15:00 15:17 15:37 19:15 Temp 99.5 99.5 99.5 99.5 Pulse 87 102 Resp 20 18 B/P (MAP) 126/60 (82) 131/66 (87) Pulse Ox 92 94 O2 Delivery Room Air Room Air Room Air Nasal Cannula O2 Flow Rate 2.0 08/12/16 08/12/16 08/12/16 08/12/16 20:00 21:28 21:28 23:00 Temp 99.3 99.3 Pulse 96 Resp 18 B/P (MAP) 122/70 (87) Pulse Ox 94 94 94 O2 Delivery Room Air Nasal Cannula Nasal Cannula Room Air O2 Flow Rate 2.0 2.0 2.0 08/13/16 08/13/16 08/13/16 08/13/16 03:19 03:44 03:45 04:16 Temp 99.1 99.1 Pulse 91 Resp 18 B/P (MAP) 133/70 (91) Pulse Ox 94 94 94 94 O2 Delivery Nasal Cannula Nasal Cannula Nasal Cannula Nasal Cannula O2 Flow Rate 2.0 2.0 2.0 2.0 08/13/16 08/13/16 08/13/16 08/13/16 04:47 07:00 08:00 10:18 Temp 97.4 97.4 Pulse 89 Resp 20 20 B/P (MAP) 103/57 (72) Pulse Ox 94 94 94 O2 Delivery Nasal Cannula Nasal Cannula Nasal Cannula Room Air O2 Flow Rate 2.0 2.0 2.0 08/13/16 10:19 Resp 20 Pulse Ox 96 O2 Delivery Nasal Cannula Intake and Output 08/12/16 08/12/16 08/13/16 15:00 23:00 07:00 Intake Total 1430 ml 1410 ml Output Total 950 ml 850 ml Balance 480 ml 560 ml JAMES ARRIAGA MD Aug 13, 2016 11:14
[2016-08-13] MEDS: CELECOXIB 200 MG CAPSULE. PO SCH ×2 (12:08→21:29)
[2016-08-13 15:00] VITALS: BP 120/66
[2016-08-13 19:50] VITALS: BP 121/66
[2016-08-13 23:04] VITALS: BP 140/69
[2016-08-14 03:07] VITALS: BP 144/73
[2016-08-14] MEDS: IV NORMAL SALINE 1000ML BAG 1,000 ML IV SCH (03:17)
[2016-08-14 05:27] LABS: HEMATOCRIT 26.2 % (39.0-53.0); HEMOGLOBIN 8.9 g/dL (13.0-17.5)
[2016-08-14 05:52] LABS: CALCIUM 8.1 mg/dL (8.5-10.1); CREATININE 0.8 mg/dL (0.7-1.3); GFR 94.8; POTASSIUM 3.5 mmol/L (3.5-5.1)
[2016-08-14 07:00] VITALS: BP 139/74
[2016-08-14] MEDS ORDERED: PANTOPRAZOLE 40 MG TABLET.DR. PO SCH (07:30)
--- NOTE | 2016-08-14 08:25 | PDOC ---
Infectious Disease Note Subjective Subjective says not feeling well, sob, though o2 sat normal on RA ROS ROS GEN: Denies fevers, chills, sweats HEENT: Denies blurred vision, sore throat CV: Denies chest pain GI: Denies n/v/d NEURO: Denies confusion, dizziness MSK: Denies weakness, joint pain/swelling Vital Sign Vital Signs Vital Signs Date Time Temp Pulse Resp B/P (MAP) Pulse Ox O2 Delivery O2 Flow Rate FiO2 08/14/16 07:00 98.8 92 20 139/74 (95) 91 Room Air 98.8 08/13/16 23:04 2.0 Physical Exam PHYSICAL EXAM GENERAL: NAD, Alert HEENT: PERRL, OC/OP NECK: Supple, no JVD, no LN LUNGS: Clear HEART: S1S2, no gallop, no murmur ABD: Soft, NT, no organomegaly, no rebound EXT: No edema, no cyanosis WAREHOUSE MANAGER: Alert, oriented x 3, no focal neurologic deficit SKIN: No rash IV: ok Labs Lab Laboratory Tests Test 08/14/16 04:45 Hemoglobin 8.9 g/dL (13.0-17.5) Hematocrit 26.2 % (39.0-53.0) Mean Corpuscular Hemoglobin Concent 34 g/dL (31-37) Sodium Level 141 mmol/L (136-145) Potassium Level 3.5 mmol/L (3.5-5.1) Chloride Level 108 mmol/L (98-107) Carbon Dioxide Level 28 mmol/L (21-32) Anion Gap 5 (6-14) Blood Urea Nitrogen 8 mg/dL (8-26) Creatinine 0.8 mg/dL (0.7-1.3) Estimated GFR (Cockcroft-Gault) 94.8 Glucose Level 108 mg/dL (70-99) Calcium Level 8.1 mg/dL (8.5-10.1) Objective Assessment Fever, improved Leukocytosis, improved Colitis on abd/pelvis CT PCN allergy-joint pains Anemia Atelectasis GI bleed s/p embolization gastric artery, 08/08 Plan Plan of Care po vantin Monitor WBC, Cr and temp Panculture neg so far pt/ot d/c ARTHUR Kwon MD Aug 14, 2016 08:25
[2016-08-14] MEDS: LIDOCAINE (700MG/PATCH) PATCH. TD SCH (09:00)
[2016-08-14] MEDS: CELECOXIB 200 MG CAPSULE. PO SCH (09:12)
[2016-08-14] MEDS: TAMSULOSIN 0.4 MG CAP.ER.24H. PO SCH (09:12)
[2016-08-14] MEDS: CEFPODOXIME PROXETIL 100 MG TABLET. PO SCH (09:13)
[2016-08-14] MEDS ORDERED: HYDROcodone/APAP 5/325MG 1 TAB TABLET PO PRN (09:15)
--- NOTE | 2016-08-14 09:23 | PDOC ---
PROGRESS NOTES Chief Complaint Chief Complaint Hematemesis ASSESSMENT AND PLAN: 1. UGIB: s/p EGD on 08/[address] Jaimes, with findings of adherent clot; IR embolization of inf gastric artery same day 2. Anemia of acute blood loss: s/p PRBC x2, now stable. monitor 3. Anemia of chronic dz: normo/normo anemia at admit; hx gastric CA s/p chemo/ rad 4. SIRS: fevers, leukocytosis, rib pain with ? PNA on CXR, but no bacterial infection by cultures. appreciate Dr Pineda's input. currently on vantin (D#6 of total Abx rx) 5. Colitis/diverticulitis: noted on initial CT. clinically stable. 6. Pain control: stop fentanyl, celebrex (w/recent ulcer); norco PRN, lidocaine patch 7. Hx gastric CA s/p chemo/rad 8. CAD: hx UT and PCI/stent. no acute issues. cont secondary prevention meds 9. COPD: no acute issues, not requiring inhalers.nebs 10. Dispo: home when cleared by GI History of Present Illness History of Present Illness feels not quite as perky today, but denies any focal pain. feels ready to go home Vitals Vitals Vital Signs Date Time Temp Pulse Resp B/P (MAP) Pulse Ox O2 Delivery O2 Flow Rate FiO2 08/14/16 07:00 98.8 92 20 139/74 (95) 91 Room Air 98.8 08/13/16 23:04 2.0 Physical Exam General: Alert, Oriented X3, Cooperative, No acute distress Heart: Regular rate Lungs: Clear Abdomen: Normal bowel sounds, Soft, No tenderness Extremities: No clubbing, No edema Skin: No rashes Labs LABS Laboratory Tests Test 08/14/16 04:45 Hemoglobin 8.9 g/dL (13.0-17.5) Hematocrit 26.2 % (39.0-53.0) Mean Corpuscular Hemoglobin Concent 34 g/dL (31-37) Sodium Level 141 mmol/L (136-145) Potassium Level 3.5 mmol/L (3.5-5.1) Chloride Level 108 mmol/L (98-107) Carbon Dioxide Level 28 mmol/L (21-32) Anion Gap 5 (6-14) Blood Urea Nitrogen 8 mg/dL (8-26) Creatinine 0.8 mg/dL (0.7-1.3) Estimated GFR (Cockcroft-Gault) 94.8 Glucose Level 108 mg/dL (70-99) Calcium Level 8.1 mg/dL (8.5-10.1) KYLAH TERRY MD Aug 14, 2016 09:23
[2016-08-14 11:00] VITALS: BP 146/73
[2016-08-14] MEDS ORDERED: TAMS0.4C97 PO (11:02)
[2016-08-14] MEDS ORDERED: HYDR-2758 PO (11:02)
[2016-08-14] MEDS ORDERED: CEFP100T PO (11:02)
--- NOTE | 2016-08-14 11:04 | PDOC ---
Subjective: Subjective: "Feeling better than I was this morning." No abd pain. Had a stool that was "dark but not black." Tolerating diet. Some right rib pain w/ deep breaths, better overall. Feels ready to DC. Objective: Objective: Reviewed other notes. Per RN - possible DC today. Vital Signs: Vital Signs Date Time Temp Pulse Resp B/P (MAP) Pulse Ox O2 Delivery O2 Flow Rate FiO2 08/14/16 07:50 Room Air 08/14/16 07:00 98.8 92 20 139/74 (95) 91 98.8 08/13/16 23:04 2.0 Labs: Laboratory Tests Test 08/14/16 04:45 Hemoglobin 8.9 g/dL Hematocrit 26.2 % Mean Corpuscular Hemoglobin Concent 34 g/dL Sodium Level 141 mmol/L Potassium Level 3.5 mmol/L Chloride Level 108 mmol/L Carbon Dioxide Level 28 mmol/L Anion Gap 5 Blood Urea Nitrogen 8 mg/dL Creatinine 0.8 mg/dL Estimated GFR (Cockcroft-Gault) 94.8 Glucose Level 108 mg/dL Calcium Level 8.1 mg/dL PE: GEN: NAD LUNGS: clear anteriorly HEART: RRR ABD: NABS, S/ND/NT NEURO/PSYCH: A & O 3 A/P: Hematemesis - no recurrence -s/p EGD and IR embolization Anemia - better -s/p transfusion 1 unit pRBCs 08/11 -had colonoscopy last year w/ Dr. Celaya, h/o diverticulosis H/o esophageal cancer s/p gastric pull-up, chemo/rad Fever, leukocytosis - resolved -possible pneumonia, colitis on CT -atbx per ID -- Tolerating GI soft w/o further bleeding. Will advance to regular diet. DC per primary. Continue PPI. KRISTIN REDMOND Aug 14, 2016 11:04
--- NOTE | 2016-08-15 03:07 | DS ---
DATE OF DISCHARGE: 08/14/2016 CHIEF COMPLAINT: Hematemesis. HOSPITAL COURSE: The patient is a 75-year-old gentleman who presented to the Emergency Room with hematemesis. He underwent urgent EGD with findings of adherent clot at bleeding site. VIR embolization of the inferior gastric artery was undertaken the same day. He did receive 2 units of packed red blood cells with stabilization of his hemoglobin. Underlying anemia of chronic disease was suspected as well. Symptoms of SIRS at presentation essentially resolved. The patient had complained of rib pain with questionable PNA on chest x-ray. Cultures, both blood as well as sputum were negative. Nevertheless, he initially had been covered with IV and later with p.o. vancomycin and antibiotics with improvement in his respiratory status. Pain was addressed with lidocaine patch as well as [place]. He was deemed appropriate for discharge on 08/14/2016. PHYSICAL EXAMINATION: Please refer to note from same day. DISCHARGE DIAGNOSIS: Hematemesis. DISCHARGE DISPOSITION: To home. DISCHARGE CONDITION: Improved. DISCHARGE MEDICATIONS: Please refer to MAR. DISCHARGE INSTRUCTIONS: The patient will follow up with PCP in 1-[address] weeks[address] T[address]Y [address]: UR/nts JOB#: [id number] / [id number] GRUPO Lakhani MD [facility] MEDICAL CENTERIsaac
== END 2016-08-14 15:20 | disposition home health service (06) | DRG 356 ==
LOC: ER 00:55 → 3 NORTH 03:10 → UNDOADMIN 03:10 → 4 NORTH 03:10
PROVIDERS: ADMIT Internal Medicine; ATTEND Internal Medicine
PROC: 04L23DZ Occlusion of Gastric Artery with Intraluminal Device, Percutaneous Approach (ICD-10-PCS; 2016-08-08)
PROC: 04L13DZ Occlusion of Celiac Artery with Intraluminal Device, Percutaneous Approach (ICD-10-PCS; 2016-08-08)
PROC: 0DJ08ZZ Inspection of Upper Intestinal Tract, Via Natural or Artificial Opening Endoscopic (ICD-10-PCS; principal; 2016-08-08 13:30)
PROC: 30233N1 Transfusion of Nonautologous Red Blood Cells into Peripheral Vein, Percutaneous Approach (ICD-10-PCS; 2016-08-11)
DX: K92.0 Hematemesis (principal); J18.9 Pneumonia, unspecified organism; D62 Acute posthemorrhagic anemia; E44.1 Mild protein-calorie malnutrition; J44.0 Chronic obstructive pulmonary disease with (acute) lower respiratory infection; K57.92 Diverticulitis of intestine, part unspecified, without perforation or abscess without bleeding; R65.10 Systemic inflammatory response syndrome (SIRS) of non-infectious origin without acute organ dysfunction; E78.5 Hyperlipidemia, unspecified; I25.10 Atherosclerotic heart disease of native coronary artery without angina pectoris; D63.8 Anemia in other chronic diseases classified elsewhere; K27.9 Peptic ulcer, site unspecified, unspecified as acute or chronic, without hemorrhage or perforation; K57.90 Diverticulosis of intestine, part unspecified, without perforation or abscess without bleeding; N40.0 Benign prostatic hyperplasia without lower urinary tract symptoms; K52.9 Noninfective gastroenteritis and colitis, unspecified; R73.9 Hyperglycemia, unspecified; K92.2 Gastrointestinal hemorrhage, unspecified; Z85.01 Personal history of malignant neoplasm of esophagus; I25.2 Old myocardial infarction; Z88.0 Allergy status to penicillin; Z79.82 Long term (current) use of aspirin; Z85.028 Personal history of other malignant neoplasm of stomach; Z87.11 Personal history of peptic ulcer disease; Z87.891 Personal history of nicotine dependence; Z92.21 Personal history of antineoplastic chemotherapy; Z92.3 Personal history of irradiation; Z95.5 Presence of coronary angioplasty implant and graft; Z79.899 Other long term (current) drug therapy; Z90.49 Acquired absence of other specified parts of digestive tract; Z68.23 Body mass index [BMI] 23.0-23.9, adult
CPT/HCPCS: 36415; 37244; 74022; 74177; 76937; 80048; 80053; 81001; 82274; 82962; 83690; 85007; 85014; 85018; 85027; 85610; 85651; 85730; 86850; 86900; 86901; 86920; 87040; 87070; 87086; 87205; 93005; 96361; 96374; 96375; C1713; C1760; C1769; C1887; C1892; C1894; C9113; G0269; J1956; J2185; J2250; J2405; J2704; J3010; J3490; J7030; J7120; P9016; Q0161; Q0163; Q9967; 97110; 97116; 97535; 99285-25

== ENCOUNTER 2016-08-28 13:11 | Inpatient (IN) | payer OTHER ==
[~2016-08-28] VITALS: Ht 167.6 cm; Wt 67.1 kg
[~2016-08-28 13:11] MED LIST changes: +CEFP100T PO; +HYDR-2758 PO; +HYDR12.58 PO; +MAG355OR12 PO; +OMEP20CA9 PO; +PSYL0.5215 PO; +TAMS0.4C97 PO
[2016-08-28] MEDS ORDERED: fentaNYL PF VIAL 100 MCG/2 ML VIAL IV ONE (14:15)
[2016-08-28 14:23] LABS: BASO # 0.1 x10^3/uL (0.0-0.2); BASO % 0 % (0-3); EOS % 0 % (0-3); HEMATOCRIT 28.7 % (39.0-53.0); HEMOGLOBIN 9.1 g/dL (13.0-17.5); LYMPH # 1.1 x10^3/uL (1.0-4.8); LYMPH % 6 % (24-48); MEAN CORPUSCULAR HEMOGLOBIN 27 pg (25-35); MEAN CORPUSCULAR HGB CONC 32 g/dL (31-37); MEAN CORPUSCULAR VOLUME 84 fL (79-100); MONO % 11 % (0-9); NEUT % 83 % (31-73); PLATELET COUNT 582 x10^3/uL (140-400); RED CELL DISTRIBUTION WIDTH 14.9 % (11.5-14.5); WHITE BLOOD COUNT 18.8 x10^3/uL (4.0-11.0)
[2016-08-28 14:29] LABS: CALCIUM 9.8 mg/dL (8.5-10.1); CREATININE 1.1 mg/dL (0.7-1.3); GFR 65.6; POTASSIUM 4.4 mmol/L (3.5-5.1)
[2016-08-28 14:31] LABS: BILIRUBIN,URINE NEGATIVE (NEG); GLUCOSE,URINE NEGATIVE (NEG); NITRITE,URINE NEGATIVE (NEG); PH,URINE 7.5; PROTEIN,URINE NEGATIVE (NEG-TRACE); UROBILINOGEN,URINE 0.2 mg/dL (0.2 mg/dL)
[2016-08-28 14:32] LABS: INR 1.3 (0.8-1.1); PROTHROMBIN TIME PATIENT 15.7 SEC (11.7-14.0)
[2016-08-28 14:35] LABS: ALBUMIN 2.8 g/dL (3.4-5.0); ALBUMIN/GLOBULIN RATIO 0.5 (1.0-1.7); MAGNESIUM 2.3 mg/dL (1.8-2.4); TOTAL BILIRUBIN 0.5 mg/dL (0.2-1.0); TOTAL PROTEIN 8.5 g/dL (6.4-8.2)
[2016-08-28 14:42] LABS: CREATINE KINASE 25 U/L (39-308)
[2016-08-28 14:44] LABS: BACTERIA,URINE 0 /HPF (0-FEW); RBC,URINE 0 /HPF (0-2)
--- NOTE | 2016-08-28 14:44 | RAD ---
Examination: Single frontal view the chest. History: History of rib pain Comparison: 08/08/2069 Findings: The pulmonary bases are grossly appears unremarkable. Right infrahilar airspace opacity likely pneumonia or atelectasis or neoplasm with small right pleural effusion identified Impression: Right infrahilar airspace opacity likely pneumonia or atelectasis or neoplasm with small right pleural effusion. Follow-up to resolution.
[2016-08-28 14:47] LABS: CKMB MASS < 0.5 ng/mL (0.0-3.6)
--- NOTE | 2016-08-28 14:56 | EKG ---
[facility] [address] [place] [address] Test Date: 2016-08-28 Test Time: 14:30:56 Pat Name: RIMA DEL REAL Department: Room: Gender: M Product Managent Intern: , : 1940 Requested By: MARCO MCGHEE Order Number: [id number] Reading MD: Serafin Hutchins Measurements Intervals [place] Rate: 84 P: 42 NH: 168 QRS: 3 QRSD: 74 T: 15 QT: 368 QTc: 438 Interpretive Statements SINUS RHYTHM NORMAL ECG RI6.01 Compared to ECG 08/08/2016 01:23:40 No significant changes Electronically Signed On 08-29-2016 11:26:39 CDT by Serafin Hutchins
[2016-08-28 14:59] LABS: PLT ESTIMATE INCREASED (ADEQUATE)
[2016-08-28] MEDS ORDERED: IOHEXOL 350 MG/ML 100 ML VIAL. IV ONE (15:00)
[2016-08-28] MEDS ORDERED: CONTRAST GIVEN MC PRN (15:00)
--- NOTE | 2016-08-28 15:46 | RAD ---
Examination: CT angiogram of the chest abdomen pelvis History: History of pain wrapping around the abdomen. Comparison: Abdomen CT from 08/09/2016. Chest CT from 02/25/2015 PQRS Compliance Statement: One or more of the following individualized dose reduction techniques were utilized for this examination: 1. Automated exposure control 2. Adjustment of the mA and/or kV according to patient size 3. Use of iterative reconstruction technique Technique: CT angiography images of the chest abdomen pelvis were performed with IV contrast. Coronal and sagittal 3-D MIP reformats are performed Findings: The caliber of the aorta grossly appears unremarkable. The origin of the great vessels from the aorta grossly appears patent. Mild atherosclerotic calcification identified at the origin of the left subclavian artery. No evidence of aortic dissection identified. Diffuse coronary artery calcifications There is no evidence of filling defect identified in the main pulmonary artery trunk and right and left main pulmonary arteries. The heart size is grossly appears unremarkable changes of gastric pull-through surgery. In the right lung base there is a 12.6 x 2.6 cm x 8.7 cm fluid collection in the right lung base pleura abutting the gastric pull-through. Right lung base consolidation likely pneumonia or atelectasis. The visualized liver, spleen, adrenals grossly appears unremarkable. The visualized pancreas grossly appears unremarkable. Cholecystectomy changes identified. The small bowel is nondilated. Moderate amount of stool identified throughout the colon Few sigmoid colon diverticulosis. Mild urinary bladder distention. Moderate enlarged prostate gland with central prostatic calcifications. Bilateral kidneys enhance symmetrically. There is mild stenosis identified at the origin of the celiac artery. There is moderate stenosis of about 50% identified at the origin of the superior mesenteric artery from the aorta. The distal portions of the celiac artery and the superior mesentery artery are patent. The inferior mesenteric artery is patent. The renal arteries are patent. Moderate degenerative changes lumbar spine. Impression: 1. There is a large peripherally enhancing fluid collection with a identified in the right lung base pleura abutting the gastric pull-through. Differential includes empyema or anastomotic leak from the gastric pull-through into the right pleural space. Correlate clinically. 2. Right lung base atelectasis or pneumonia. 3. 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 Mild stenosis at the origin of the celiac artery. 4. No evidence of aortic dissection. 5. Coronary artery calcifications.
--- NOTE | 2016-08-28 16:36 | PHYS DOC ---
Past Medical History Past Medical History: CAD, Cancer, High Cholesterol, Other Additional Past Medical Histor: ESOPHAGUS CANCER 2012,IA 2010 W STENT X 1, Past Surgical History: Other Additional Past Surgical Histo: CARDIAC STENTS,THYROIDECTOMY,PARTAIL ESOPH. REMOVAL Alcohol Use: Occasionally Drug Use: None Adult General Chief Complaint Chief Complaint: ABDOMINAL PAIN HPI HPI Patient is a 75 year old male with history of CAD, esophageal cancer, who presents today with 4 out of 10 right rib pain wrapping around his back. Patient stated this patient has been going on since August 08, 2016 after being seen in the ED for GI bleed and being admitted. Patient states they did a procedure it to stop the bleeding. Patient states since then he has had the same pain. Patient denies any fever coughing or congestion. Denies any hematemesis or melena. PCP Dr. Richardson GI Dr. Jaimes Cardiology:Dr. Glasgow Review of Systems Review of Systems Constitutional: Denies fever or chills [] Eyes: Denies change in visual acuity, redness, or eye pain [] HENT: Denies nasal congestion or sore throat [] Respiratory: Denies cough or shortness of breath [] Cardiovascular: rib pain wrapping around the abdomen and back GI:see HPI : Denies dysuria or hematuria [] Musculoskeletal: Denies back pain or joint pain [] Integument: Denies rash or skin lesions [] Neurologic: Denies headache, focal weakness or sensory changes [] Endocrine: Denies polyuria or polydipsia [] Current Medications Current Medications Current Medications Medications (Trade) Dose Ordered Sig/Rita Start Time Stop Time Status Last Admin Dose Admin Fentanyl Citrate (Fentanyl 2ml Vial) 50 mcg PRN Q1HR PRN 08/28/16 17:45 08/29/16 17:44 Info (Do NOT chart on this entry -- for MONITORING) 1 each PRN DAILY PRN 08/28/16 15:00 08/30/16 14:59 Iohexol (Omnipaque 350 Mg/ml) 90 ml 1X ONCE 08/28/16 15:00 08/28/16 15:01 DC 08/28/16 15:09 90 ML Levofloxacin/ Dextrose 150 ml @ 100 mls/hr Q24H 08/28/16 18:00 09/01/16 19:29 Sodium Chloride 1,000 ml @ 125 mls/hr 1X ONCE 08/28/16 17:45 08/29/16 01:44 Allergies Allergies Allergies Coded Allergies Type Severity Reaction Last Updated Verified morphine Allergy Intermediate HALLUCINATE 10/08/15 Yes Penicillins Allergy Mild JOINT PAIN 10/08/15 Yes Physical Exam Physical Exam Constitutional: Well developed, well nourished, no acute distress, non-toxic appearance. [] HENT: Normocephalic, atraumatic, bilateral external ears normal, oropharynx moist, no oral exudates, nose normal. [] Eyes: PERRLA, EOMI, conjunctiva normal, no discharge. [] Neck: Normal range of motion, no tenderness, supple, no stridor. [] Cardiovascular:Heart rate regular rhythm, no murmur [] Lungs & Thorax: Bilateral breath sounds clear to auscultation [] Abdomen: Bowel sounds normal, soft, no tenderness, no masses, no pulsatile masses. [] Skin: Warm, dry, no erythema, no rash. [] Back: No tenderness, no CVA tenderness. [] Extremities: No tenderness, no cyanosis, no clubbing, ROM intact, no edema. [] Neurologic: Alert and oriented X 3, normal motor function, normal sensory function, no focal deficits noted. [] Psychologic: Affect normal, judgement normal, mood normal. [] Current Patient Data Vital Signs Vital Signs Date Time Temp Pulse Resp B/P (MAP) Pulse Ox O2 Delivery O2 Flow Rate FiO2 08/28/16 14:40 Room Air 08/28/16 13:48 98.6 18 128/66 (86) 99 98.6 Lab Values Laboratory Tests Test 08/28/16 13:30 08/28/16 13:45 Urine Collection Type Unknown Urine Color Yellow Urine Clarity Clear Urine pH 7.5 Urine Specific Ralph 1.015 Urine Protein Negative mg/dL (NEG-TRACE) Urine Glucose (UA) Negative mg/dL (NEG) Urine Ketones (Stick) Negative mg/dL (NEG) Urine Blood Negative (NEG) Urine Nitrite Negative (NEG) Urine Bilirubin Negative (NEG) Urine Urobilinogen Dipstick 0.2 mg/dL (0.2 mg/dL) Urine Leukocyte Esterase Small (NEG) Urine RBC 0 /HPF (0-2) Urine WBC 5-10 /HPF (0-4) Urine Transitional Epithelial Cells Few /LPF Urine Amorphous Sediment Present /HPF Urine Bacteria 0 /HPF (0-FEW) Urine Hyaline Casts Moderate /HPF Urine Mucus Mod /LPF White Blood Count 18.8 x10^3/uL (4.0-11.0) H Red Blood Count 3.40 x10^6/uL (4.30-5.70) L Hemoglobin 9.1 g/dL (13.0-17.5) L Hematocrit 28.7 % (39.0-53.0) L Mean Corpuscular Volume 84 fL (79-100) Mean Corpuscular Hemoglobin 27 pg (25-35) Mean Corpuscular Hemoglobin Concent 32 g/dL (31-37) Red Cell Distribution Width 14.9 % (11.5-14.5) H Platelet Count 582 x10^3/uL (140-400) #H Neutrophils (%) (Auto) 83 % (31-73) H Lymphocytes (%) (Auto) 6 % (24-48) L Monocytes (%) (Auto) 11 % (0-9) H Eosinophils (%) (Auto) 0 % (0-3) Basophils (%) (Auto) 0 % (0-3) Neutrophils # (Auto) 15.6 x10^3uL (1.8-7.7) H Lymphocytes # (Auto) 1.1 x10^3/uL (1.0-4.8) Monocytes # (Auto) 2.0 x10^3/uL (0.0-1.1) H Eosinophils # (Auto) 0.1 x10^3/uL (0.0-0.7) Basophils # (Auto) 0.1 x10^3/uL (0.0-0.2) Segmented Neutrophils % 85 % (35-66) H Band Neutrophils % 3 % (0-9) Lymphocytes % 4 % (24-48) L Monocytes % 8 % (0-10) Platelet Estimate Increased (ADEQUATE) Prothrombin Time 15.7 SEC (11.7-14.0) H Prothrombin Time INR 1.3 (0.8-1.1) H Sodium Level 134 mmol/L (136-145) L Potassium Level 4.4 mmol/L (3.5-5.1) Chloride Level 95 mmol/L (98-107) L Carbon Dioxide Level 31 mmol/L (21-32) Anion Gap 8 (6-14) Blood Urea Nitrogen 13 mg/dL (8-26) Creatinine 1.1 mg/dL (0.7-1.3) Estimated GFR (Cockcroft-Gault) 65.6 BUN/Creatinine Ratio 12 (6-20) Glucose Level 128 mg/dL (70-99) H Calcium Level 9.8 mg/dL (8.5-10.1) Magnesium Level 2.3 mg/dL (1.8-2.4) Total Bilirubin 0.5 mg/dL (0.2-1.0) Aspartate Amino Transferase (AST) 17 U/L (15-37) Alanine Aminotransferase (ALT) 23 U/L (16-63) Alkaline Phosphatase 83 U/L (46-116) Creatine Kinase 25 U/L (39-308) L Creatine Kinase MB (Mass) < 0.5 ng/mL (0.0-3.6) Creatine Kinase MB Relative Index 2.0 % (0-4) Troponin I Quantitative < 0.017 ng/mL (0.000-0.055) KS-Rbf-S-Type Natriuretic Peptide 302 pg/mL (0-124) H Total Protein 8.5 g/dL (6.4-8.2) H Albumin 2.8 g/dL (3.4-5.0) L Albumin/Globulin Ratio 0.5 (1.0-1.7) L Lipase 71 U/L (73-393) L Laboratory Tests 08/28/16 13:45 Laboratory Tests 08/28/16 13:45 EKG EKG [] Radiology/Procedures Radiology/Procedures PROCEDURE: CT ANGIO CHEST ABD PELVIS Examination: CT angiogram of the chest abdomen pelvis History: History of pain wrapping around the abdomen. Comparison: Abdomen CT from 08/09/2016. Chest CT from 02/25/2015 PQRS Compliance Statement: One or more of the following individualized dose reduction techniques were utilized for this examination: 1. Automated exposure control 2. Adjustment of the mA and/or kV according to patient size 3. Use of iterative reconstruction technique Technique: CT angiography images of the chest abdomen pelvis were performed with IV contrast. Coronal and sagittal 3-D MIP reformats are performed Findings: The caliber of the aorta grossly appears unremarkable. The origin of the great vessels from the aorta grossly appears patent. Mild atherosclerotic calcification identified at the origin of the left subclavian artery. No evidence of aortic dissection identified. Diffuse coronary artery calcifications There is no evidence of filling defect identified in the main pulmonary artery trunk and right and left main pulmonary arteries. The heart size is grossly appears unremarkable changes of gastric pull-through surgery. In the right lung base there is a 12.6 x 2.6 cm x 8.7 cm fluid collection in the right lung base pleura abutting the gastric pull-through. Right lung base consolidation likely pneumonia or atelectasis. The visualized liver, spleen, adrenals grossly appears unremarkable. The visualized pancreas grossly appears unremarkable. Cholecystectomy changes identified. The small bowel is nondilated. Moderate amount of stool identified throughout the colon Few sigmoid colon diverticulosis. Mild urinary bladder distention. Moderate enlarged prostate gland with central prostatic calcifications. Bilateral kidneys enhance symmetrically. There is mild stenosis identified at the origin of the celiac artery. There is moderate stenosis of about 50% identified at the origin of the superior mesenteric artery from the aorta. The distal portions of the celiac artery and the superior mesentery artery are patent. The inferior mesenteric artery is patent. The renal arteries are patent. Moderate degenerative changes lumbar spine. Impression: 1. There is a large peripherally enhancing fluid collection with a identified in the right lung base pleura abutting the gastric pull-through. Differential includes empyema or anastomotic leak from the gastric pull-through into the right pleural space. Correlate clinically. 2. Right lung base atelectasis or pneumonia. 3. 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 Mild stenosis at the origin of the celiac artery. 4. No evidence of aortic dissection. 5. Coronary artery calcifications. DICTATED and SIGNED BY: BHAVYA BILL MD DATE: 08/28/16 1527 CC: MARCO MCGHEE APRN; GRUPO RICHARDSON Jr, MD ~ Course & Med Decision Making Course & Med Decision Making Pertinent Labs and Imaging studies reviewed. (See chart for details) Patient is in the ED complaining of rib pain wrapping around her back and abdomen that has been going on since Aug 08 2016 after GI bleed. CBC with a WBC of 18.8. CMP with no acute findings. Patient has no fever. Blood cultures were obtained. CT of the abdomen and pelvic There is a large peripherally enhancing fluid collection with a identified in the right lung base pleura abutting the gastric pull-through. Differential includes empyema or anastomotic leak from the gastric pull-through into the right pleural space. Right lung base atelectasis or pneumonia. 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 Mild stenosis at the origin of the celiac artery. No evidence of aortic dissection. Coronary artery calcifications. Consulted with Dr. Adam who accepted patient for admission. Patient was started on Levaquin in the ED and NS continuous was ordered. Routine consults were placed in the computer for Dr. Jaimes and Dr. Jd Patrick Disclaimer Dragon Disclaimer This electronic medical record was generated, in whole or in part, using a voice recognition dictation system. Departure Departure Impression: Primary Impression: Pneumonia Disposition: 09 ADMITTED INPATIENT Admitting Physician: Other Condition: STABLE Referrals: GRUPO RICHARDSON Jr, MD (PCP) Problem Qualifiers Primary Impression: Pneumonia Pneumonia type: due to unspecified organism Laterality: right Lung location : unspecified part of lung Qualified Codes: J18.9 - Pneumonia, unspecified organism MARCO MCGHEE PAPER LATCHER Aug 28, 2016 16:36
[2016-08-28] MEDS ORDERED: IV NORMAL SALINE 1000ML BAG 1,000 ML IV ONE ×2 (17:45)
[2016-08-28] MEDS ORDERED: fentaNYL PF VIAL 100 MCG/2 ML VIAL IV PRN (17:45)
[2016-08-28 19:15] VITALS: BP 125/67
[2016-08-28] MEDS ORDERED: NITROGLYCERIN SUBLINGUAL 0.4 MG BOTTLE OF 25. SL PRN (20:30)
[2016-08-28] MEDS ORDERED: oxyCODONE ORAL SOLUTION 5 MG/5 ML SOLUTION PO PRN ×2 (20:45)
[2016-08-28] MEDS ORDERED: PANTOPRAZOLE 40 MG TABLET.DR. PO SCH (21:00)
[2016-08-28] MEDS: METOPROLOL TART IMMED RELEASE 25 MG TABLET. PO SCH (21:00)
[2016-08-28] MEDS: SIMVASTATIN 40 MG TABLET. PO SCH (21:00)
[2016-08-28] MEDS: fentaNYL PF VIAL 100 MCG/2 ML VIAL IV PRN (21:37)
--- NOTE | 2016-08-28 23:06 | HP ---
ADMIT DATE: 08/28/2016 CHIEF COMPLAINT: Right-sided chest pain. HISTORY OF PRESENT ILLNESS: The patient is a 75-year-old gentleman with esophageal cancer status post gastric pull-through in 2011, who recently got discharged after a GI bleed just last week. He now presents with persistent right lower chest pain, worse with deep breathing. He feels this is in his ribs and wrap him from the front towards the back. This actually has been going on for the past 3 weeks or so when he had presented to the Emergency Room and had been found with a GI bleed. Although GI bleed now is under control, pain is persisting. He specifically denies any cough or congestion, denies any fevers or chills. A CT of the chest was obtained in the Emergency Room revealing a large peripherally enhancing fluid collection identified in the right lung base pleura abutting the gastric pull-through. Differential includes empyema or anastomotic leak from the gastric pull-through into the right pleural space, right lung base atelectasis or pneumonia. The patient is now admitted for further evaluation and treatment of a fluid collection in his right chest. PAST MEDICAL HISTORY: Esophageal CA status post chemoradiation and resection in 2011, CAD status post OK in 2010 with stent x 1, status post thyroidectomy. FAMILY HISTORY: No cancers known. SOCIAL HISTORY: Quit smoking. Drinks an occasional beer. No drugs. ALLERGIES: PENICILLINS AND MORPHINE. MEDICATIONS: MAR reconciled with home medications. REVIEW OF SYSTEMS: Positive as per HPI. Rest of organ system review is negative. PHYSICAL EXAMINATION: VITAL SIGNS: From today show a blood pressure of 128/66, heart rate of 88, respiratory rate at 18. He is afebrile. GENERAL: This is a well-nourished, pale-appearing 75-year-old gentleman, alert and oriented, in no acute distress, very pleasant. HEENT: Shows no scleral icterus. NECK: Supple. LUNGS: Clear. HEART: Has regular rate and rhythm. ABDOMEN: Has positive bowel sounds, soft, nontender. EXTREMITIES: Show no edema. SKIN: Warm, soft and dry without any rash. LABORATORY DATA: CBC with a WBC of 18.8, hemoglobin 9.1, platelets of 582. Chemistries with a BUN and creatinine of 13 and 1.1, sodium at 134, potassium at 4.4. Normal electrolytes, albumin at 2.8. Urine is negative for infectious signs. Coags with an INR of 1.3. IMAGING: Please note as per HPI. ASSESSMENT AND PLAN: The patient is a 75-year-old gentleman with pertinent history of esophageal CA, status post resection and gastric pull-through in the distant past as well as a very recent upper GI bleed. He now presents with persistent right chest pain. By CT this appears to be related to a fluid collection highly suspicious for possible empyema versus gastric pull-through fistula. We will get vascular interventional to draw fluid out for therapeutic as well as diagnostic purposes. For suspicion of infection, he has been started on Levaquin. We will await further culture results, consult ID services as well. For pain control, he prefers oxycodone. We will liberalize his usual dose of 5 mL liquid to 5-10 as needed. The anemia is essentially stable. There is no evidence of further bleed since his recent discharge about a week ago after upper GI bleed. Monitor. Continue iron therapy as needed. We will continue all his other home medications as applicable. Hold off on subcutaneous anticoagulation for the time being, anticipating intervention tomorrow. KYLAH TERRY MD DR: UR/nts JOB#: [id number] / [id number] GRUPO Lakhani MD MTDD
[2016-08-28 23:15] VITALS: BP 112/63
[2016-08-29] VITALS (7 sets, daily range): BP systolic 112–120; BP diastolic 58–72
--- NOTE | 2016-08-29 00:20 | ACF ---
Admission Forms Criteria PNEUMONIA, COMMUNITY ACQUIRED Clinical Indications for Admission to Inpatient Care (Place 'X' for any and all applicable criteria): Admission to inpatient status for two midnights or more is indicated for ANY ONE of the following (1)(2)(3): [ ]I. Hypoxia [ ]II. Hemodynamic instability [ ]III. Altered mental status that is severe or persistent [ ]IV. Dehydration that is severe or persistent. [ ]V. Bacteremia [X]. Moderate-risk or high-risk category patients (Pneumonia Severity Index ( PSI) class IV or V, or CURB-65 score of 3 or greater). [ ]VII. Intermediate-risk category patients (e.g., PSI class III or CURB-65 score 2) who do not improve with outpatient and observation care treatment [ ]VIII. Outpatient treatment failure as indicated by 1 or more of the following(9): [ ]a) Failure to respond to antibiotic (eg, resistant organism) [ ]b) Clinically significant adverse effects from medication (eg, vomiting) [ ]c) Complications of pneumonia (eg, empyema, bacteremia) [ ]d) Significant worsening of comorbid cond necessitating inpatient care (eg, chronic heart failure) [ ]IX. Appropriate diagnostic testing and treatment unavailable in outpatient or recovery facility (eg, testing or infection control measures unavailable) [ ]X. Respiratory finding (eg. tachypnea) that do not respond to outpatient observation care treatment [ ]XI. Complicated pleural effusions (eg, emphysema, exudative, loculated) [ ]XII. Immunocompromised patients (e.g., AIDS, chronic steroid use) at moderate or high risk based on clinical evaluation. Extended stay beyond goal length of stay may be needed for (20) [ ]a) Unclear diagnosis [ ]b) Pleural disease [ ]c) Severe pneumonia or treatment failure [ ]d) Respiratory failure [ ]e) New onset hyponatremia (serum Na concentration less than 135 mEq/L(mmol/ L) [ ]f) Clinically significant comorbid illness (eg, heart failure, atrial fibrillation with rapid heart rate, alcohol withdrawal, renal insufficiency)(34)(35) [ ]g) Comorbid acute exacerbation of COPD(36) [ ]h) Concomitant diagnosis of malignancy [ ]i) Concomitant altered mental status [ ]j) Culture-identified Gram-negative or antibiotic-resistant organism (eg, Pseudomonas, methicillin-resistant Staphylococcus aureus MRSA)(30) [ ]k) Healthcare-associated pneumonia (36) The original [facility] content created by [facility] has been revised. The portions of the content which have been revised are identified through the use of italic text, and [facility] [place] has neither reviewed nor approved the modified material. All other unmodified content is copyright [facility]. Please see references footnoted in the original [facility] edition 2015 Admission Criteria Met?: Yes LICO CORTEZ Aug 29, 2016 00:20 KYLAH TERRY MD Aug 31, 2016 17:30
[2016-08-29] MEDS: fentaNYL PF VIAL 100 MCG/2 ML VIAL IV PRN ×8 (00:49→21:13)
[2016-08-29 03:41] LABS: BASO # 0.1 x10^3/uL (0.0-0.2); BASO % 0 % (0-3); EOS % 0 % (0-3); HEMATOCRIT 23.2 % (39.0-53.0); HEMOGLOBIN 7.5 g/dL (13.0-17.5); LYMPH # 0.9 x10^3/uL (1.0-4.8); LYMPH % 6 % (24-48); MEAN CORPUSCULAR HEMOGLOBIN 27 pg (25-35); MEAN CORPUSCULAR HGB CONC 32 g/dL (31-37); MEAN CORPUSCULAR VOLUME 83 fL (79-100); MONO % 13 % (0-9); NEUT % 81 % (31-73); PLATELET COUNT 429 x10^3/uL (140-400); RED BLOOD COUNT 2.79 x10^6/uL (4.30-5.70); RED CELL DISTRIBUTION WIDTH 15.1 % (11.5-14.5); WHITE BLOOD COUNT 16.2 x10^3/uL (4.0-11.0)
[2016-08-29 04:03] LABS: ALBUMIN 2.1 g/dL (3.4-5.0); ALBUMIN/GLOBULIN RATIO 0.5 (1.0-1.7); CALCIUM 8.7 mg/dL (8.5-10.1); CREATININE 0.9 mg/dL (0.7-1.3); GFR 82.7; POTASSIUM 4.4 mmol/L (3.5-5.1); TOTAL BILIRUBIN 0.4 mg/dL (0.2-1.0); TOTAL PROTEIN 6.7 g/dL (6.4-8.2)
[2016-08-29] MEDS ORDERED: POTASSIUM CHLORIDE 10 MEQ TABLET.ER. PO SCH (08:00)
--- NOTE | 2016-08-29 08:43 | PDOC2 ---
GI CONSULT Reason For Consult: Abd pain HPI: HPI: 75 y/o male who we know from recent admission for hematemesis. PMH significant for esophageal cancer s/p resection and chemo/radiation. EGD on 08/08/16 showed normal esophagus s/p pull through and adherent clot at the lesser curvature. He then underwent empiric IR embolization of large caliber inferior epigastric artery. After embolization, he c/o right rib pain, CT showed possible pneumonia , and he was treated w/ antibiotics. Since discharge, he reports right rib pain has worsened. Pain is worse w/ deep breathing. He also has upper abdominal discomfort (band-like from RUQ to epigastrium to LUQ). He has not been eating much due to decreased appetite. No n/v, reflux/heartburn, dysphagia, diarrhea, constipation, hematochezia, hematemesis, or melena. Some weight loss as reported last admission. Has been using oxycodone suspension for pain at home. Still on omeprazole BID. Last colonoscopy in 2015 w/ Dr. Celaya, believes showed diverticulosis. Imaging as below w/ large peripherally enhancing fluid collection in right lung base pleura abutting the gastric pull-through (ddx: empyema or anastomotic leak from the gastric pull-through), right lung base atelectasis/pneumonia, 50% stenosis SMA, mild stenosis celiac artery origin, and coronary artery calcifications. Admitted, kept NPO save ice chips, and started on IV Levaquin. Consults to pulm, cardiology, and oncology as well. PMH: PMH: esophageal cancer s/p resection w/ chemo/radiation, AL, CAD s/p stent, COPD, HLD , PUD, diverticulosis, partial thyroidectomy, cholecystectomy, PEG tube placement/removal, IR embolization inferior gastric artery FH: Family History: No pertinent hx Social History: Smoke: Quit ALCOHOL: occassional (2 beers per month) Drugs: None ROS: GEN: Denies fevers, chills, sweats HEENT: Denies blurred vision, sore throat CV: right chest/rib pain RESP: ?SOA GI: Per HPI : Denies hematuria, dysuria ENDO: +weight loss NEURO: Denies confusion, dizziness MSK: right rib/axillary pain SKIN: Denies jaundice, pruritus Vitals: Vitals: Vital Signs Date Time Temp Pulse Resp B/P (MAP) Pulse Ox O2 Delivery O2 Flow Rate FiO2 08/29/16 07:00 98.3 94 18 118/66 (83) Room Air 94.0 98.3 08/29/16 03:20 95 Labs: Labs: Laboratory Tests Test 08/28/16 13:30 08/28/16 13:45 08/29/16 02:55 Urine Collection Type Unknown Urine Color Yellow Urine Clarity Clear Urine pH 7.5 Urine Specific [place] 1.015 Urine Protein Negative mg/dL (NEG-TRACE) Urine Glucose (UA) Negative mg/dL (NEG) Urine Ketones (Stick) Negative mg/dL (NEG) Urine Blood Negative (NEG) Urine Nitrite Negative (NEG) Urine Bilirubin Negative (NEG) Urine Urobilinogen Dipstick 0.2 mg/dL (0.2 mg/dL) Urine Leukocyte Esterase Small (NEG) Urine RBC 0 /HPF (0-2) Urine WBC 5-10 /HPF (0-4) Urine Transitional Epithelial Cells Few /LPF Urine Amorphous Sediment Present /HPF Urine Bacteria 0 /HPF (0-FEW) Urine Hyaline Casts Moderate /HPF Urine Mucus Mod /LPF White Blood Count 18.8 x10^3/uL (4.0-11.0) 16.2 x10^3/uL (4.0-11.0) Red Blood Count 3.40 x10^6/uL (4.30-5.70) 2.79 x10^6/uL (4.30-5.70) Hemoglobin 9.1 g/dL (13.0-17.5) 7.5 g/dL (13.0-17.5) Hematocrit 28.7 % (39.0-53.0) 23.2 % (39.0-53.0) Mean Corpuscular Volume 84 fL (79-100) 83 fL (79-100) Mean Corpuscular Hemoglobin 27 pg (25-35) 27 pg (25-35) Mean Corpuscular Hemoglobin Concent 32 g/dL (31-37) 32 g/dL (31-37) Red Cell Distribution Width 14.9 % (11.5-14.5) 15.1 % (11.5-14.5) Platelet Count 582 x10^3/uL (140-400) 429 x10^3/uL (140-400) Neutrophils (%) (Auto) 83 % (31-73) 81 % (31-73) Lymphocytes (%) (Auto) 6 % (24-48) 6 % (24-48) Monocytes (%) (Auto) 11 % (0-9) 13 % (0-9) Eosinophils (%) (Auto) 0 % (0-3) 0 % (0-3) Basophils (%) (Auto) 0 % (0-3) 0 % (0-3) Neutrophils # (Auto) 15.6 x10^3uL (1.8-7.7) 13.2 x10^3uL (1.8-7.7) Lymphocytes # (Auto) 1.1 x10^3/uL (1.0-4.8) 0.9 x10^3/uL (1.0-4.8) Monocytes # (Auto) 2.0 x10^3/uL (0.0-1.1) 2.0 x10^3/uL (0.0-1.1) Eosinophils # (Auto) 0.1 x10^3/uL (0.0-0.7) 0.0 x10^3/uL (0.0-0.7) Basophils # (Auto) 0.1 x10^3/uL (0.0-0.2) 0.1 x10^3/uL (0.0-0.2) Segmented Neutrophils % 85 % (35-66) Band Neutrophils % 3 % (0-9) Lymphocytes % 4 % (24-48) Monocytes % 8 % (0-10) Platelet Estimate Increased (ADEQUATE) Prothrombin Time 15.7 SEC (11.7-14.0) Prothromb Time International Ratio 1.3 (0.8-1.1) Sodium Level 134 mmol/L (136-145) 136 mmol/L (136-145) Potassium Level 4.4 mmol/L (3.5-5.1) 4.4 mmol/L (3.5-5.1) Chloride Level 95 mmol/L (98-107) 98 mmol/L (98-107) Carbon Dioxide Level 31 mmol/L (21-32) 30 mmol/L (21-32) Anion Gap 8 (6-14) 8 (6-14) Blood Urea Nitrogen 13 mg/dL (8-26) 10 mg/dL (8-26) Creatinine 1.1 mg/dL (0.7-1.3) 0.9 mg/dL (0.7-1.3) Estimated GFR (Cockcroft-Gault) 65.6 82.7 BUN/Creatinine Ratio 12 (6-20) 11 (6-20) Glucose Level 128 mg/dL (70-99) 98 mg/dL (70-99) Calcium Level 9.8 mg/dL (8.5-10.1) 8.7 mg/dL (8.5-10.1) Magnesium Level 2.3 mg/dL (1.8-2.4) Total Bilirubin 0.5 mg/dL (0.2-1.0) 0.4 mg/dL (0.2-1.0) Aspartate Amino Transf (AST/SGOT) 17 U/L (15-37) 21 U/L (15-37) Alanine Aminotransferase (ALT/SGPT) 23 U/L (16-63) 14 U/L (16-63) Alkaline Phosphatase 83 U/L (46-116) 139 U/L (46-116) Creatine Kinase 25 U/L (39-308) Creatine Kinase MB (Mass) < 0.5 ng/mL (0.0-3.6) Creatine Kinase MB Relative Index 2.0 % (0-4) Troponin I Quantitative < 0.017 ng/mL (0.000-0.055) PI-Yxc-V-Type Natriuretic Peptide 302 pg/mL (0-124) Total Protein 8.5 g/dL (6.4-8.2) 6.7 g/dL (6.4-8.2) Albumin 2.8 g/dL (3.4-5.0) 2.1 g/dL (3.4-5.0) Albumin/Globulin Ratio 0.5 (1.0-1.7) 0.5 (1.0-1.7) Lipase 71 U/L (73-393) Allergies: Coded Allergies: morphine (Verified Allergy, Intermediate, HALLUCINATE, 10/08/15) Penicillins (Verified Allergy, Mild, JOINT PAIN, 10/08/15) Medications: Current Medications Medications (Trade) Dose Ordered Sig/Rita Route PRN Reason Start Time Stop Time Status Last Admin Dose Admin Fentanyl Citrate (Fentanyl 2ml Vial) 25 mcg 1X ONCE IV 08/28/16 14:15 08/28/16 14:16 DC 08/28/16 14:40 Iohexol (Omnipaque 350 Mg/ml) 90 ml 1X ONCE IV 08/28/16 15:00 08/28/16 15:01 DC 08/28/16 15:09 Levofloxacin/ Dextrose 150 ml @ 100 mls/hr Q24H IV 08/28/16 18:00 09/01/16 19:29 08/28/16 18:44 Sodium Chloride 1,000 ml @ 125 mls/hr 1X ONCE IV 08/28/16 17:45 08/29/16 01:44 DC 08/28/16 18:43 Fentanyl Citrate (Fentanyl 2ml Vial) 50 mcg PRN Q1HR PRN IV PAIN 08/28/16 17:45 08/28/16 20:41 DC 08/28/16 19:34 Sodium Chloride 1,000 ml @ 125 mls/hr 1X ONCE IV 08/28/16 17:45 08/29/16 01:44 DC 08/28/16 19:36 Fentanyl Citrate (Fentanyl 2ml Vial) 25 mcg PRN Q1HR PRN IV severe pain, 2nd choice 08/28/16 20:45 08/29/16 06:42 Imaging: Imaging: CXR 08/28/16 Impression: Right infrahilar airspace opacity likely pneumonia or atelectasis or neoplasm with small right pleural effusion. Follow-up to resolution. CTA chest/A/P 08/28/16 Impression: 1. There is a large peripherally enhancing fluid collection with a identified in the right lung base pleura abutting the gastric pull-through. Differential includes empyema or anastomotic leak from the gastric pull-through into the right pleural space. Correlate clinically. 2. Right lung base atelectasis or pneumonia. 3. 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 Mild stenosis at the origin of the celiac artery. 4. No evidence of aortic dissection. 5. Coronary artery calcifications. PE: GEN: NAD HEENT: Atraumatic, PERRL LUNGS: decreased HEART: tachycardic ABD: BS quiet, tender diffusely although worse from RUQ to LUQ (pt attributes lower discomfort to full bladder), tenderness along right ribs EXTREMITY: No edema SKIN: No rashes, no jaundice NEURO/PSYCH: A & O 3 A/P: A/P: Abnormal CTA chest/A/P -large peripherally enhancing fluid collection in right lung base pleura abutting the gastric pull-through (ddx: empyema or anastomotic leak from the gastric pull-through), right lung base -also note 50% stenosis SMA, mild stenosis celiac artery origin -on IV atbx Right rib pain, abdominal pain, decreased appetite -onset last admission, worsening, constant - worse w/ deep breaths H/o esophageal cancer s/p gastric pull through w/ chemo/rad Recent GI bleed s/p EGD and IR embolization inferior epigastric artery Anemia CRC screen -colonoscopy 2015 w/ Dr. Celaya -- D/w Dr. Jaimes. Esophagram w/ dilute contrast r/o anastomotic leak (see order) . If present, ?[facility] transfer KRISTIN REDMOND Aug 29, 2016 08:42
[2016-08-29] MEDS ORDERED: hydroCHLOROthiazide 25 MG TABLET PO SCH (09:00)
[2016-08-29] MEDS ORDERED: TAMSULOSIN 0.4 MG CAP.ER.24H. PO SCH (09:00)
[2016-08-29] MEDS ORDERED: CHOLECALCIFEROL (VITAMIN D3) 1,000 UNIT TABLET PO SCH (09:00)
[2016-08-29] MEDS ORDERED: PANTOPRAZOLE IV PUSH 40 MG VIAL. IVP SCH (09:00)
[2016-08-29] MEDS ORDERED: VITAMIN B12,B9,B6 COMPLEX 1 TABLET. PO SCH (09:00)
[2016-08-29] MEDS ORDERED: IOHEXOL 350 MG/ML 100 ML VIAL. PO ONE (09:45)
[2016-08-29] MEDS ORDERED: BARIUM SULFATE 60% 355 ML SUSP PO ONE (09:45)
[2016-08-29] MEDS ORDERED: BARIUM SULFATE 340 GM SUSPENSION. PO ONE (09:45)
[2016-08-29] MEDS ORDERED: CONTRAST GIVEN MC PRN (10:00)
[2016-08-29] MEDS ORDERED: fentaNYL PF VIAL 100 MCG/2 ML VIAL IV PRN (11:00)
[2016-08-29] MEDS: METOPROLOL TART IMMED RELEASE 25 MG TABLET. PO SCH ×2 (11:03→21:00)
--- NOTE | 2016-08-29 11:24 | PDOC2 ---
CARDIAC CONSULT DATE OF CONSULT Date of Consult DATE: 08/29/16 TIME: 11:12 REASON FOR CONSULT Reason for Consult: mesenteric artery disease REFERRING PHYSICIAN Referring Physician: Shannan SOURCE Source: Chart review, Patient HISTORY OF PRESENT ILLNESS HISTORY OF PRESENT ILLNESS This is a pleasant 75 yo male admitted for complains of right rib cage pain. This has been occurring in the last few week and it has gotten worse in the last 2 days. This is not associated with chest pain and denies any significant productive coughing. This is worse when he puts pressure on it by laying on the right side. He thinks this is associated with his GI procedures he recently. He was noted recently with GI bleed and received gastric inferior artery embolization via IR as well as EGD prior to it. His appetite has been poor ever since he had that GI bleed but no complains of significant abdominal pain, dark stools, slight nausea but no vomiting. Denies any dizziness, palpitations and no symptoms of SOA nor CP. He has been complaint with his cardiac medications as well. Denies any recent falls, injury. He feels hot but no recorded fever. PAST MEDICAL HISTORY Cardiovascular: CAD, HTN, Hyperlipidemia CENTRAL NERVOUS SYSTEM: Other (No pertinent history) GI: Diverticulosis, GERD, GI bleed Heme/Onc: Cancer (esophageal with chemo and radiation) Musculoskeletal: Osteoarthritis Rheumatologic: No pertinent hx Infectious disease: No pertinent hx ENT: No pertinent hx Renal/: Benign prostatic enlarg. PAST SURGICAL HISTORY Past Surgical History: Cholecystectomy, Other (esophageal resection; PCI/DEE DEE to LAD 2010) FAMILY HISTORY Family History: Cancer, Hypertension SOCIAL HISTORY Smoke: No ALCOHOL: none Drugs: None Lives: with Family CURRENT MEDICATIONS CURRENT MEDICATIONS Current Medications Medications (Trade) Dose Ordered Sig/Rita Route PRN Reason Start Time Stop Time Status Last Admin Dose Admin Fentanyl Citrate (Fentanyl 2ml Vial) 25 mcg 1X ONCE IV 08/28/16 14:15 08/28/16 14:16 DC 08/28/16 14:40 Iohexol (Omnipaque 350 Mg/ml) 90 ml 1X ONCE IV 08/28/16 15:00 08/28/16 15:01 DC 08/28/16 15:09 Levofloxacin/ Dextrose 150 ml @ 100 mls/hr Q24H IV 08/28/16 18:00 09/01/16 19:29 08/28/16 18:44 Sodium Chloride 1,000 ml @ 125 mls/hr 1X ONCE IV 08/28/16 17:45 08/29/16 01:44 DC 08/28/16 18:43 Fentanyl Citrate (Fentanyl 2ml Vial) 50 mcg PRN Q1HR PRN IV PAIN 08/28/16 17:45 08/28/16 20:41 DC 08/28/16 19:34 Sodium Chloride 1,000 ml @ 125 mls/hr 1X ONCE IV 08/28/16 17:45 08/29/16 01:44 DC 08/28/16 19:36 Metoprolol Tartrate (Lopressor) 25 mg BID PO 08/28/16 21:00 08/29/16 11:03 Tamsulosin HCl (Flomax) 0.4 mg DAILY PO 08/29/16 09:00 08/29/16 11:04 Hydrochlorothiazide (Hydrodiuril) 25 mg DAILY PO 08/29/16 09:00 08/29/16 11:04 Fentanyl Citrate (Fentanyl 2ml Vial) 25 mcg PRN Q1HR PRN IV severe pain, 2nd choice 08/28/16 20:45 08/29/16 10:59 Pantoprazole Sodium (Protonix Vial) 40 mg DAILYAC IVP 08/29/16 09:00 08/29/16 11:00 Iohexol (Omnipaque 350 Mg/ml) 200 ml 1X ONCE PO 08/29/16 09:45 08/29/16 09:49 DC 08/29/16 10:23 Barium Sulfate (Liquid E-Z Paque) 355 ml 1X ONCE PO 08/29/16 09:45 08/29/16 09:49 DC 08/29/16 10:24 ALLERGIES ALLERGIES: Coded Allergies: morphine (Verified Allergy, Intermediate, HALLUCINATE, 10/08/15) Penicillins (Verified Allergy, Mild, JOINT PAIN, 10/08/15) ROS Review of System 14 point ROS evaluated with pertinent positives noted per HPI PHYSICAL EXAM General: Alert, Oriented X3, Cooperative, No acute distress HEENT: Atraumatic, Mucous membr. moist/pink Lungs: Other (right basilar crackles) Heart: Regular rate, Normal S1, Normal S2 Abdomen: Soft, No tenderness Extremities: No cyanosis, No edema Skin: No breakdown, No significant lesion Neuro: Normal speech, Sensation intact Psych/Mental Status: Mental status NL, Mood NL MUSCULOSKELETAL: Osteoarthritic changes both hands VITALS VITALS Vital Signs Date Time Temp Pulse Resp B/P (MAP) Pulse Ox O2 Delivery O2 Flow Rate FiO2 08/29/16 11:03 91 112/66 08/29/16 10:59 97 Room Air 94.0 08/29/16 10:39 98.6 18 98.6 LABS Lab: Laboratory Tests Test 08/28/16 13:30 08/28/16 13:45 08/29/16 02:55 Urine Collection Type Unknown Urine Color Yellow Urine Clarity Clear Urine pH 7.5 Urine Specific [place] 1.015 Urine Protein Negative mg/dL (NEG-TRACE) Urine Glucose (UA) Negative mg/dL (NEG) Urine Ketones (Stick) Negative mg/dL (NEG) Urine Blood Negative (NEG) Urine Nitrite Negative (NEG) Urine Bilirubin Negative (NEG) Urine Urobilinogen Dipstick 0.2 mg/dL (0.2 mg/dL) Urine Leukocyte Esterase Small (NEG) Urine RBC 0 /HPF (0-2) Urine WBC 5-10 /HPF (0-4) Urine Transitional Epithelial Cells Few /LPF Urine Amorphous Sediment Present /HPF Urine Bacteria 0 /HPF (0-FEW) Urine Hyaline Casts Moderate /HPF Urine Mucus Mod /LPF White Blood Count 18.8 x10^3/uL (4.0-11.0) 16.2 x10^3/uL (4.0-11.0) Red Blood Count 3.40 x10^6/uL (4.30-5.70) 2.79 x10^6/uL (4.30-5.70) Hemoglobin 9.1 g/dL (13.0-17.5) 7.5 g/dL (13.0-17.5) Hematocrit 28.7 % (39.0-53.0) 23.2 % (39.0-53.0) Mean Corpuscular Volume 84 fL (79-100) 83 fL (79-100) Mean Corpuscular Hemoglobin 27 pg (25-35) 27 pg (25-35) Mean Corpuscular Hemoglobin Concent 32 g/dL (31-37) 32 g/dL (31-37) Red Cell Distribution Width 14.9 % (11.5-14.5) 15.1 % (11.5-14.5) Platelet Count 582 x10^3/uL (140-400) 429 x10^3/uL (140-400) Neutrophils (%) (Auto) 83 % (31-73) 81 % (31-73) Lymphocytes (%) (Auto) 6 % (24-48) 6 % (24-48) Monocytes (%) (Auto) 11 % (0-9) 13 % (0-9) Eosinophils (%) (Auto) 0 % (0-3) 0 % (0-3) Basophils (%) (Auto) 0 % (0-3) 0 % (0-3) Neutrophils # (Auto) 15.6 x10^3uL (1.8-7.7) 13.2 x10^3uL (1.8-7.7) Lymphocytes # (Auto) 1.1 x10^3/uL (1.0-4.8) 0.9 x10^3/uL (1.0-4.8) Monocytes # (Auto) 2.0 x10^3/uL (0.0-1.1) 2.0 x10^3/uL (0.0-1.1) Eosinophils # (Auto) 0.1 x10^3/uL (0.0-0.7) 0.0 x10^3/uL (0.0-0.7) Basophils # (Auto) 0.1 x10^3/uL (0.0-0.2) 0.1 x10^3/uL (0.0-0.2) Segmented Neutrophils % 85 % (35-66) Band Neutrophils % 3 % (0-9) Lymphocytes % 4 % (24-48) Monocytes % 8 % (0-10) Platelet Estimate Increased (ADEQUATE) Prothrombin Time 15.7 SEC (11.7-14.0) Prothromb Time International Ratio 1.3 (0.8-1.1) Sodium Level 134 mmol/L (136-145) 136 mmol/L (136-145) Potassium Level 4.4 mmol/L (3.5-5.1) 4.4 mmol/L (3.5-5.1) Chloride Level 95 mmol/L (98-107) 98 mmol/L (98-107) Carbon Dioxide Level 31 mmol/L (21-32) 30 mmol/L (21-32) Anion Gap 8 (6-14) 8 (6-14) Blood Urea Nitrogen 13 mg/dL (8-26) 10 mg/dL (8-26) Creatinine 1.1 mg/dL (0.7-1.3) 0.9 mg/dL (0.7-1.3) Estimated GFR (Cockcroft-Gault) 65.6 82.7 BUN/Creatinine Ratio 12 (6-20) 11 (6-20) Glucose Level 128 mg/dL (70-99) 98 mg/dL (70-99) Calcium Level 9.8 mg/dL (8.5-10.1) 8.7 mg/dL (8.5-10.1) Magnesium Level 2.3 mg/dL (1.8-2.4) Total Bilirubin 0.5 mg/dL (0.2-1.0) 0.4 mg/dL (0.2-1.0) Aspartate Amino Transf (AST/SGOT) 17 U/L (15-37) 21 U/L (15-37) Alanine Aminotransferase (ALT/SGPT) 23 U/L (16-63) 14 U/L (16-63) Alkaline Phosphatase 83 U/L (46-116) 139 U/L (46-116) Creatine Kinase 25 U/L (39-308) Creatine Kinase MB (Mass) < 0.5 ng/mL (0.0-3.6) Creatine Kinase MB Relative Index 2.0 % (0-4) Troponin I Quantitative < 0.017 ng/mL (0.000-0.055) OM-Vxo-C-Type Natriuretic Peptide 302 pg/mL (0-124) Total Protein 8.5 g/dL (6.4-8.2) 6.7 g/dL (6.4-8.2) Albumin 2.8 g/dL (3.4-5.0) 2.1 g/dL (3.4-5.0) Albumin/Globulin Ratio 0.5 (1.0-1.7) 0.5 (1.0-1.7) Lipase 71 U/L (73-393) ASSESSMENT/PLAN ASSESSMENT/PLAN 1. Right rib cage pain with pleural effusion and probable pneumonia: Pulmonary has been consulted. 2. Anemia: Hgb from 9.1 to 7.5, GI/Hemonc following 3. Recent GI bleed: 08/08/2016 requiring transfusion and IR embolization 4. Hx of esophageal CA: Prior chemo and radiation. Positive for anorexia and wt loss. 5. Asymptomatic nonocclusive mesenteric artery stenosis: 50% at the origin of the superior mesenteric artery from the aorta. 6. CAD: PCI/DEE DEE to LAD stable, no cardiac symptoms, stable 7. HTN: controlled 8. HLP Recommendations 1. F/U TTE. 2. Continue with secondary prevention and resume ECASA or may consider plavix instead depending on GI preference once OK with them 3. Supportive care at this time 4. If symptoms in regards to SMA arise then would advise selective angiography with IR Problems: SALOME FONSECA BREAKFAST COOK Aug 29, 2016 11:24
--- NOTE | 2016-08-29 11:30 | PDOC ---
Provider Note Provider Note Onc consult dictated- [id number] 1. 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 He had sawyer metastases in the thoracic outlet and March 2014 status post chemoradiation with cisplatin/5-FU now with no signs of recurrence, last PET 06/25. 2. Right rib pain with complicated pneumonia and effusion vs anastomotic leak. Esophagram and IR aspiration pending. Please send for cytology. MAIN RODRIGUES DO Aug 29, 2016 11:30
--- NOTE | 2016-08-29 11:46 | RAD ---
Indication history of esophageal malignancy. Assess for potential leak. An esophagram was performed. The patient is status post gastric pull-up. Initially Omnipaque was used as a contrast agent. This was followed by thin barium. 1.4 minutes of fluoroscopy time was utilized. 7 fluoroscopic images were obtained. Changes compatible with a gastric pull-up are noted. There is no mass or leak. No complication is seen. IMPRESSION: Status post gastric pull-up. No evidence of leak. If chronic aspiration is clinically suspect a video swallow study with a member of the Department of speech pathology should be considered
[2016-08-29] MEDS ORDERED: LIDOCAINE 1% / SOD BICARB 8.4% 20 ML VIAL. IJ ONE (13:54)
[2016-08-29] MEDS ORDERED: fentaNYL PF VIAL 100 MCG/2 ML VIAL ONE (14:07)
--- NOTE | 2016-08-29 14:57 | CARD ---
APPROVED REPORT EXAM: Two-dimensional and M-mode echocardiogram with Doppler and color Doppler. Other Information Quality : Average Rhythm : NSR INDICATION Cardiac Disease: CAD 2D DIMENSIONS RVDd2.8 (2.9-3.5cm)Left Atrium(2D)3.0 (1.6-4.0cm) IVSd1.0 (0.7-1.1cm)Aortic Root(2D)3.0 (2.0-3.7cm) LVDd3.6 (3.9-5.9cm)LVOT Diameter2.0 (1.8-2.4cm) PWd1.0 (0.7-1.1cm)LVDs2.0 (2.5-4.0cm) FS (%) 35.5 %SV43.3 ml LVEF(%)65.7 (>50%) Aortic Valve AoV Peak Abdullahi.122.2cm/sAoV VTI23.7cm AO Peak GR.6.0mmHgLVOT Peak Abdullahi.101.7cm/s LVOT VTI 19.98cmAO Mean GR.4mmHg THAI (VMAX)2.93yw2EBJ (VTI)2.72cm2 Mitral Valve MV E Euahokuf909.9cm/sMV DECEL EQAQ445gl MV A Mbbpmhta63.1cm/sMV SMU03uj E/A Ratio1.2MV A Olswlkot45jw MVA (PHT)3.55cm2 TDI E/Lateral E'15.5E/Medial E'13.0 Pulmonary Valve PV Peak Tafihmsb337.4cm/sPV Peak Grad.11mmHg RVOT VTI23.4cm Tricuspid Valve TR P. Sapuzgxq801jc/sRAP UPWMQLWW5orWt TR Peak Gr.18viKcDJQV45bsJg Pulmonary Vein S1 Seqxyxnv57.2cm/sD2 Bgbozckq65.0cm/s LEFT VENTRICLE The left ventricle is normal size. There is normal left ventricular wall thickness. Left ventricle sy stolic function is normal. The Ejection Fraction is 65-70%. There is normal LV segmental wall motion. The left ventricular diastolic function and filling is normal for age. There is no ventricular septa l defect visualized. RIGHT VENTRICLE The right ventricle is normal size. The right ventricular systolic function is normal. ATRIA The left atrium size is normal. The right atrium size is normal. The interatrial septum is intact wit h no evidence for an atrial septal defect or patent foramen ovale as noted on 2-D or Doppler imaging. AORTIC VALVE The aortic valve is normal in structure and function. The aortic valve is trileaflet. Doppler and Col or Flow revealed no significant aortic regurgitation. There is no significant aortic valvular stenosi s. MITRAL VALVE The mitral valve leaflets are thickened. There is no mitral valve stenosis. Doppler and Color Flow re vealed mild mitral regurgitation. TRICUSPID VALVE The tricuspid valve is normal in structure and function. Doppler and Color Flow revealed trace to mil d tricuspid regurgitation. The PA pressure was estimated at 36 mmHg. There is no tricuspid valve sten osis. PULMONIC VALVE The pulmonic valve is not well visualized. Doppler and Color Flow revealed no pulmonic valvular regur gitation. There is no pulmonic valvular stenosis. GREAT VESSELS The aortic root is normal in size. Normal pulmonary venous flow (Doppler). The IVC is normal in size and collapses >50% with inspiration. PERICARDIAL EFFUSION There is no evidence of significant pericardial effusion. Critical Notification Critical Value: No <Conclusion> The left ventricle is normal size. Left ventricle systolic function is normal The Ejection Fraction is 65-70%. There is no significant aortic valvular stenosis. Doppler and Color Flow revealed no significant aortic regurgitation. Doppler and Color Flow revealed mild mitral regurgitation. Doppler and Color Flow revealed trace to mild tricuspid regurgitation. The PA pressure was estimated at 36 mmHg.
--- NOTE | 2016-08-29 15:11 | RAD ---
Noncontrast CT chest Indication: 75-year-old male who is many years status post gastric pull-up procedure for esophageal cancer. He underwent superselective embolization on 08/08/2016 for hemodynamically significant upper GI bleed within the gastric pull up segment, identified at EGD. He has had low right chest pain ever since. A [facility] CTA chest from 08/28/2016 revealed the presence of a small low right pleural effusion, containing gas bubbles, and surrounded by thickened pleura. The CT findings raise the question of either empyema or communication between the gastric pull-up and right pleural space. An esophagram was performed earlier this morning in diagnostic radiology. That study revealed no immediate extraluminal extravasation of oral contrast material. CT-guided aspiration of the pleural effusion, with possible chest tube insertion, was requested. RS Compliance Statement: One or more of the following individualized dose reduction techniques was/were utilized for this CT examination or procedure: 1. Automated exposure control. 2. Adjustment of mA and/or kV according to patient size. 3. Iterative reconstruction technique. Informed consent for CT-guided right thoracentesis, with possible chest tube insertion if empyema, was obtained from the patient. He was placed on the CT scanner in the left lateral decubitus position. Preliminary noncontrast CT images were obtained through chest. Those images revealed abnormal accumulation of the orally ingested contrast material within right pleural space, documenting communication with the gastric pull up. The area of communication appears to lie within body of stomach, well below the surgical anastomosis, possibly related to underlying peptic ulcer disease and/or ischemia from the prior embolization. Admitting hospitalist, vp delivery, and oncologist were all notified. Transfer to [facility] was recommended. No thoracentesis or chest tube insertion was performed at this setting. Impression: CT images obtained approximately 4 hours following ingestion of oral contrast material revealed communication between the gastric pull-up and right pleural space. The site of communication lies within body of the gastric pull-up, well below the surgical anastomosis, and may well represent underlying peptic ulcer disease +/- ischemia from the prior GI bleed embolization procedure.
--- NOTE | 2016-08-29 16:36 | PDOC ---
PULMONARY PROGRESS NOTES Vitals Vital Signs Date Time Temp Pulse Resp B/P (MAP) Pulse Ox O2 Delivery O2 Flow Rate FiO2 08/29/16 15:49 97 Room Air 94.0 08/29/16 15:00 98.5 90 18 115/72 (86) 98.5 Lungs: Clear Cardiovascular: S1, S2 Labs Laboratory Tests Test 08/28/16 13:30 08/28/16 13:45 08/29/16 02:55 Urine Collection Type Unknown Urine Color Yellow Urine Clarity Clear Urine pH 7.5 Urine Specific [place] 1.015 Urine Protein Negative mg/dL (NEG-TRACE) Urine Glucose (UA) Negative mg/dL (NEG) Urine Ketones (Stick) Negative mg/dL (NEG) Urine Blood Negative (NEG) Urine Nitrite Negative (NEG) Urine Bilirubin Negative (NEG) Urine Urobilinogen Dipstick 0.2 mg/dL (0.2 mg/dL) Urine Leukocyte Esterase Small (NEG) Urine RBC 0 /HPF (0-2) Urine WBC 5-10 /HPF (0-4) Urine Transitional Epithelial Cells Few /LPF Urine Amorphous Sediment Present /HPF Urine Bacteria 0 /HPF (0-FEW) Urine Hyaline Casts Moderate /HPF Urine Mucus Mod /LPF White Blood Count 18.8 x10^3/uL (4.0-11.0) 16.2 x10^3/uL (4.0-11.0) Red Blood Count 3.40 x10^6/uL (4.30-5.70) 2.79 x10^6/uL (4.30-5.70) Hemoglobin 9.1 g/dL (13.0-17.5) 7.5 g/dL (13.0-17.5) Hematocrit 28.7 % (39.0-53.0) 23.2 % (39.0-53.0) Mean Corpuscular Volume 84 fL (79-100) 83 fL (79-100) Mean Corpuscular Hemoglobin 27 pg (25-35) 27 pg (25-35) Mean Corpuscular Hemoglobin Concent 32 g/dL (31-37) 32 g/dL (31-37) Red Cell Distribution Width 14.9 % (11.5-14.5) 15.1 % (11.5-14.5) Platelet Count 582 x10^3/uL (140-400) 429 x10^3/uL (140-400) Neutrophils (%) (Auto) 83 % (31-73) 81 % (31-73) Lymphocytes (%) (Auto) 6 % (24-48) 6 % (24-48) Monocytes (%) (Auto) 11 % (0-9) 13 % (0-9) Eosinophils (%) (Auto) 0 % (0-3) 0 % (0-3) Basophils (%) (Auto) 0 % (0-3) 0 % (0-3) Neutrophils # (Auto) 15.6 x10^3uL (1.8-7.7) 13.2 x10^3uL (1.8-7.7) Lymphocytes # (Auto) 1.1 x10^3/uL (1.0-4.8) 0.9 x10^3/uL (1.0-4.8) Monocytes # (Auto) 2.0 x10^3/uL (0.0-1.1) 2.0 x10^3/uL (0.0-1.1) Eosinophils # (Auto) 0.1 x10^3/uL (0.0-0.7) 0.0 x10^3/uL (0.0-0.7) Basophils # (Auto) 0.1 x10^3/uL (0.0-0.2) 0.1 x10^3/uL (0.0-0.2) Segmented Neutrophils % 85 % (35-66) Band Neutrophils % 3 % (0-9) Lymphocytes % 4 % (24-48) Monocytes % 8 % (0-10) Platelet Estimate Increased (ADEQUATE) Prothrombin Time 15.7 SEC (11.7-14.0) Prothromb Time International Ratio 1.3 (0.8-1.1) Sodium Level 134 mmol/L (136-145) 136 mmol/L (136-145) Potassium Level 4.4 mmol/L (3.5-5.1) 4.4 mmol/L (3.5-5.1) Chloride Level 95 mmol/L (98-107) 98 mmol/L (98-107) Carbon Dioxide Level 31 mmol/L (21-32) 30 mmol/L (21-32) Anion Gap 8 (6-14) 8 (6-14) Blood Urea Nitrogen 13 mg/dL (8-26) 10 mg/dL (8-26) Creatinine 1.1 mg/dL (0.7-1.3) 0.9 mg/dL (0.7-1.3) Estimated GFR (Cockcroft-Gault) 65.6 82.7 BUN/Creatinine Ratio 12 (6-20) 11 (6-20) Glucose Level 128 mg/dL (70-99) 98 mg/dL (70-99) Calcium Level 9.8 mg/dL (8.5-10.1) 8.7 mg/dL (8.5-10.1) Magnesium Level 2.3 mg/dL (1.8-2.4) Total Bilirubin 0.5 mg/dL (0.2-1.0) 0.4 mg/dL (0.2-1.0) Aspartate Amino Transf (AST/SGOT) 17 U/L (15-37) 21 U/L (15-37) Alanine Aminotransferase (ALT/SGPT) 23 U/L (16-63) 14 U/L (16-63) Alkaline Phosphatase 83 U/L (46-116) 139 U/L (46-116) Creatine Kinase 25 U/L (39-308) Creatine Kinase MB (Mass) < 0.5 ng/mL (0.0-3.6) Creatine Kinase MB Relative Index 2.0 % (0-4) Troponin I Quantitative < 0.017 ng/mL (0.000-0.055) PN-Pwz-F-Type Natriuretic Peptide 302 pg/mL (0-124) Total Protein 8.5 g/dL (6.4-8.2) 6.7 g/dL (6.4-8.2) Albumin 2.8 g/dL (3.4-5.0) 2.1 g/dL (3.4-5.0) Albumin/Globulin Ratio 0.5 (1.0-1.7) 0.5 (1.0-1.7) Lipase 71 U/L (73-393) Laboratory Tests Test 08/29/16 02:55 White Blood Count 16.2 x10^3/uL (4.0-11.0) Red Blood Count 2.79 x10^6/uL (4.30-5.70) Hemoglobin 7.5 g/dL (13.0-17.5) Hematocrit 23.2 % (39.0-53.0) Mean Corpuscular Volume 83 fL (79-100) Mean Corpuscular Hemoglobin 27 pg (25-35) Mean Corpuscular Hemoglobin Concent 32 g/dL (31-37) Red Cell Distribution Width 15.1 % (11.5-14.5) Platelet Count 429 x10^3/uL (140-400) Neutrophils (%) (Auto) 81 % (31-73) Lymphocytes (%) (Auto) 6 % (24-48) Monocytes (%) (Auto) 13 % (0-9) Eosinophils (%) (Auto) 0 % (0-3) Basophils (%) (Auto) 0 % (0-3) Neutrophils # (Auto) 13.2 x10^3uL (1.8-7.7) Lymphocytes # (Auto) 0.9 x10^3/uL (1.0-4.8) Monocytes # (Auto) 2.0 x10^3/uL (0.0-1.1) Eosinophils # (Auto) 0.0 x10^3/uL (0.0-0.7) Basophils # (Auto) 0.1 x10^3/uL (0.0-0.2) Sodium Level 136 mmol/L (136-145) Potassium Level 4.4 mmol/L (3.5-5.1) Chloride Level 98 mmol/L (98-107) Carbon Dioxide Level 30 mmol/L (21-32) Anion Gap 8 (6-14) Blood Urea Nitrogen 10 mg/dL (8-26) Creatinine 0.9 mg/dL (0.7-1.3) Estimated GFR (Cockcroft-Gault) 82.7 BUN/Creatinine Ratio 11 (6-20) Glucose Level 98 mg/dL (70-99) Calcium Level 8.7 mg/dL (8.5-10.1) Total Bilirubin 0.4 mg/dL (0.2-1.0) Aspartate Amino Transf (AST/SGOT) 21 U/L (15-37) Alanine Aminotransferase (ALT/SGPT) 14 U/L (16-63) Alkaline Phosphatase 139 U/L (46-116) Total Protein 6.7 g/dL (6.4-8.2) Albumin 2.1 g/dL (3.4-5.0) Albumin/Globulin Ratio 0.5 (1.0-1.7) Medications Active Scripts Medications Dose Route/Sig Max Daily Dose Days Date Category Flomax (Tamsulosin Hcl) 0.4 Mg Cap.er.24h 0.4 Mg PO BID 08/14/16 Rx Hydrocodone-Apap 5-325 (Hydrocodone Bit/Acetaminophen) 1 Each Tablet 1 Tab PO PRN Q6HRS PRN 08/14/16 Rx Cefpodoxime Proxetil 100 Mg Tablet 200 Mg PO BID 08/14/16 Rx Metamucil (Psyllium Husk) 0.52 Gm Capsule 0.52 Gm PO PRN DAILY PRN 08/08/16 Reported Hydrochlorothiazide Tablet (Hydrochlorothiazide) 12.5 Mg Tablet 25 Mg PO DAILY 08/08/16 Reported Aspir 81 (Aspirin) 81 Mg Tablet.dr 1 Tab PO DAILY 08/08/16 Reported Maalox Maximum Strength Susp (Mag Hydrox/Al Hydrox/Simeth) 355 Ml Oral.susp 355 Ml PO DAILY 08/08/16 Reported Omeprazole 20 Mg Capsule.dr 1 Cap PO DAILYWSUP 08/08/16 Reported Potassium Chloride 10 Meq Tab.er.prt 10 Meq PO DAILY 02/24/15 Reported Tamsulosin Hcl 0.4 Mg Cap.er.24h 0.4 Mg PO 02/18/13 Reported B-12 (Cyanocobalamin (Vitamin B-12)) 1,000 Mcg Tablet.er 1,000 Mcg PO 02/18/13 Reported Metoprolol Tartrate 25 Mg Tablet 25 Mg PO BID 02/18/13 Reported Magnesium (Magnesium Oxide) 400 Mg Capsule 400 Mg PO 02/18/13 Reported Folic Acid 0.8 Mg Tablet 0.8 Mg PO 02/18/13 Reported D3 + K2 Dots 1,000 Units Tab (Vitamin D3/Vitamin K2) 1 Each Tab.rapdis 1 Each PO 02/18/13 Reported Simvastatin 40 Mg Tablet 40 Mg PO QHS 02/18/13 Reported Nitrostat (Nitroglycerin) 0.4 Mg Tab.subl 0.4 Mg SL 02/18/13 Reported Impression . full consult dictated thanks d/w dr Landrum and Kyler Possible transfer to ELDA CHUNG MD Aug 29, 2016 16:36
--- NOTE | 2016-08-29 16:42 | PDOC ---
PROGRESS NOTES Chief Complaint Chief Complaint H/O Esoph cancer with chemo, radiation and surgery Gastric pull through after partial esophagectomy several years ago Recent embolization of a gastric bleed last week now with a leak into the pleural space Anemia Chest discomfort and soa from above. History of Present Illness History of Present Illness Seen and examined [facility] KRISTIE HUTCHINS and Dr Hills and Dr Hartmann and Dr Jaimes Vitals Vitals Vital Signs Date Time Temp Pulse Resp B/P (MAP) Pulse Ox O2 Delivery O2 Flow Rate FiO2 08/29/16 15:49 97 Room Air 94.0 08/29/16 15:00 98.5 90 18 115/72 (86) 98.5 Physical Exam General: Alert, Oriented X3, Cooperative, No acute distress Heart: Regular rate, Normal S1, Normal S2 Lungs: Clear Abdomen: Soft, No tenderness Extremities: No cyanosis, No edema Skin: No breakdown, No significant lesion Labs LABS Laboratory Tests Test 08/29/16 02:55 White Blood Count 16.2 x10^3/uL (4.0-11.0) Red Blood Count 2.79 x10^6/uL (4.30-5.70) Hemoglobin 7.5 g/dL (13.0-17.5) Hematocrit 23.2 % (39.0-53.0) Mean Corpuscular Volume 83 fL (79-100) Mean Corpuscular Hemoglobin 27 pg (25-35) Mean Corpuscular Hemoglobin Concent 32 g/dL (31-37) Red Cell Distribution Width 15.1 % (11.5-14.5) Platelet Count 429 x10^3/uL (140-400) Neutrophils (%) (Auto) 81 % (31-73) Lymphocytes (%) (Auto) 6 % (24-48) Monocytes (%) (Auto) 13 % (0-9) Eosinophils (%) (Auto) 0 % (0-3) Basophils (%) (Auto) 0 % (0-3) Neutrophils # (Auto) 13.2 x10^3uL (1.8-7.7) Lymphocytes # (Auto) 0.9 x10^3/uL (1.0-4.8) Monocytes # (Auto) 2.0 x10^3/uL (0.0-1.1) Eosinophils # (Auto) 0.0 x10^3/uL (0.0-0.7) Basophils # (Auto) 0.1 x10^3/uL (0.0-0.2) Sodium Level 136 mmol/L (136-145) Potassium Level 4.4 mmol/L (3.5-5.1) Chloride Level 98 mmol/L (98-107) Carbon Dioxide Level 30 mmol/L (21-32) Anion Gap 8 (6-14) Blood Urea Nitrogen 10 mg/dL (8-26) Creatinine 0.9 mg/dL (0.7-1.3) Estimated GFR (Cockcroft-Gault) 82.7 BUN/Creatinine Ratio 11 (6-20) Glucose Level 98 mg/dL (70-99) Calcium Level 8.7 mg/dL (8.5-10.1) Total Bilirubin 0.4 mg/dL (0.2-1.0) Aspartate Amino Transf (AST/SGOT) 21 U/L (15-37) Alanine Aminotransferase (ALT/SGPT) 14 U/L (16-63) Alkaline Phosphatase 139 U/L (46-116) Total Protein 6.7 g/dL (6.4-8.2) Albumin 2.1 g/dL (3.4-5.0) Albumin/Globulin Ratio 0.5 (1.0-1.7) Review of Systems Review of Systems co pain co cough with soa Assessment and Plan Assessmemt and Plan Problems Medical Problems: (1) Pneumonia Status: Acute H/O Esoph cancer with chemo, radiation and surgery Gastric pull through after partial esophagectomy several years ago Recent embolization of a gastric bleed last week now with a leak into the pleural space Anemia Chest discomfort and soa from above. Plan Transfer to ? They are at capacity, but will call. Labs ekg monitor tech Home meds PPI Prog guarded Problems: Comment Review of Relevant I have reviewed the following items indigo (where applicable) has been applied. Labs Laboratory Tests Test 08/28/16 13:30 08/28/16 13:45 08/29/16 02:55 Urine Collection Type Unknown Urine Color Yellow Urine Clarity Clear Urine pH 7.5 Urine Specific [place] 1.015 Urine Protein Negative mg/dL (NEG-TRACE) Urine Glucose (UA) Negative mg/dL (NEG) Urine Ketones (Stick) Negative mg/dL (NEG) Urine Blood Negative (NEG) Urine Nitrite Negative (NEG) Urine Bilirubin Negative (NEG) Urine Urobilinogen Dipstick 0.2 mg/dL (0.2 mg/dL) Urine Leukocyte Esterase Small (NEG) Urine RBC 0 /HPF (0-2) Urine WBC 5-10 /HPF (0-4) Urine Transitional Epithelial Cells Few /LPF Urine Amorphous Sediment Present /HPF Urine Bacteria 0 /HPF (0-FEW) Urine Hyaline Casts Moderate /HPF Urine Mucus Mod /LPF White Blood Count 18.8 x10^3/uL (4.0-11.0) 16.2 x10^3/uL (4.0-11.0) Red Blood Count 3.40 x10^6/uL (4.30-5.70) 2.79 x10^6/uL (4.30-5.70) Hemoglobin 9.1 g/dL (13.0-17.5) 7.5 g/dL (13.0-17.5) Hematocrit 28.7 % (39.0-53.0) 23.2 % (39.0-53.0) Mean Corpuscular Volume 84 fL (79-100) 83 fL (79-100) Mean Corpuscular Hemoglobin 27 pg (25-35) 27 pg (25-35) Mean Corpuscular Hemoglobin Concent 32 g/dL (31-37) 32 g/dL (31-37) Red Cell Distribution Width 14.9 % (11.5-14.5) 15.1 % (11.5-14.5) Platelet Count 582 x10^3/uL (140-400) 429 x10^3/uL (140-400) Neutrophils (%) (Auto) 83 % (31-73) 81 % (31-73) Lymphocytes (%) (Auto) 6 % (24-48) 6 % (24-48) Monocytes (%) (Auto) 11 % (0-9) 13 % (0-9) Eosinophils (%) (Auto) 0 % (0-3) 0 % (0-3) Basophils (%) (Auto) 0 % (0-3) 0 % (0-3) Neutrophils # (Auto) 15.6 x10^3uL (1.8-7.7) 13.2 x10^3uL (1.8-7.7) Lymphocytes # (Auto) 1.1 x10^3/uL (1.0-4.8) 0.9 x10^3/uL (1.0-4.8) Monocytes # (Auto) 2.0 x10^3/uL (0.0-1.1) 2.0 x10^3/uL (0.0-1.1) Eosinophils # (Auto) 0.1 x10^3/uL (0.0-0.7) 0.0 x10^3/uL (0.0-0.7) Basophils # (Auto) 0.1 x10^3/uL (0.0-0.2) 0.1 x10^3/uL (0.0-0.2) Segmented Neutrophils % 85 % (35-66) Band Neutrophils % 3 % (0-9) Lymphocytes % 4 % (24-48) Monocytes % 8 % (0-10) Platelet Estimate Increased (ADEQUATE) Prothrombin Time 15.7 SEC (11.7-14.0) Prothromb Time International Ratio 1.3 (0.8-1.1) Sodium Level 134 mmol/L (136-145) 136 mmol/L (136-145) Potassium Level 4.4 mmol/L (3.5-5.1) 4.4 mmol/L (3.5-5.1) Chloride Level 95 mmol/L (98-107) 98 mmol/L (98-107) Carbon Dioxide Level 31 mmol/L (21-32) 30 mmol/L (21-32) Anion Gap 8 (6-14) 8 (6-14) Blood Urea Nitrogen 13 mg/dL (8-26) 10 mg/dL (8-26) Creatinine 1.1 mg/dL (0.7-1.3) 0.9 mg/dL (0.7-1.3) Estimated GFR (Cockcroft-Gault) 65.6 82.7 BUN/Creatinine Ratio 12 (6-20) 11 (6-20) Glucose Level 128 mg/dL (70-99) 98 mg/dL (70-99) Calcium Level 9.8 mg/dL (8.5-10.1) 8.7 mg/dL (8.5-10.1) Magnesium Level 2.3 mg/dL (1.8-2.4) Total Bilirubin 0.5 mg/dL (0.2-1.0) 0.4 mg/dL (0.2-1.0) Aspartate Amino Transf (AST/SGOT) 17 U/L (15-37) 21 U/L (15-37) Alanine Aminotransferase (ALT/SGPT) 23 U/L (16-63) 14 U/L (16-63) Alkaline Phosphatase 83 U/L (46-116) 139 U/L (46-116) Creatine Kinase 25 U/L (39-308) Creatine Kinase MB (Mass) < 0.5 ng/mL (0.0-3.6) Creatine Kinase MB Relative Index 2.0 % (0-4) Troponin I Quantitative < 0.017 ng/mL (0.000-0.055) KO-Fdx-W-Type Natriuretic Peptide 302 pg/mL (0-124) Total Protein 8.5 g/dL (6.4-8.2) 6.7 g/dL (6.4-8.2) Albumin 2.8 g/dL (3.4-5.0) 2.1 g/dL (3.4-5.0) Albumin/Globulin Ratio 0.5 (1.0-1.7) 0.5 (1.0-1.7) Lipase 71 U/L (73-393) Laboratory Tests Test 08/29/16 02:55 White Blood Count 16.2 x10^3/uL (4.0-11.0) Red Blood Count 2.79 x10^6/uL (4.30-5.70) Hemoglobin 7.5 g/dL (13.0-17.5) Hematocrit 23.2 % (39.0-53.0) Mean Corpuscular Volume 83 fL (79-100) Mean Corpuscular Hemoglobin 27 pg (25-35) Mean Corpuscular Hemoglobin Concent 32 g/dL (31-37) Red Cell Distribution Width 15.1 % (11.5-14.5) Platelet Count 429 x10^3/uL (140-400) Neutrophils (%) (Auto) 81 % (31-73) Lymphocytes (%) (Auto) 6 % (24-48) Monocytes (%) (Auto) 13 % (0-9) Eosinophils (%) (Auto) 0 % (0-3) Basophils (%) (Auto) 0 % (0-3) Neutrophils # (Auto) 13.2 x10^3uL (1.8-7.7) Lymphocytes # (Auto) 0.9 x10^3/uL (1.0-4.8) Monocytes # (Auto) 2.0 x10^3/uL (0.0-1.1) Eosinophils # (Auto) 0.0 x10^3/uL (0.0-0.7) Basophils # (Auto) 0.1 x10^3/uL (0.0-0.2) Sodium Level 136 mmol/L (136-145) Potassium Level 4.4 mmol/L (3.5-5.1) Chloride Level 98 mmol/L (98-107) Carbon Dioxide Level 30 mmol/L (21-32) Anion Gap 8 (6-14) Blood Urea Nitrogen 10 mg/dL (8-26) Creatinine 0.9 mg/dL (0.7-1.3) Estimated GFR (Cockcroft-Gault) 82.7 BUN/Creatinine Ratio 11 (6-20) Glucose Level 98 mg/dL (70-99) Calcium Level 8.7 mg/dL (8.5-10.1) Total Bilirubin 0.4 mg/dL (0.2-1.0) Aspartate Amino Transf (AST/SGOT) 21 U/L (15-37) Alanine Aminotransferase (ALT/SGPT) 14 U/L (16-63) Alkaline Phosphatase 139 U/L (46-116) Total Protein 6.7 g/dL (6.4-8.2) Albumin 2.1 g/dL (3.4-5.0) Albumin/Globulin Ratio 0.5 (1.0-1.7) Microbiology 08/28/16 Urine Culture - Preliminary, Resulted 08/28/16 Urine Culture Result 1 (ROLA) - Preliminary, Resulted Medications Current Medications Fentanyl Citrate (Fentanyl 2ml Vial) 25 mcg 1X ONCE IV Last administered on 14:40; Start 08/28/16 at 14:15; Stop 08/28/16 at 14:16; Status DC Iohexol (Omnipaque 350 Mg/ml) 90 ml 1X ONCE IV Last administered on 08/28/16 15:09; Start 08/28/16 at 15:00; Stop 08/28/16 at 15:01; Status DC Info (Do NOT chart on this entry -- for MONITORING) 1 each PRN DAILY PRN MC SEE COMMENTS; Start 08/28/16 at 15:00; Stop 08/30/16 at 14:59; Status Cancel Levofloxacin/ Dextrose 150 ml @ 100 mls/hr Q24H IV Last administered on 18:44; Start 08/28/16 at 18:00; Stop 09/01/16 at 19:29 Sodium Chloride 1,000 ml @ 125 mls/hr 1X ONCE IV Last administered on 18:43; Start 08/28/16 at 17:45; Stop 08/29/16 at 01:44; Status DC Fentanyl Citrate (Fentanyl 2ml Vial) 50 mcg PRN Q1HR PRN IV PAIN Last administered on 08/28/16 19:34; Start 08/28/16 at 17:45; Stop 08/28/16 at 20:41 ; Status DC Sodium Chloride 1,000 ml @ 125 mls/hr 1X ONCE IV Last administered on 19:36; Start 08/28/16 at 17:45; Stop 08/29/16 at 01:44; Status DC Metoprolol Tartrate (Lopressor) 25 mg BID PO Last administered on 08/29/16 11: 03; Start 08/28/16 at 21:00 Nitroglycerin (Nitrostat) 0.4 mg PRN Q15MIN PRN SL CHEST PAIN; Start 08/28/16 at 20:30 Potassium Chloride (Klor-Con) 10 meq DAILYWBKFT PO ; Start 08/29/16 at 08:00 Simvastatin (Zocor) 40 mg QHS PO ; Start 08/28/16 at 21:00 Tamsulosin HCl (Flomax) 0.4 mg DAILY PO Last administered on 08/29/16 11:04; Start 08/29/16 at 09:00 Hydrochlorothiazide (Hydrodiuril) 25 mg DAILY PO Last administered on 11:04; Start 08/29/16 at 09:00 Pantoprazole Sodium (Protonix) 40 mg DAILYWSUP PO ; Start 08/28/16 at 21:00; Stop 08/29/16 at 08:45; Status DC Vitamin B Complex (Folbic Tablet) 1 tab DAILY PO ; Start 08/29/16 at 09:00 Vitamin D (Vitamin D3) 1,000 unit DAILY PO ; Start 08/29/16 at 09:00 Oxycodone HCl 5 mg PRN Q4HRS PRN PO MODERATE PAIN; Start 08/28/16 at 20:45 Fentanyl Citrate (Fentanyl 2ml Vial) 25 mcg PRN Q1HR PRN IV severe pain, 2nd choice Last administered on 08/29/16 15:49; Start 08/28/16 at 20:45 Oxycodone HCl 10 mg PRN Q4HRS PRN PO SEVERE PAIN; Start 08/28/16 at 20:45 Pantoprazole Sodium (Protonix Vial) 40 mg DAILYAC IVP Last administered on 08/29 11:00; Start 08/29/16 at 09:00 Iohexol (Omnipaque 350 Mg/ml) 200 ml 1X ONCE PO Last administered on 10:23; Start 08/29/16 at 09:45; Stop 08/29/16 at 09:49; Status DC Barium Sulfate (Liquid E-Z Paque) 355 ml 1X ONCE PO Last administered on 10:24; Start 08/29/16 at 09:45; Stop 08/29/16 at 09:49; Status DC Barium Sulfate (E-Z-Hd) 340 gm 1X ONCE PO ; Start 08/29/16 at 09:45; Stop 08/29 at 09:49; Status DC Info (Do NOT chart on this entry -- for MONITORING) 1 each PRN DAILY PRN MC SEE COMMENTS; Start 08/29/16 at 10:00; Stop 08/31/16 at 09:59 Fentanyl Citrate (Fentanyl 2ml Vial) 50 mcg PRN Q2HR PRN IV PAIN; Start at 11:00; Status Cancel Lidocaine/Sodium Bicarbonate (Buffered Lidocaine 1%) 20 ml STK-MED ONCE IJ ; Start 08/29/16 at 13:54; Stop 08/29/16 at 13:55; Status DC Fentanyl Citrate (Fentanyl 2ml Vial) 100 mcg STK-MED ONCE .ROUTE ; Start at 14:07; Stop 08/29/16 at 14:08; Status DC Active Scripts Active Flomax (Tamsulosin Hcl) 0.4 Mg Cap.er.24h 0.4 Mg PO BID Hydrocodone-Apap 5-325 (Hydrocodone Bit/Acetaminophen) 1 Each Tablet 1 Tab PO PRN Q6HRS PRN Cefpodoxime Proxetil 100 Mg Tablet 200 Mg PO BID Reported Metamucil (Psyllium Husk) 0.52 Gm Capsule 0.52 Gm PO PRN DAILY PRN Hydrochlorothiazide Tablet (Hydrochlorothiazide) 12.5 Mg Tablet 25 Mg PO DAILY Aspir 81 (Aspirin) 81 Mg Tablet.dr 1 Tab PO DAILY Maalox Maximum Strength Susp (Mag Hydrox/Al Hydrox/Simeth) 355 Ml Oral.susp 355 Ml PO DAILY Omeprazole 20 Mg Capsule.dr 1 Cap PO DAILYWSUP Potassium Chloride 10 Meq Tab.er.prt 10 Meq PO DAILY Tamsulosin Hcl 0.4 Mg Cap.er.24h 0.4 Mg PO B-12 (Cyanocobalamin (Vitamin B-12)) 1,000 Mcg Tablet.er 1,000 Mcg PO Metoprolol Tartrate 25 Mg Tablet 25 Mg PO BID Magnesium (Magnesium Oxide) 400 Mg Capsule 400 Mg PO Folic Acid 0.8 Mg Tablet 0.8 Mg PO D3 + K2 Dots 1,000 Units Tab (Vitamin D3/Vitamin K2) 1 Each Tab.rapdis 1 Each PO Simvastatin 40 Mg Tablet 40 Mg PO QHS Nitrostat (Nitroglycerin) 0.4 Mg Tab.subl 0.4 Mg SL Vitals/I & O Vital Sign - Last 24 Hours 08/28/16 08/28/16 08/28/16 08/28/16 19:15 21:00 23:08 23:15 Temp 98.3 98.6 98.3 98.6 Pulse 100 100 101 Resp 20 18 B/P (MAP) 125/67 (86) 125/67 112/63 (79) Pulse Ox 97 96 O2 Delivery Room Air Room Air Room Air 08/29/16 08/29/16 08/29/16 08/29/16 03:20 07:00 10:39 10:59 Temp 99.0 98.3 98.6 99.0 98.3 98.6 Pulse 98 94 91 Resp 18 18 18 B/P (MAP) 114/58 (76) 118/66 (83) 112/66 (81) Pulse Ox 95 97 97 O2 Delivery Room Air Room Air Room Air Room Air O2 Flow Rate 94.0 94.0 08/29/16 08/29/16 08/29/16 08/29/16 11:03 13:17 15:00 15:27 Temp 98.5 98.5 Pulse 91 90 Resp 18 18 B/P (MAP) 112/66 115/72 (86) Pulse Ox 97 97 97 O2 Delivery Room Air Room Air Room Air O2 Flow Rate 94.0 94.0 08/29/16 15:49 Pulse Ox 97 O2 Delivery Room Air O2 Flow Rate 94.0 Intake and Output 08/28/16 08/28/16 08/29/16 15:00 23:00 07:00 Intake Total 100 ml Output Total 450 ml Balance -350 ml RAKESH LEUNG III DO Aug 29, 2016 16:42
[2016-08-29] MEDS: SIMVASTATIN 40 MG TABLET. PO SCH (21:00)
--- NOTE | 2016-08-29 22:58 | DS ---
DATE OF DISCHARGE: 08/29/2016 ADMISSION DIAGNOSIS: Pleural effusion. DISCHARGE DIAGNOSES: Right pleural effusion secondary to gastric contents leaking from a recent embolization of the stomach after a gastrointestinal bleed. CONSULTS: Dr. Jaimes and Dr. Hills. PROCEDURES: None. HOSPITAL COURSE: The patient is a pleasant elderly male who had a history of esophageal cancer, it was resected a few years ago. After that they did a gastric pull-up at . He has been doing relatively well. He did get some chemo and radiation. Last week he presented with a GI bleed that was embolized by Dr. Jaimes. He has been doing well, but now the bleed has apparently become ischemic and is oozing gastric contents into the pleural space. I spoke with all the physicians involved including Dr. Hartmann. We plan to transfer to . I did call [facility]. The patient has been accepted by Dr. Ken. DISPOSITION: . ACTIVITY: As tolerated. DIET: Low sodium. MEDICATIONS: Please see the MRAD. TOTAL TIME: 42 minutes. RAKESH LEUNG DO DR: ROMIE/roni JOB#: [id number] / [id number]
--- NOTE | 2016-08-30 05:50 | CONS ---
DATE OF CONSULTATION: 08/29/2016 REFERRING PROVIDER: Dr. Chávez. REASON FOR CONSULTATION: Esophageal cancer. 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 He then underwent adjuvant chemotherapy as well. In 03/2014, he had sawyer metastases on PET scan and was deemed not to be a surgical candidate due to their location. He completed chemoradiation at that time. He has had stable right paratracheal uptake on PET scan since that time, with his last PET scan in 06/2016 remaining stable. Our plan was to continue to follow him with observation and to scan him annually. We were consulted on this admission where he has presented with worsening chronic right-sided rib pain, which sounds like it has been present at least for the last month. He was admitted to the hospital a few weeks ago with a GI bleed, which stabilized following IR embolization of the inferior gastric artery. CTA of the chest, abdomen and pelvis reveals a 12.6 x 2.6 x 8.7 cm fluid collection in the right lung base pleura abutting his gastric pull through. Complicated pneumonia with effusion versus anastomotic leak is considered. An esophagram has been ordered. He has been started on Levaquin. IR-guided thoracentesis also has been requested. He denies any fevers, chills, drastic unintentional weight loss. He does even deny any shortness of breath or cough. It has just been this right-sided rib pain, which has been problematic for him. PAST MEDICAL HISTORY: Hypertension, esophageal cancer, heart disease, diverticulitis, BPH, hyperlipidemia, recent GI bleed. PAST SURGICAL HISTORY: Cholecystectomy, PCI, tonsillectomy, esophagectomy, partial thyroidectomy, recent IR embolization of the inferior gastric artery. FAMILY HISTORY: Mom with heart disease. Dad with a history of melanoma and prostate cancer. Brother with prostate cancer. Sister with early stage melanoma. SOCIAL HISTORY: Previously smoked 2 packs a day for 25 years and quit in 1984. He now drinks alcohol only socially and denies any drug use. ALLERGIES: PENICILLIN AND MORPHINE. CURRENT MEDICATIONS: Fentanyl, pantoprazole, vitamin D, vitamin B, hydrochlorothiazide, Flomax, potassium chloride, simvastatin, metoprolol, oxycodone, nitroglycerin p.r.n., Levaquin. PHYSICAL EXAMINATION: VITAL SIGNS: Temperature 98.6, pulse 91, respiratory rate 18, blood pressure 112/66, 97% O2 on room air. GENERAL: He is alert and oriented, though does appear fatigued. He does not have any significant distress at this time. HEENT: Extraocular muscle strength is intact. Mucous membranes are moist. CARDIOVASCULAR: Heart is regular in rhythm and rate. LUNGS: Clear to auscultation with decreased breath sounds in the right base. He does hesitate to take deep breath as well due to the pain. ABDOMEN: Soft, nontender, only pain in the right lower part of his ribs. EXTREMITIES: No edema. NEUROLOGIC: No focal deficits. IMAGING AND LABORATORY DATA: CTA findings reviewed as above. Previous PET scan findings reviewed as above. Esophagram study pending. He has had ____ neutrophilia since at least early 08/2016. Currently, his WBC is 16.9, ANC 13.2, hemoglobin 7.5, platelets 429. ASSESSMENT AND PLAN: The patient is a 75-year-old male with the following medical problems: 1. History of stage 3A adenocarcinoma of the esophagus, status post neoadjuvant chemoradiation, esophagectomy with 3/16 lymph nodes involved in adjuvant chemotherapy completed in 08/2012. He had sawyer metastases in the thoracic outlet and in 03/2014 completed chemoradiation with no additional signs of reoccurrence. Last PET scan was in 06/2016 and showed stable right paratracheal and right femoral diaphysis uptake. His next followup visit is scheduled in December. Clinically, it seems his esophageal cancer history is stable, but certainly we should send for cytology if any of the fluid is aspirated. 2. Right rib pain, likely associated with complicated pneumonia with associated effusion versus anastomotic leak. Esophagram is pending. IR aspiration of fluid has been requested. He is also on Levaquin. 3. Recent gastrointestinal bleed. Slight decrease in his hemoglobin overnight is more likely fluid related. We will continue to follow and transfuse for hemoglobin less than 7. Clinically, it does not appear that he has any ongoing bleeding. Thank you for alerting us of his admission. MAIN RODRIGUES DO DR: JAYMIE/roni JOB#: [id number] / [id number] CLARISSE
--- NOTE | 2016-08-30 12:09 | CONS ---
DATE OF CONSULTATION: 08/29/2016 ATTENDING PHYSICIAN: Dr. Ana Maria Adam. REASON FOR CONSULTATION: The patient is seen in pulmonary consultation at the request of Dr. Chávez for abnormal CT of the chest. HISTORY OF PRESENT ILLNESS: The patient is a 75-year-old with a history of esophageal cancer, status post resection and chemoradiation back in 2011. Approximately a month ago, he presented with a GI bleed. He underwent embolization at that time. Since then, the patient has been experiencing on and off discomfort on the right chest to the point where he is unable to take a deep breath at times. He denies any associated acute onset of dyspnea with syncopal episode. He has had no previous history of DVT or pulmonary embolism. The patient presented and had a CT of the chest. I personally reviewed the CT, there were several findings including the possibility of an esophageal pleural fistula. PAST MEDICAL HISTORY: As above, esophageal cancer, status post chemoradiation; coronary artery disease with previous myocardial infarction underwent stent placement at that time. PAST SURGICAL HISTORY: Status post endarterectomy, esophagectomy. FAMILY HISTORY: No cancer. SOCIAL HISTORY: He quit tobacco and denies any alcohol intake. ALLERGIES: MORPHINE AND PENICILLIN. REVIEW OF SYSTEMS: As indicated above, otherwise, a 10-point system was reviewed and negative. MEDICATIONS: List was reviewed. Please see the MRAD. PHYSICAL EXAMINATION: GENERAL: The patient was in no significant respiratory distress. VITAL SIGNS: Stable. O2 saturation was greater than 92%. He appeared to be chronically ill and cachectic. HEENT: Eyes, the sclerae were nonicteric. NECK: Jugular venous distention was not elevated. No lymphadenopathy. CHEST: Full expansion. LUNGS: Diminished breath sounds in the right base, otherwise clear. No wheezes. CARDIOVASCULAR: Regular rate and rhythm with S1, S2, no S3. ABDOMEN: Soft, nontender, nondistended. EXTREMITIES: No clubbing, cyanosis, or edema. NEUROLOGIC: The patient was awake, alert, following commands. A detailed neuro exam was not performed. LABORATORY DATA: Reviewed. White count was elevated. Hemoglobin and hematocrit were noted. INR was 1.3. Electrolytes noted. Albumin was low. CT chest as indicated above. IMPRESSION: 1. Chest pain secondary to pleurisy. 2. 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 3. Esophageal cancer, status post chemoradiation and resection in 2011. 4. Recent gastrointestinal bleed with embolectomy. 5. Possible pneumonia. PLAN: Case was discussed with Dr. Hills. The patient underwent an esophogram earlier today. There was no leak. Dr. Hills is going to perform a thoracentesis. Upon further imaging, there was leakage of Omnipaque into the pleural space. Case was discussed with multiple physicians including Dr. Hills and Dr. Chávez. He will be transferred to [facility] for further evaluation and management. He is to maintain an n.p.o. status at this time. I do appreciate the privilege in sharing the patient's care. ELDA SKINNER MD DR: CYNDEE/roni JOB#: [id number] / [id number]
== END 2016-08-29 21:15 | disposition short-term general hospital (02) | DRG 393 ==
LOC: ER 13:11 → 6 SOUTH 17:08
PROVIDERS: ADMIT Internal Medicine Hematology & Oncology; ATTEND Internal Medicine Hematology & Oncology
DX: K91.89 Other postprocedural complications and disorders of digestive system (principal); J18.9 Pneumonia, unspecified organism; E43 Unspecified severe protein-calorie malnutrition; J90 Pleural effusion, not elsewhere classified; K55.1 Chronic vascular disorders of intestine; J44.0 Chronic obstructive pulmonary disease with (acute) lower respiratory infection; E78.00 Pure hypercholesterolemia, unspecified; E78.5 Hyperlipidemia, unspecified; I10 Essential (primary) hypertension; I25.10 Atherosclerotic heart disease of native coronary artery without angina pectoris; K21.9 Gastro-esophageal reflux disease without esophagitis; K27.9 Peptic ulcer, site unspecified, unspecified as acute or chronic, without hemorrhage or perforation; K57.90 Diverticulosis of intestine, part unspecified, without perforation or abscess without bleeding; Y83.9 Surgical procedure, unspecified as the cause of abnormal reaction of the patient, or of later complication, without mention of misadventure at the time of the procedure; M19.90 Unspecified osteoarthritis, unspecified site; R63.4 Abnormal weight loss; E89.0 Postprocedural hypothyroidism; D64.9 Anemia, unspecified; N40.0 Benign prostatic hyperplasia without lower urinary tract symptoms; Z80.42 Family history of malignant neoplasm of prostate; Z80.8 Family history of malignant neoplasm of other organs or systems; Z82.49 Family history of ischemic heart disease and other diseases of the circulatory system; I25.2 Old myocardial infarction; Z85.01 Personal history of malignant neoplasm of esophagus; Z92.21 Personal history of antineoplastic chemotherapy; Z87.891 Personal history of nicotine dependence; Z95.5 Presence of coronary angioplasty implant and graft; Z92.3 Personal history of irradiation; Z68.23 Body mass index [BMI] 23.0-23.9, adult; Z88.5 Allergy status to narcotic agent; Z88.0 Allergy status to penicillin; R09.1 Pleurisy
CPT/HCPCS: 36415; 71010; 71250; 71275; 74174; 74220; 80053; 81001; 82553; 83690; 83735; 83880; 84484; 85007; 85027; 85610; 87040; 87086; 93005; 93306; 96361; 96374; A6539; C9113; J1956; J3010; J7030; Q9967; 99285-25

== ENCOUNTER 2018-09-11 22:41 | Emergency (ER) | payer OTHER ==
[~2018-09-11] VITALS: Ht 168.3 cm; Wt 68.0 kg
[~2018-09-11 22:41] MED LIST changes: -BENA20TA2 PO; +BENA20TA4 PO; -HYDR-2758 PO; +HYDR-2761 PO; +OMEP20CA10 PO; -OMEP20CA9 PO; -PANT40TA5 PO; +PANT40TA77 PO
[2018-09-11 23:36] LABS: BILIRUBIN,URINE NEGATIVE (NEG); CLARITY,URINE CLEAR; COLOR,URINE YELLOW; NITRITE,URINE NEGATIVE (NEG); PROTEIN,URINE NEGATIVE (NEG-TRACE); UROBILINOGEN,URINE 0.2 mg/dL (0.2 mg/dL)
[2018-09-11 23:40] LABS: BACTERIA,URINE 0 /HPF (0-FEW); SQUAMOUS EPITHELIAL CELL,UR FEW /LPF; WBC,URINE 0 /HPF (0-4)
[2018-09-11 23:45] VITALS: BP 186/84
--- NOTE | 2018-09-12 00:04 | PHYS DOC ---
Past Medical History Past Medical History: CAD, Cancer, High Cholesterol, Hypertension, Other Additional Past Medical Histor: ESOPHAGUS CANCER 2011,DC 2011 W STENT X 1, (DANIEL GREENWOOD TESTING PROJECTS ADMINISTRATOR) Past Surgical History: Other Additional Past Surgical Histo: CARDIAC STENTS,THYROIDECTOMY,PARTAIL ESOPH. REMOVAL (DANIEL GREENWOOD TESTING PROJECTS ADMINISTRATOR) Alcohol Use: Occasionally Drug Use: None (DANIEL GREENWOOD TESTING PROJECTS ADMINISTRATOR) Adult General Chief Complaint Chief Complaint: URINARY RETENTION HPI HPI Patient is a 77 year old male who presents with states he's been unable to piece 1830 tonight. Patient states this happened once before 3 years ago in his bladder was drained and after that. No problems. Patient states he thinks that he over ate of which cause this to happen. Patient has had his esophagus and stomach removed due to cancer. Is currently on Flomax and does have an enlarged prostate. Patient see Dr Shreyas Monaco urologist. (DANIEL GREENWOOD TESTING PROJECTS ADMINISTRATOR) Review of Systems Review of Systems Constitutional: Denies fever or chills [] Eyes: Denies change in visual acuity, redness, or eye pain [] HENT: Denies nasal congestion or sore throat [] Respiratory: Denies cough or shortness of breath [] Cardiovascular: No additional information not addressed in HPI [] GI: Denies abdominal pain, nausea, vomiting, bloody stools or diarrhea [] : Urinary retention. Denies dysuria or hematuria [] Musculoskeletal: Denies back pain or joint pain [] Integument: Denies rash or skin lesions [] Neurologic: Denies headache, focal weakness or sensory changes [] Endocrine: Denies polyuria or polydipsia [] All other systems were reviewed and found to be within normal limits, except as documented in this note. (DANIEL GREENWOOD TESTING PROJECTS ADMINISTRATOR) Allergies Allergies Allergies Coded Allergies Type Severity Reaction Last Updated Verified morphine Allergy Intermediate HALLUCINATE 10/08/15 Yes Penicillins Allergy Mild JOINT PAIN 10/08/15 Yes (NOEL GUTIERREZ MD) Physical Exam Physical Exam Constitutional: Well developed, well nourished, no acute distress, non-toxic appearance. [] HENT: Normocephalic, atraumatic, bilateral external ears normal, oropharynx moist, no oral exudates, nose normal. [] Eyes: PERRLA, EOMI, conjunctiva normal, no discharge. [] Neck: Normal range of motion, no tenderness, supple, no stridor. [] Cardiovascular:Heart rate regular rhythm, no murmur [] Lungs & Thorax: Bilateral breath sounds clear to auscultation [] Abdomen: Pressure over bladder with palpation. Bowel sounds normal, soft, no tenderness, no masses, no pulsatile masses. [] Skin: Warm, dry, no erythema, no rash. [] Back: No tenderness, no CVA tenderness. [] Extremities: No tenderness, no cyanosis, no clubbing, ROM intact, no edema. [] Neurologic: Alert and oriented X 3, normal motor function, normal sensory function, no focal deficits noted. [] Psychologic: Affect normal, judgement normal, mood normal. [] (DANIEL GREENWOOD APRN) Current Patient Data Vital Signs Vital Signs Date Time Temp Pulse Resp B/P (MAP) Pulse Ox O2 Delivery O2 Flow Rate FiO2 09/11/18 23:45 87 18 98 09/11/18 22:49 97.7 191/99 (129) Room Air 97.7 (NOEL GUTIERREZ MD) Lab Values Laboratory Tests Test 09/11/18 23:30 Urine Collection Type Unknown Urine Color Yellow Urine Clarity Clear Urine pH 5.0 Urine Specific [place] 1.015 Urine Protein Negative mg/dL (NEG-TRACE) Urine Glucose (UA) 100 mg/dL (NEG) Urine Ketones (Stick) Negative mg/dL (NEG) Urine Blood Trace (NEG) Urine Nitrite Negative (NEG) Urine Bilirubin Negative (NEG) Urine Urobilinogen Dipstick 0.2 mg/dL (0.2 mg/dL) Urine Leukocyte Esterase Negative (NEG) Urine RBC 1-2 /HPF (0-2) Urine WBC 0 /HPF (0-4) Urine Squamous Epithelial Cells Few /LPF Urine Bacteria 0 /HPF (0-FEW) (NOEL GUTIERREZ MD) EKG EKG [] (DANIEL GREENWOOD APRN) Radiology/Procedures Radiology/Procedures [] (DANIEL GREENWOOD APRN) Course & Med Decision Making Course & Med Decision Making Patient is a 77 year old male who presents with states he's been unable to piece 1830 tonight. Patient states this happened once before 3 years ago and his bladder was drained and after that he had no problems urinating on his own. Patient states he thinks that he over ate of which cause this to happen. Patient has had his esophagus and stomach removed due to cancer. Patient Is currently on Flomax and does have an enlarged prostate. Patient see's Dr Shreyas Monaco urologist. 8/10 bladder pressure and discomfort. Abdomen is soft and nontender. Lungs are clear to auscultation all lobes. Vital signs are within normal limits. Afebrile. Patient denies nausea, vomiting, diarrhea, chest pain, shortness of air, or pain with urination. Bladder scanner showed 1100 mL in the bladder. Bladder is straight catheter and drained. Urinalysis shows no infection. Patient refusing to go home with a urinary catheter in place. Patient states he will come back in the morning if he is unable to urinate. Patient knows that he will have to have a urinary catheter in place if he has to come back and is unable to urinate. Patient states he understands and is fine with that plan. Patient states he will take th at chance. Patient currently has no pain or discomfort and states he feels fine now. Patient will continue to take Flomax and follow up with his urologist on Saturday. (DANIEL GREENWOOD APRN) Course & Med Decision Making Staff Physician Addendum: I was working in the ER during the course of this patient's visit. I was available for consultation as needed, but I was not directly involved in the care of this patient. (NOEL GUTIERREZ MD) Dragon Disclaimer Dragon Disclaimer This electronic medical record was generated, in whole or in part, using a voice recognition dictation system. (DANIEL GREENWOOD APRN) Departure Departure Impression: Primary Impression: Urinary retention Disposition: HOME, SELF-CARE Condition: STABLE Referrals: RENATA MORALES MD (PCP) Patient Instructions: Urinary Retention, Acute, Male Additional Instructions: Return if you're unable to urinate and again note that he will have to have a urinary catheter placed if you are unable to urinate. Continue taking Flomax and call her urologist first thing Saturday morning. DANIEL GREENWOOD APRN Sep 12, 2018 00:04 NOEL GUTIERREZ MD Sep 12, 2018 05:48
== END 2018-09-12 00:20 | disposition home or self-care (01) ==
LOC: ER 22:41
DX: R33.9 Retention of urine, unspecified (principal); I25.10 Atherosclerotic heart disease of native coronary artery without angina pectoris; E78.00 Pure hypercholesterolemia, unspecified; I10 Essential (primary) hypertension; I25.2 Old myocardial infarction; E89.0 Postprocedural hypothyroidism; Z88.0 Allergy status to penicillin; Z88.5 Allergy status to narcotic agent
CPT/HCPCS: 51701; 81001; 99285-25

== ENCOUNTER 2018-09-15 08:32 | Emergency (ER) | payer OTHER ==
[~2018-09-15] VITALS: Ht 167.6 cm; Wt 67.1 kg
[2018-09-15 09:07] LABS: BASO % 0 % (0-3); EOS # 0.1 x10^3/uL (0.0-0.7); EOS % 1 % (0-3); HEMATOCRIT 41.2 % (39.0-53.0); HEMOGLOBIN 14.2 g/dL (13.0-17.5); LYMPH # 0.9 x10^3/uL (1.0-4.8); LYMPH % 7 % (24-48); MEAN CORPUSCULAR HEMOGLOBIN 31 pg (25-35); MEAN CORPUSCULAR HGB CONC 34 g/dL (31-37); MEAN CORPUSCULAR VOLUME 90 fL (79-100); MONO # 1.3 x10^3/uL (0.0-1.1); MONO % 10 % (0-9); NEUT # 10.3 x10^3uL (1.8-7.7); NEUT % 81 % (31-73); PLATELET COUNT 152 x10^3/uL (140-400); RED BLOOD COUNT 4.58 x10^6/uL (4.30-5.70); WHITE BLOOD COUNT 12.6 x10^3/uL (4.0-11.0)
[2018-09-15 09:20] LABS: CREATININE 1.1 mg/dL (0.7-1.3); GFR 65.3; POTASSIUM 3.8 mmol/L (3.5-5.1)
--- NOTE | 2018-09-15 09:21 | PHYS DOC ---
Past Medical History Past Medical History: CAD, Cancer, High Cholesterol, Hypertension, Other Additional Past Medical Histor: ESOPHAGUS CANCER 2012,MA 2011 W STENT X 1, Past Surgical History: Other Additional Past Surgical Histo: CARDIAC STENTS,THYROIDECTOMY,PARTAIL ESOPH. REMOVAL Alcohol Use: Occasionally Drug Use: None Adult General Chief Complaint Chief Complaint: URINARY RETENTION HPI HPI Patient is a 77 year old male who presents with complaining of unable to urinat e. Patient states he was seen in this emergency room on September 11 because of urinary retention with 1100 and urinary bladder that was drained with straight catheter without sign of UTI. Patient states since last night he had problem with his urination with decrease of urine output. Patient states he was not able to urinate since this morning. Patient complaining of fever of 101 yesterday and decrease of appetite with nausea but the last couple days. Patient denies hematuria, chest pain, shortness of breath, dizziness and focal neurodeficit. Review of Systems Review of Systems Constitutional: Reports fever Eyes: Denies change in visual acuity, redness, or eye pain [] HENT: Denies nasal congestion or sore throat [] Respiratory: Denies cough or shortness of breath [] Cardiovascular: No additional information not addressed in HPI [] GI: Reports abdominal pain, nausea, denies vomiting, bloody stools or diarrhea [] : Denies dysuria or hematuria , reports urinary frequency and hesitancy[] Musculoskeletal: Denies back pain or joint pain [] Integument: Denies rash or skin lesions [] Neurologic: Denies headache, focal weakness or sensory changes [] Endocrine: Denies polyuria or polydipsia [] All other systems were reviewed and found to be within normal limits, except as documented in this note. Current Medications Current Medications Current Medications Medications (Trade) Dose Ordered Sig/Rita Start Time Stop Time Status Last Admin Dose Admin Ceftriaxone Sodium (Rocephin) 1 gm 1X ONCE 09/15/18 11:15 09/15/18 11:16 Allergies Allergies Allergies Coded Allergies Type Severity Reaction Last Updated Verified morphine Allergy Intermediate HALLUCINATE 10/08/15 Yes Penicillins Allergy Mild JOINT PAIN 10/08/15 Yes Physical Exam Physical Exam Constitutional: Well developed, well nourished, no acute distress, non-toxic tony earance. [] HENT: Normocephalic, atraumatic, oropharynx moist, no oral exudates, nose normal. [] Eyes: PERRLA, EOMI, conjunctiva normal, no discharge. [] Neck: Normal range of motion, no tenderness, supple, no stridor. [] Cardiovascular:Heart rate regular rhythm, no murmur [] Lungs & Thorax: Bilateral breath sounds clear to auscultation [] Abdomen: Bowel sounds normal, soft, no tenderness, no masses, no pulsatile masses. Bladder scan showed 60 mL of urine in the bladder. [] Skin: Warm, dry, no erythema, no rash. [] Back: No tenderness, no CVA tenderness. [] Extremities: No tenderness, no cyanosis, no clubbing, ROM intact, no edema. [] Neurologic: Alert and oriented X 3, normal motor function, normal sensory function, no focal deficits noted. [] Psychologic: Affect normal, judgement normal, mood normal. [] Current Patient Data Vital Signs Vital Signs Date Time Temp Pulse Resp B/P (MAP) Pulse Ox O2 Delivery O2 Flow Rate FiO2 09/15/18 08:50 98.1 90 20 141/72 (95) 97 Room Air 98.1 Lab Values Laboratory Tests Test 09/15/18 08:57 09/15/18 10:05 White Blood Count 12.6 x10^3/uL (4.0-11.0) H Red Blood Count 4.58 x10^6/uL (4.30-5.70) Hemoglobin 14.2 g/dL (13.0-17.5) Hematocrit 41.2 % (39.0-53.0) Mean Corpuscular Volume 90 fL (79-100) Mean Corpuscular Hemoglobin 31 pg (25-35) Mean Corpuscular Hemoglobin Concent 34 g/dL (31-37) Red Cell Distribution Width 20.0 % (11.5-14.5) H Platelet Count 152 x10^3/uL (140-400) Neutrophils (%) (Auto) 81 % (31-73) H Lymphocytes (%) (Auto) 7 % (24-48) L Monocytes (%) (Auto) 10 % (0-9) H Eosinophils (%) (Auto) 1 % (0-3) Basophils (%) (Auto) 0 % (0-3) Neutrophils # (Auto) 10.3 x10^3uL (1.8-7.7) H Lymphocytes # (Auto) 0.9 x10^3/uL (1.0-4.8) L Monocytes # (Auto) 1.3 x10^3/uL (0.0-1.1) H Eosinophils # (Auto) 0.1 x10^3/uL (0.0-0.7) Basophils # (Auto) 0.0 x10^3/uL (0.0-0.2) Sodium Level 135 mmol/L (136-145) L Potassium Level 3.8 mmol/L (3.5-5.1) Chloride Level 98 mmol/L (98-107) Carbon Dioxide Level 29 mmol/L (21-32) Anion Gap 8 (6-14) Blood Urea Nitrogen 14 mg/dL (8-26) Creatinine 1.1 mg/dL (0.7-1.3) Estimated GFR (Cockcroft-Gault) 65.3 BUN/Creatinine Ratio 13 (6-20) Glucose Level 161 mg/dL (70-99) H Lactic Acid Level 2.0 mmol/L (0.4-2.0) Calcium Level 9.0 mg/dL (8.5-10.1) Total Bilirubin 0.8 mg/dL (0.2-1.0) Aspartate Amino Transferase (AST) 14 U/L (15-37) L Alanine Aminotransferase (ALT) 19 U/L (16-63) Alkaline Phosphatase 139 U/L (46-116) H Total Protein 7.5 g/dL (6.4-8.2) Albumin 3.3 g/dL (3.4-5.0) L Albumin/Globulin Ratio 0.8 (1.0-1.7) L Urine Collection Type Unknown Urine Color Yellow Urine Clarity Cloudy Urine pH 6.5 Urine Specific [place] <=1.005 Urine Protein Negative mg/dL (NEG-TRACE) Urine Glucose (UA) Negative mg/dL (NEG) Urine Ketones (Stick) Negative mg/dL (NEG) Urine Blood Moderate (NEG) Urine Nitrite Positive (NEG) Urine Bilirubin Negative (NEG) Urine Urobilinogen Dipstick 0.2 mg/dL (0.2 mg/dL) Urine Leukocyte Esterase Large (NEG) Urine RBC Fobs /HPF (0-2) Urine WBC Tntc /HPF (0-4) Urine Bacteria Many /HPF (0-FEW) Laboratory Tests 09/15/18 08:57 Laboratory Tests 09/15/18 08:57 EKG EKG [] Radiology/Procedures Radiology/Procedures [] Course & Med Decision Making Course & Med Decision Making Pertinent Labs reviewed. (See chart for details) Evaluation of patient in ER showed 77-year-old male patient with complaining of urinary retention and dysuria. Patient had recent ER visit with strait urine catheter for urinary retention. Patient did not have fever or hypotension or tachycardia. Labs showed UTI without elevation of lactic acid. White count was mildly elevated. Patient felt better after antibiotic in ER. Patient did not want to have hospitalization and wants try outpatient treatment. Patient was advised to follow-up with his primary care physician. Dragon Disclaimer Dragon Disclaimer This electronic medical record was generated, in whole or in part, using a voice recognition dictation system. Departure Departure Impression: Primary Impression: Urinary tract infection Disposition: HOME, SELF-CARE (at 1124) Condition: IMPROVED Referrals: RENATA MORALES MD (PCP) Patient Instructions: Urinary Tract Infection Additional Instructions: Drink plenty of liquids Follow-up with your primary care physician in 2-3 days Return to ER if not getting better Scripts Ciprofloxacin Hcl (CIPRO) 250 Mg Tablet 1 TAB PO BID for infection, #14 TAB Prov: CAREY MONTES MD 09/15/18 Problem Qualifiers Primary Impression: Urinary tract infection Urinary tract infection type: acute cystitis Hematuria presence: without hematuria Qualified Codes: N30.00 - Acute cystitis without hematuria CAREY MONTES MD Sep 15, 2018 09:21
[2018-09-15 09:27] LABS: ALBUMIN 3.3 g/dL (3.4-5.0); ALBUMIN/GLOBULIN RATIO 0.8 (1.0-1.7); TOTAL BILIRUBIN 0.8 mg/dL (0.2-1.0); TOTAL PROTEIN 7.5 g/dL (6.4-8.2)
[2018-09-15 10:14] LABS: BILIRUBIN,URINE NEGATIVE (NEG); CLARITY,URINE CLOUDY; COLOR,URINE YELLOW; NITRITE,URINE POSITIVE (NEG); PH,URINE 6.5; PROTEIN,URINE NEGATIVE (NEG-TRACE); UROBILINOGEN,URINE 0.2 mg/dL (0.2 mg/dL)
[2018-09-15 10:27] LABS: BACTERIA,URINE MANY /HPF (0-FEW); WBC,URINE TNTC /HPF (0-4)
[2018-09-15 10:28] LABS: RBC,URINE FOBS /HPF (0-2)
[2018-09-15] MEDS ORDERED: cefTRIAXone IV Push 1 GM VIAL. IVP ONE (11:15)
[2018-09-15] MEDS ORDERED: CIPR250T30 PO (11:28)
[2018-09-15 11:44] VITALS: BP 120/66
== END 2018-09-15 12:17 | disposition home or self-care (01) ==
LOC: ER 08:32
DX: N30.00 Acute cystitis without hematuria (principal); E78.00 Pure hypercholesterolemia, unspecified; I10 Essential (primary) hypertension; I25.10 Atherosclerotic heart disease of native coronary artery without angina pectoris; Z95.5 Presence of coronary angioplasty implant and graft; Z88.0 Allergy status to penicillin; Z88.5 Allergy status to narcotic agent
CPT/HCPCS: 36415; 80053; 81001; 83605; 85025; 87086; 96374; 99285; J0696; 99284-25

== ENCOUNTER → 2019-11-17 | Outpatient (CLI) | payer MEDICARE ==
[~2019-11-17] MED LIST changes: +CIPR250T30 PO; -NITR0.4T SL; +NITR0.4T24 SL; -OMEP20CA10 PO; +OMEP20CA16 PO; +SIMV40TA18 PO; -SIMV40TA3 PO
--- NOTE | 2019-11-17 11:07 | CARD ---
MR#: [id number] Date of Study: 11/17/2019 Ordering Physician: MORGAN SALGADO, Referring Physician: MORGAN SALGADO, Tech: Fabiana Barger [facility] APPROVED REPORT EXAM: Two-dimensional and M-mode echocardiogram with Doppler and color Doppler. Other Information Quality : Fair INDICATION Non STEMI 2D DIMENSIONS RVDd3.0 (2.9-3.5cm)Left Atrium(2D)3.0 (1.6-4.0cm) IVSd0.9 (0.7-1.1cm)Aortic Root(2D)2.8 (2.0-3.7cm) LVDd4.5 (3.9-5.9cm)LVOT Diameter2.0 (1.8-2.4cm) PWd0.9 (0.7-1.1cm)LVDs3.1 (2.5-4.0cm) FS (%) 32.6 %SV57.6 ml LVEF(%)61.1 (>50%) Aortic Valve AoV Peak Abdullahi.103.8cm/sAoV VTI25.1cm AO Peak GR.4.3mmHgLVOT Peak Abdullahi.96.2cm/s AO Mean GR.3mmHgAVA (VMAX)2.83cm2 THAI (VTI)2.80cm2 Mitral Valve MV E Lqbupoau081.5cm/sMV DECEL SGFL744js MV A Wrlsrbxi96.6cm/sE/A Ratio1.7 Tricuspid Valve TR P. Pwcziivw996un/sRAP FWYZVOKP3yaJl TR Peak Gr.07ouRjXAHF04jmBl Pulmonary Vein S1 Brfrskcj90.1cm/sD2 Csyxcoou04.0cm/s LEFT VENTRICLE The left ventricle is normal size. There is normal left ventricular wall thickness. The left ventricu lar systolic function is normal and the ejection fraction is within normal range. The Ejection Fracti on is 55-60%. There is normal LV segmental wall motion. Transmitral Doppler flow pattern is Grade II- pseudonormal filling dynamics. RIGHT VENTRICLE The right ventricle is normal size. The right ventricular systolic function is normal. ATRIA The left atrium size is normal. The right atrium size is normal. The interatrial septum is intact wit h no evidence for an atrial septal defect or patent foramen ovale as noted on 2-D or Doppler imaging. AORTIC VALVE The aortic valve is calcified but opens well. Doppler and Color Flow revealed no significant aortic r egurgitation. There is no significant aortic valvular stenosis. MITRAL VALVE The mitral valve is calcified but opens well. There is no evidence of mitral valve prolapse. There is no mitral valve stenosis. Doppler and Color-flow revealed trace to mild mitral regurgitation. TRICUSPID VALVE The tricuspid valve is normal in structure and function. Doppler and Color Flow revealed trace tricus pid regurgitation. There is mild pulmonary hypertension. The PA pressure was estimated at 37 mmHg. Th ere is no tricuspid valve stenosis. PULMONIC VALVE The pulmonic valve is not well visualized. Doppler and Color Flow revealed no pulmonic valvular regur gitation. There is no pulmonic valvular stenosis. GREAT VESSELS The aortic root is normal in size. The ascending aorta is normal in size. The IVC is normal in size a nd collapses >50% with inspiration. PERICARDIAL EFFUSION There is no evidence of significant pericardial effusion. Critical Notification Critical Value: No <Conclusion> The left ventricular systolic function is normal and the ejection fraction is within normal range. Th e Ejection Fraction is 55-60%. There is normal LV segmental wall motion. Signed by : Pierre Baltazar, Electronically Approved : 11/17/2019 11:06:42
== END | disposition home or self-care (01) ==
LOC: ECHO 07:32
PROVIDERS: ATTEND Internal Medicine Cardiovascular Disease
DX: I08.0 Rheumatic disorders of both mitral and aortic valves (principal); I27.20 Pulmonary hypertension, unspecified; I25.10 Atherosclerotic heart disease of native coronary artery without angina pectoris
CPT/HCPCS: 93306

== ENCOUNTER 2020-12-03 22:17 | Emergency (ER) | payer MEDICARE ==
[~2020-12-03] VITALS: Ht 165.1 cm; Wt 67.2 kg
[~2020-12-03 22:17] MED LIST changes: -FOLI0.8T2 PO; +FOLI0.8T5 PO
--- NOTE | 2020-12-04 01:31 | PHYS DOC ---
Past Medical History Past Medical History: CAD, Cancer, High Cholesterol, Hypertension, Other Additional Past Medical Histor: ESOPHAGUS CANCER 2012,AK 2011 W STENT X 1, Past Surgical History: Other Additional Past Surgical Histo: CARDIAC STENTS,THYROIDECTOMY,PARTAIL ESOPH. REMOVAL Smoking Status: Former Smoker Alcohol Use: Occasionally Drug Use: None General Adult EDM: Chief Complaint: URINARY RETENTION HPI: HPI: Patient is a 80-year-old male presenting for urinary problems. Onset was today without any known inciting event, trauma, ingestion, known mechanism of injury or other exposure. Nothing makes better or worse. Patient reports inability to fully eat urinate, when he has tried urinating today he has had dysuria and he has had worsening suprapubic tenderness. States this is happened to him in the past requiring straight cath and subsequent antibiotics with urology follow-up in outpatient setting. States he has known history of BPH and is established with a local urologist. Denies fever, chest pain, shortness of breath, cough, flank pain, trauma, back pain, changes in motor or sensory or neuro function. He is fully vaccinated against COVID-19 Review of Systems: Review of Systems: Fourteen body systems of review of systems have been reviewed. See HPI for pertinent positives and negative responses, other stuart all other systems are negative, non-pertinent or non-contributory Heart Score: C/O Chest Pain: No Risk Factors: Risk Factors: DM, Current or recent (<one month) smoker, HTN, HLP, family history of CAD, obesity. Risk Scores: Score 0 - 3: 2.5% MACE over next 6 weeks - Discharge Home Score 4 - 6: 20.3% MACE over next 6 weeks - Admit for Clinical Observation Score 7 - 10: 72.7% MACE over next 6 weeks - Early Invasive Strategies Allergies: Allergies: Allergies Coded Allergies Type Severity Reaction Last Updated Verified morphine Allergy Intermediate HALLUCINATE 10/08/15 Yes Penicillins Allergy Mild JOINT PAIN 10/08/15 Yes Physical Exam: PE: Constitutional: Well developed, well nourished, no acute distress, non-toxic appearance. Does appear uncomfortable and in pain HENT: Normocephalic, atraumatic, bilateral external ears normal, oropharynx moist, no oral exudates, nose normal. Eyes: PERRLA, EOMI, conjunctiva normal, no discharge. Neck: Normal range of motion, no tenderness, supple, no stridor. Cardiovascular: Heart rate tachycardic, sinus rhythm, no murmurs rubs or gallops Lungs & Thorax: Bilateral breath sounds clear to auscultation Abdomen: Bowel sounds normal, soft, suprapubic tenderness with guarding present, no masses, no pulsatile masses. Nonsurgical abdomen, no peritoneal signs Skin: Warm, dry, no erythema, no rash. Back: No tenderness, no CVA tenderness. Extremities: No tenderness, no cyanosis, no clubbing, ROM intact, no edema. Neurologic: Alert and oriented X 3, grossly normal motor & sensory function, no focal deficits noted. Psychologic: Anxious affect and mood Current Patient Data: Labs: Current Medications Medications (Trade) Dose Ordered Sig/Rita Route PRN Reason Start Time Stop Time Status Last Admin Dose Admin Ciprofloxacin (Cipro) 500 mg 1X ONCE PO 12/04/20 03:30 12/04/20 03:22 DC 12/04/20 03:17 Ciprofloxacin (Cipro) 250 mg STK-MED ONCE .ROUTE 12/04/20 03:15 12/04/20 03:16 DC Vital Signs: Vital Signs Date Time Temp Pulse Resp B/P (MAP) Pulse Ox O2 Delivery O2 Flow Rate FiO2 12/04/20 01:23 97.6 120 16 177/95 (122) 95 Room Air 97.6 EKG: EKG: EKG ordered and interpreted by myself at 0155 hrs. as sinus rhythm at 95 bpm, unremarkable intervals, no axis deviation, no acute ischemic findings, no STEMI Radiology/Procedures: Radiology/Procedures: [] Course & Med Decision Making: Course & Med Decision Making Airway patent, breathing unlabored, IV access and vitals obtained concerning for tachycardia HPI, physical exam and comprehensive ER work-up concerning for UTI likely causing patient's urinary retention. This has happened patient in the past Joint decision made to straight cath patient with significant urine output, 1200 cc with immediate relief and symptoms I discussed potential need for further diagnostic work-up and hospital transfer for inpatient urology consultation but given patient's hemodynamically stable state, asymptomatic state, and known cause which is patient's UTI, decision made to discharge home Patient has primary care physician and urology access, states he can be seen in upcoming 5 days for repeat evaluation in outpatient setting which reassures me. Strict return precautions discussed with verbal understanding by patient, all questions and concerns addressed prior to ER departure Darnell Disclaimer: Darnell Disclaimer: This electronic medical record was generated, in whole or in part, using a voice recognition dictation system. Departure Departure Impression: Primary Impression: Complicated UTI (urinary tract infection) Disposition: HOME / SELF CARE / HOMELESS Condition: IMPROVED Referrals: RENATA MORALES MD (PCP) Additional Instructions: You were seen for a urinary tract infection. Please continue to take the antibiotics as prescribed.Follow up with primary care for further management and as disclosed, you would benefit from outpatient follow-up with your urologist. You should return to the ED if you develop worsening pain, fever, flank pain, or any other new or concerning symptoms. Scripts Ciprofloxacin Hcl (CIPRO) 500 Mg Tablet 1 TAB PO BID for 7 Days, #13 TAB 0 Refills Prov: VILMA STANLEY DO 12/04/20 VILMA STANLEY DO Dec 04, 2020 01:31
[2020-12-04 01:45] LABS: BASO # 0.1 x10^3/uL (0.0-0.2); BASO % 1 % (0-3); EOS % 0 % (0-3); HEMATOCRIT 44.7 % (39.0-53.0); HEMOGLOBIN 15.3 g/dL (13.0-17.5); LYMPH # 1.5 x10^3/uL (1.0-4.8); LYMPH % 8 % (24-48); MEAN CORPUSCULAR HEMOGLOBIN 33 pg (25-35); MEAN CORPUSCULAR HGB CONC 34 g/dL (31-37); MEAN CORPUSCULAR VOLUME 95 fL (79-100); MONO # 1.1 x10^3/uL (0.0-1.1); MONO % 6 % (0-9); NEUT # 15.6 x10^3/uL (1.8-7.7); NEUT % 85 % (31-73); PLATELET COUNT 238 x10^3/uL (140-400); RED CELL DISTRIBUTION WIDTH 13.3 % (11.5-14.5); WHITE BLOOD COUNT 18.3 x10^3/uL (4.0-11.0)
[2020-12-04 01:47] LABS: BILIRUBIN,URINE NEGATIVE (NEG); CLARITY,URINE CLEAR; COLOR,URINE YELLOW; NITRITE,URINE NEGATIVE (NEG); PROTEIN,URINE NEGATIVE (NEG-TRACE); UROBILINOGEN,URINE 0.2 mg/dL (0.2 mg/dL)
[2020-12-04 01:54] LABS: BACTERIA,URINE MANY /HPF (0-FEW)
[2020-12-04 01:54] LABS: CALCIUM 9.6 mg/dL (8.5-10.1); CREATININE 1.1 mg/dL (0.7-1.3); GFR 64.7; POTASSIUM 3.9 mmol/L (3.5-5.1)
--- NOTE | 2020-12-04 01:59 | EKG ---
[facility] [address] [place] [address] Test Date: 2020-12-04 Test Time: 01:50:44 Pat Name: RIMA DEL REAL Department: Room: Gender: M [employer]: : 1940 Requested By: VILMA STANLEY Order Number: [id number] Reading MD: Measurements Intervals Arnold Rate: 95 P: 78 NH: 184 QRS: 56 QRSD: 76 T: 59 QT: 352 QTc: 446 Interpretive Statements SINUS RHYTHM QRS(T) CONTOUR ABNORMALITY CONSIDER INFERIOR MYOCARDIAL DAMAGE POSSIBLY ABNORMAL ECG RI6.01 No previous ECG available for comparison
[2020-12-04 02:14] VITALS: BP 132/63
[2020-12-04] MEDS ORDERED: CIPR500T94 PO (03:05)
[2020-12-04] MEDS ORDERED: CIPROFLOXACIN HCL 250 MG TABLET. ONE (03:15)
[2020-12-04] MEDS ORDERED: CIPROFLOXACIN HCL 250 MG TABLET. PO ONE (03:30)
== END 2020-12-04 03:21 | disposition home or self-care (01) ==
LOC: ER 22:17
DX: N39.0 Urinary tract infection, site not specified (principal); I25.10 Atherosclerotic heart disease of native coronary artery without angina pectoris; E78.00 Pure hypercholesterolemia, unspecified; I10 Essential (primary) hypertension; I25.2 Old myocardial infarction; Z88.5 Allergy status to narcotic agent; Z88.0 Allergy status to penicillin
CPT/HCPCS: 36415; 80048; 81001; 85025; 87086; 93005; 99284; P9612